=== PATIENT | female | born 1940 | race Caucasian/White ===

== ENCOUNTER → 2019-04-30 21:13 | Outpatient (CLI) | payer MEDICARE, SELFPAY ==
[2019-04-30 18:48] VITALS: BMI 19.5
[2019-04-30 21:50] LABS: AST(SGOT) 18 U/L (15-37); Alanine Aminotransfer ALT/SGPT 23 U/L (13-56); Albumin, Serum 3.5 g/dL (3.2-5.0); Alkaline Phosphatase 93 U/L (45-117); Anion Gap 5 (5-15); BUN 30 mg/dL (7-18); BUN/Creat Ratio 21.7 RATIO (10-20); Calcium,Total 8.9 mg/dL (8.5-10.1); Chloride 104 mmol/L (98-107); Cholesterol 231 mg/dL (200); Creatinine, Serum 1.38 mg/dL (0.55-1.02); EST Glomerular Filtration Rate 39 mL/min (>60); Est Glom Filt Rate - Afr Amer 48 mL/min (>60); Globulin 3.5 g/dL (2.2-4.2); Glucose 105 mg/dL (74-106); High Density Lipoprotein 80 mg/dL; Magnesium 1.9 mg/dL (1.6-2.6); Potassium 3.8 mmol/L (3.5-5.1); Sodium Level 143 mmol/L (136-145); Triglycerides 193 mg/dL; Uric Acid 4.7 mg/dL (2.6-6.0); Very Low Density Lipoprotein 39 mg/dL (5-40)
[2019-04-30 22:25] LABS: Absolute Lymphocyte Count 1.46 X10^3/uL (0.83-4.51); Basophil# 0.07 X10^3/uL; Basophil% 0.9 % (0-1); Eosinophil# 0.14 X10^3/uL; Eosinophils% 1.9 % (0-5); Hematocrit 44.2 % (37-47); Hemoglobin 14.3 g/dL (12.0-15.0); Lymphocyte # 1.46 X10^3/ul (4.0); Lymphocyte % 19.7 % (19-41); Mean Corp Hgb Conc 32.4 g/dL (32-36); Mean Corpuscular Volume 98.9 fL (81-99); Mean Platelet Vol. 9.8 fl (6.2-12.0); Monocyte# 0.66 X10^3/uL; Monocyte% 8.9 % (0-10); NRBC Flagged by Analyzer 0 % (0-5); Neutrophil # 5.01 X10^3/uL (2.7-7.7); Neutrophil % 67.5 % (47-70); Platelet Count 166 K/mm3 (150-450); RBC Distribution Width CV 13.5 % (11.6-14.6); Red Blood Count 4.47 M/mm3 (4.2-5.4); White Blood Count 7.4 K/mm3 (4.4-11.0)
== END ==
PROVIDERS: Referring Provider Nurse Practitioner; Visit Provider Nurse Practitioner
DX: E78.00 Pure hypercholesterolemia, unspecified (principal); G47.62 Sleep related leg cramps
CPT/HCPCS: 80053; 80061; 83735; 84550; 85025

== ENCOUNTER 2020-01-11 23:14 | Inpatient (IN) | payer MEDICARE, SELFPAY ==
[2019-10-01 15:44] VITALS: BMI 24.0
[2020-01-11 23:15] VITALS: BP 168/150; PULSE 77; RESP 34; TEMP 37.1; O2SAT 77; BMI 21.0
[2020-01-11 23:20] VITALS: PULSE 119; RESP 36; O2SAT 99
--- NOTE | 2020-01-11 23:31 | EKG12_ITS ---
Test Reason : SOB Blood Pressure : / mmHG Vent. Rate : 109 BPM Atrial Rate : 109 BPM P-R Int : 136 ms QRS Dur : 090 ms QT Int : 342 ms P-R-T Axes : 066 076 082 degrees QTc Int : 460 ms Sinus tachycardia with Premature atrial complexes Otherwise normal ECG Confirmed by KATELYN GODINEZ, BRENNON ([id number]), editor index SILVIA BELLO ([id number]) on 01/14/2020 9:34:37 AM Referred By: BRIAN Confirmed By:BRENNON ZEPEDA MD
[2020-01-11 23:59] LABS: Absolute Lymphocyte Count 0.56 X10^3/uL (0.83-4.51); Absolute Neutrophil Count 7.7 X10^3/uL (2.0-7.7); Basophil# 0.03 X10^3/uL; Basophil% 0.3 % (0-1); Eosinophil# 0.04 X10^3/uL; Eosinophils% 0.4 % (0-5); Hematocrit 43.6 % (37-47); Hemoglobin 14.2 g/dL (12.0-15.0); Lymphocyte # 0.56 X10^3/ul (4.0); Lymphocyte % 6.1 % (19-41); Mean Corp Hgb Conc 32.6 g/dL (32-36); Mean Corpuscular Hgb 33.3 pg (27.0-32.0); Mean Corpuscular Volume 102.3 fL (81-99); Mean Platelet Vol. 9.6 fl (6.2-12.0); Monocyte# 0.88 X10^3/uL; Monocyte% 9.5 % (0-10); NRBC Flagged by Analyzer 0 % (0-5); Neutrophil # 7.66 X10^3/uL (2.7-7.7); POSITIVE DIFFERENTIAL YES; Platelet Count 187 K/mm3 (150-450); RBC Distribution Width CV 13.2 % (11.6-14.6); Red Blood Count 4.26 M/mm3 (4.2-5.4); White Blood Count 9.2 K/mm3 (4.4-11.0)
[2020-01-12] VITALS (30 sets, daily range): BP systolic 76–187; BP diastolic 58–95; PULSE 98–120; RESP 14–34; TEMP 36.1–37.1; O2SAT 88–100; BMI 21.4; BMI 21.5
[2020-01-12] MEDS: 0.9% Normal Saline 1,000 ML 500 ML IV (00:02)
[2020-01-12 00:03] LABS: Differential Indicated SCAN CRITERIA MET
[2020-01-12] MEDS: Ipratropium/Albuterol Sulfate 3 ML AMPUL.NEB INHALATION ×6 (00:03→22:15)
[2020-01-12] MEDS: Albuterol 2.5 MG/3 ML VIAL.NEB. INHALATION ×4 (00:12→05:09)
[2020-01-12 00:18] LABS: Anion Gap 5 (5-15); BUN 20 mg/dL (7-18); BUN/Creat Ratio 13.7 RATIO (10-20); Calcium,Total 8.3 mg/dL (8.5-10.1); Chloride 106 mmol/L (98-107); Creatinine, Serum 1.46 mg/dL (0.55-1.02); EST Glomerular Filtration Rate 37 mL/min (>60); Est Glom Filt Rate - Afr Amer 45 mL/min (>60); Estimated Creatinine Clearance 25.52 ml/min; Glucose 153 mg/dL (74-106); Potassium 3.4 mmol/L (3.5-5.1); Sodium Level 140 mmol/L (136-145)
[2020-01-12 00:39] LABS: Differential Comment SCANNED
--- NOTE | 2020-01-12 00:44 | CT_ITS ---
STUDY: CTA CHEST REASON FOR EXAM: Female, 79 years old. SOB, ELEVATED D-DIMER RADIATION DOSAGE (If Supplied By Facility): CTDIvol = ( 6.835 ) mGy, DLP = ( 206.50 ) mGycm TECHNIQUE: The examination was performed with the intravenous administration of IV 100 ML ISOVUE 370. Post-processing of the angiographic images was performed, with multiplanar reformation and 3D reconstruction. Individualized dose optimization techniques were used for this CT. COMPARISON: None. FINDINGS: Normal enhancement of the main pulmonary artery and right and left pulmonary arteries. Normal enhancement of the bilateral peripheral pulmonary arteries. There is no demonstrated pulmonary embolism. Normal thoracic aorta and visualized great vessels. There is no demonstrated aortic dissection. Normal heart and pericardium. Normal mediastinum. Normal hilar regions. Normal visualized trachea and bronchi. The lungs are well expanded. Ill-defined subpleural groundglass opacities are seen in the lung apices, may represent atypical pneumonia or viral pneumonia (COVID-19 ?). Normal pleura. Normal chest wall structures. Normal osseous structures. Normal visualized upper abdomen. CT/CTA Chest W/WO Contrast IMPRESSION: No demonstrated pulmonary embolism or arterial dissection. Ill-defined subpleural groundglass opacities are seen in the lung apices, may represent atypical pneumonia or viral pneumonia (COVID-19 ?). Electronically Signed: [place], at 2:01 EDT Tel , Service support ,
[2020-01-12 01:18] LABS: Probe Check PASS; Specimen Processing Control PASS
--- NOTE | 2020-01-12 02:05 | ED.VISSUMM ---
- ER Visit Summary Date of Service: 01/12/20 Chief Complaint: [Shortness of breath] History of Present Illness: The patient is a 79 F [presents to the emergency department complaint of shortness of breath over the last 2 days. Patient's had a bit of a cough and at times sputum production. Shortness of breath is been more severe with activity and exertion. Patient normally wears 3 L of O2 at home. Patient denies any chest pain. She denies any fever. She denies recent travel or surgery. She denies any exposures to anybody with COVID-19. On EMS arrival patient was noted to have a O2 sat of 77%. Patient was given aerosols in route to the hospital and Solu-Medrol 125 mg IV.] Physical Examination: [HEENT-PERRLA, EOMI. Cranial nerves II through XII grossly intact. TMs clear. Mucous membranes moist. No adenopathy. Cardiovascular-regular rate and rhythm without murmur or ectopy Lungs-breath sounds bilaterally with some expiratory wheezes. Patient is tachypneic. Patient has mild conversational dyspnea. Abdomen-normoactive bowel sounds, soft, nontender, no rebound or rigidity, no peritoneal signs. Extremities-intact ?4, normal range of motion, normal pulses, atraumatic] Test Results: [EKG obtained arrival shows sinus tachycardia with a ventricular rate of 109 bpm with no acute segment changes. CBC with differential showed a white count of 9.2, hemoglobin 14, hematocrit 44, plates 181. Chemistries unremarkable. BUN was 20 and creatinine 1.46. Troponin less than 0.015. D-dimer was 1.9. Lactate was 1.0. CTA of the chest was negative for PE or dissection. She had some increased haziness in the upper lobes and could not rule out viral pneumonia versus atypical pneumonia. Blood cultures ordered and pending. COVID-19 test was negative.] Emergency Department Course and Treatment: [Patient had DuoNeb aerosol given. Patient was placed on BiPAP. Patient started on Levaquin 750 mg IV.] Treatment Plan: [Admit] Disposition: [Admit] Impression: [COPD exacerbation Hypoxemia Respiratory failure] This note was generated with [employer] software. It may contain incorrect words, spelling, and punctuation that were not noted in review of the chart prior to signing ED Disposition - Plan for ED Patient: Referrals: Kulkarni,Mariangel, AEROBICS TEACHER-C [Primary Care Provider] -
[2020-01-12] MEDS: levoFLOXacin IV 750 MG/150 ML BAG 100 MG IV (02:49)
[2020-01-12 03:01] LABS: Allen Test Positive; Base Excess 0 mmol/L (-2 to +2); Bicarbonate 26.5 mmol/L (22-26); Blood Gas Specimen Type ART; FI02 30; O2 Delivery Device BiPAP; PO2 66 mmHG (75-100); SITE R Radial; SO2 90 % (95-99); Total Carbon Dioxide 28 mmol/L; pH 7.31 (7.35-7.45)
--- NOTE | 2020-01-12 03:06 | PCM.HP.STD ---
Problem List (1) COPD with acute exacerbation Status: Chronic (2) Sleep apnea in adult Status: Chronic (3) HTN (hypertension) Status: Chronic Qualifiers: (4) COPD (chronic obstructive pulmonary disease) with acute bronchitis Status: Chronic (5) COPD with exacerbation Status: Chronic History of Present Illness Date of Admission: 01/12/20 Chief Complaint: SOB The patient is a 79 year old F with a significant history of bowel malignancy status post bowel resection; cervical cancer status post TABSO; hypertension and COPD who presented emergency department with 2-day history of progressively worsening shortness of breath. Her shortness of breath is at rest and is increased markedly with mild exertion. Associated with his symptoms is productive cough of copious dark sputum. She has a chronic cough of clear sputum. However this time around her sputum is darker and is more copious. She has wheezes. At baseline she uses 2 L of oxygen but she has had to increase her oxygen demand 3 L. Several breathing treatments at home did not help her. When paramedics arrived her oxygen saturation was 77%. Patient was given breathing treatments and 125 mg of Solu-medrol by paramedics. She has wheezes. She denies fever or chills. She is at home by herself all the time. Every time that she goes out she wears a mask. She denies any known contact with anyone with COVID-19 virus infection. Past Medical History Past Medical History (Chronic Problems): Chronic Problems (Last Reviewed 01/12/20 @ 03:[address] Grant Lennon MD) COPD with exacerbation (Chronic) COPD with acute exacerbation (Chronic) Sleep apnea in adult (Chronic) HTN (hypertension) (Chronic) COPD (chronic obstructive pulmonary disease) with acute bronchitis (Chronic) Medical History: Medical History (Last Reviewed 01/12/20 @ 03:[address] 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 Seizure disorder G40.909 COPD exacerbation J44.1 Allergies Penicillins Allergy (Severe, Verified 12/04/19 13:42) hives Home Medications: Ambulatory Orders Medication Instructions Recorded oxygen-air delivery systems See Rx Instructions .ROUTE 03/26/19 .MEDSUPPLY #1 albuterol sulfate 90 mcg/actuation 2 puff INHALATION Q4H PRN 90 Days 06/04/19 aerosol inhaler #25.5 g amlodipine 10 mg tablet 10 mg PO DAILY #90 tab 06/04/19 budesonide-formoterol HFA 160 2 puff INHALATION BID #30.6 g 06/04/19 mcg-4.5 mcg/actuation aerosol inhaler calcium carbonate 600 mg (1,500 1 cap PO BID #180 cap 06/04/19 mg)-vitamin D3 500 unit capsule docusate sodium 100 mg capsule 100 mg PO BID PRN 06/04/19 fluticasone furoate 100 1 inh INHALATION DAILY 90 Days #90 06/04/19 mcg-vilanterol 25 mcg/dose ea inhalation powder ipratropium 0.5 mg-albuterol 3 mg 3 ml INHALATION Q4H PRN #180 ml 06/04/19 (2.5 mg base)/3 mL nebulization soln lisinopril 40 mg tablet 40 mg PO DAILY #90 tab 06/04/19 methimazole 5 mg tablet 2.5 mg PO DAILY #45 tab 06/04/19 metoprolol succinate 100 mg 100 mg PO DAILY #90 tab 06/04/19 tablet,extended release 24 hr phenytoin sodium extended 100 mg 100 mg PO BID #180 cap 06/04/19 capsule rosuvastatin 10 mg tablet 10 mg PO DAILY #90 tab 06/04/19 trazodone 100 mg tablet 100 mg PO QHS #90 tab 06/04/19 clonidine HCl 0.2 mg tablet 0.2 mg PO BID #180 tab 08/20/19 nicotine 14 mg/24 hr daily 1 patch TRANSDERMAL DAILY #28 ea 10/01/19 transdermal patch Surgical History: Surgical History (Last Reviewed 01/12/20 @ 03:[address] Grant Lennon MD) FH: total abdominal hysterectomy and bilateral salpingo-oophorectomy Z84.2 History of bowel resection Z90.49 Smoking Status: Current every day smoker Tobacco Use: Cigarettes Alcohol: None - *Family History Maternal Family History: Family History (Last Reviewed 01/12/20 @ 03:[address] Grant Lennon MD) Aunt Breast cancer Review of Systems Constitutional: Reports: Weakness, Fatigue. Denies: Chills, Fever, Weight Change HEENT: Denies: Head Aches, Sinus Congestion, Sinus Drainage Cardiovascular: Denies: Chest Pain, Palpitations Respiratory: Reports: Cough, Shortness of breath at rest, Sputum production, Wheezing Gastrointestinal: Denies: Abdominal Pain, Nausea, Vomiting Genitourinary: Denies: Dysuria Musculoskeletal: Denies: Joint Pain, Joint Tenderness Skin: Denies: Rash, Wounds Neurological: Denies: Numbness, Tingling, Focal weakness Psychiatric: Denies: Anxiety, Depression, Homicidal Ideations, Suicidal Ideations Hematologic/ Lymphatic: Denies: Easy Bruising, Easy Bleeding VTE Information - Inpt Only VTE Present on Admission: No VTE Mechan Device Prophylaxis: None VTE Pharm Prophylaxis ordered?: Yes - Physical Exam Vitals/I&O's: Vital Signs Temp Pulse Resp BP Pulse Ox 97.0 F L 104 H 26 H 94/83 H 95 01/12/20 02:50 01/12/20 02:50 01/12/20 02:50 01/12/20 02:50 01/12/20 02:50 Oxygen Flow Rate (L/min) 5 Oxygen Delivery Method Bi-pap Weight: 52.2 kg Body Mass Index (BMI) 21.0 Intake and Output for Last 24 Hours 01/10/20 01/11/20 01/12/20 23:59 23:59 23:59 Intake Total 1000 / 1000 Balance 1000 / 1000 General: Alert, Oriented x3, Cooperative HEENT: Atraumatic, PERRLA, EOMI, Normocephalic Neck: Supple, No JVD, Negative Carotid Bruits Lungs: Diminished, Rhonchi, Short of Breath, Tachypneic, Using Accessory Muscles, Wheezes Cardiovascular: Normal S1, Normal S2, No murmurs, Tachycardic Abdomen: Bowel Sounds Present, Soft, Non Tender Extremities: No edema, Capillary Refill Less than 3 Seconds Skin: No rashes, No breakdown Musculoskeletal: No Tenderness to Palpation of Joints or Extremities Neurological: Cranial nerves II-XII grossly intact Psych/Mental Status: Normal Affect, Appropriate Laboratory Results 01/11/20 23:45: WBC 9.2, RBC 4.26, Hgb 14.2, Hct 43.6, MCV 102.3 H, MCH 33.3 H, MCHC 32.6, RDW Std Deviation 50.0 H, RDW Coeff of Avelino 13.2, Plt Count 187, MPV 9.6, Immature Gran % (Auto) 0.700, Neut % (Auto) 83.0 H, Lymph % (Auto) 6.1 L, [place] % (Auto) 9.5, Eos % (Auto) 0.4, Baso % (Auto) 0.3, Absolute Neuts (auto) 7.7, Absolute Lymphs (auto) 0.56 L, Nucleated RBC % 0, Differential Comment SCANNED 01/11/20 23:45: D-Dimer Quant (PE/DVT) 1.90 H* 01/11/20 23:45: Sodium 140, Potassium 3.4 L, Chloride 106, Carbon Dioxide 29.0, Anion Gap 5, BUN 20 H, Creatinine 1.46 H, Estim Creat Clear Calc 25.52, Est GFR (MDRD) Af Amer 45 L, Est GFR (MDRD) Non-Af 37 L, BUN/Creatinine Ratio 13.7, Glucose 153 H, Calcium 8.3 L, Troponin I < 0.015 01/11/20 23:45: Lactic Acid 1.0 01/11/20 23:50: COVID-19 (NINOSKA) Negative 01/12/20 02:52: Specimen Type ART, Sample Site R Radial, pH 7.31 L, Bicarbonate Actual 26.5 H, Total CO2 28, Base Excess 0, O2 Saturation 90 L, O2 % 30, ABG pCO2 53.0 H, ABG pO2 66 L, Vishnu Test Positive, Respiration Rate 14.0000, O2 Delivery Device BiPAP Current Medications Levofloxacin (Levaquin Iv) 750 mg in 150 mls @ 100 mls/hr IV X1 ONE Stop: 01/12/20 03:34 Last Admin: 01/12/20 02:49 Dose: 100 mls/hr Documented by: Assessment/Plan The patient is a 79 year old F with a significant history of bowel malignancy status post bowel resection; cervical cancer status post TABSO; hypertension and COPD who presented emergency department with 2-day history of progressively worsening shortness of breath; increased copious dark sputum; wheezing; and increased hypoxia requiring BiPAP at emergency department. Acute hypoxemic respiratory failure secondary to COPD exacerbation Patient required BiPAP at emergency department due to increased work of breathing and hypoxia with partial oxygen saturation of 66 mmHg on ABG. Independent interpretation of actual CTA chest showed ill-defined opacities in lung apexes. Received Solu-Medrol 125 mg at emergency department. Will be continued on Solu-Medrol 40 mg every 8 hours. Received breathing treatments by paramedics. Also was given DuoNeb at emergency department. DuoNeb every 4 hours while awake ordered. Albuterol as needed Received Levaquin IV at emergency department; continued and adjusted per creatinine clearance Placed on BiPAP at emergency department; continued. We will admit to PCU on stepdown because of marginal blood pressures. Patient does not want CPR ; intubation or pressors and so there is no need for ICU admission at this time. Covid-19 screen was negative. Patient denies any exposure to someone with a covid. Also chest imaging is not classic for a covid although there is some ill-defined opacity at apex. Will get comprehensive respiratory pathogen panel. Monitor BMP and CBC Hypokalemia On presentation her potassium was 3.4. We will replace with 20 mEq of potassium taking note of CKD. History of hypertension On Presentation her blood pressure was marginal Hold all home blood pressure medications. CKD stage III Stable Tobacco abuse Counseled Nicotine patch prescribed. DVT Prophylaxis Subcutaneous Lovenox Inpatient E&M: 77251 Init Hosp L3
[2020-01-12 04:25] LABS: Absolute Lymphocyte Count 0.25 X10^3/uL (0.83-4.51); Absolute Neutrophil Count 8.3 X10^3/uL (2.0-7.7); Basophil# 0.03 X10^3/uL; Basophil% 0.3 % (0-1); Eosinophil# 0.04 X10^3/uL; Eosinophils% 0.4 % (0-5); Hematocrit 40.1 % (37-47); Hemoglobin 12.7 g/dL (12.0-15.0); Lymphocyte # 0.25 X10^3/ul (4.0); Lymphocyte % 2.8 % (19-41); Mean Corp Hgb Conc 31.7 g/dL (32-36); Mean Corpuscular Volume 104.2 fL (81-99); Mean Platelet Vol. 9.4 fl (6.2-12.0); Monocyte% 3.3 % (0-10); NRBC Flagged by Analyzer 0 % (0-5); Neutrophil # 8.32 X10^3/uL (2.7-7.7); Neutrophil % 92.8 % (47-70); POSITIVE DIFFERENTIAL YES; POSITIVE MORPHOLOGY YES; Platelet Count 168 K/mm3 (150-450); RBC Distribution Width CV 13.4 % (11.6-14.6); RBC Distribution Width SD 51.8 fl (35.1-43.9); Red Blood Count 3.85 M/mm3 (4.2-5.4)
[2020-01-12 04:38] LABS: Anion Gap 5 (5-15); BUN 20 mg/dL (7-18); BUN/Creat Ratio 14.6 RATIO (10-20); Calcium,Total 7.8 mg/dL (8.5-10.1); Chloride 106 mmol/L (98-107); Creatinine, Serum 1.37 mg/dL (0.55-1.02); EST Glomerular Filtration Rate 40 mL/min (>60); Est Glom Filt Rate - Afr Amer 48 mL/min (>60); Glucose 216 mg/dL (74-106); Phosphorus 3.5 mg/dL (2.5-4.9); Potassium 3.6 mmol/L (3.5-5.1); Sodium Level 138 mmol/L (136-145)
[2020-01-12 05:03] LABS: Differential Indicated SCAN CRITERIA MET
[2020-01-12 05:05] LABS: Differential Comment SCANNED
[2020-01-12] MEDS: 0.9% Saline Lock 10 ML Syringe IV ×3 (05:39→21:59)
[2020-01-12] MEDS: Enoxaparin 30 MG/0.3 ML Syringe SC (08:26)
[2020-01-12] MEDS: Phenytoin Na 100 MG Capsule PO ×2 (08:26→16:30)
[2020-01-12] MEDS: guaiFENesin 1,200 MG Tablet 1200 MG PO ×2 (08:26→21:58)
[2020-01-12] MEDS: Methimazole 5 MG Tablet 2.5 MG PO (08:26)
--- NOTE | 2020-01-12 10:22 | PN_ITS ---
Subjective: Patient seen and examined. She was admitted with a complaint of shortness of breath, and is being managed for acute COPD exacerbation. COVID 19 test was negative. She complains of still feeling shortness of breath. However, she thinks it is much better than when she came in. She still has a dry couhg. Tachycardia and tachypnea have improved. She is now off BIPAP and is on 2L of oxygen by nasal canula. Vitals/I&O's: Vital Signs Temp Pulse Resp BP Pulse Ox 98.3 F 99 20 H 106/78 100 01/12/20 10:00 01/12/20 10:00 01/12/20 10:00 01/12/20 10:00 01/12/20 10:00 Oxygen Flow Rate (L/min) 2 Oxygen Delivery Method Nasal Cannula Weight: 117 lb 8.102 oz Body Mass Index (BMI) 21.4 Intake and Output for Last 24 Hours 01/10/20 01/11/20 01/12/20 23:59 23:59 23:59 Intake Total 1390 / 1390 Balance 1390 / 1390 General: Alert, Oriented x3, Cooperative, No apparent distress HEENT: Atraumatic, PERRLA, EOMI, Normocephalic Oral: Dry Mucosa Neck: Supple, No JVD, Negative Carotid Bruits Lungs: - - diminished breath sounds bibasally, no wheezes or crackles. on 2L of oxygen. Cardiovascular: Regular rate, Regular Rhythm, Normal S1, Normal S2, No murmurs Abdomen: Bowel Sounds Present, Soft, Non Tender Extremities: No clubbing, No cyanosis, No edema, Capillary Refill Less than 3 Seconds Skin: No rashes, No breakdown Musculoskeletal: No Tenderness to Palpation of Joints or Extremities Lymphatic: No Cervical, Supraclavicular, or Inguinal Adenopathy Neurological: Cranial nerves II-XII grossly intact, Neuro grossly intact, Motor Exam 5/5 strength throughout Psych/Mental Status: Normal Affect, Appropriate, Alert and oriented to time, place, person, mood and affect Laboratory Results 01/11/20 23:45: WBC 9.2, RBC 4.26, Hgb 14.2, Hct 43.6, MCV 102.3 H, MCH 33.3 H, MCHC 32.6, RDW Std Deviation 50.0 H, RDW Coeff of Avelino 13.2, Plt Count 187, MPV 9.6, Immature Gran % (Auto) 0.700, Neut % (Auto) 83.0 H, Lymph % (Auto) 6.1 L, [place] % (Auto) 9.5, Eos % (Auto) 0.4, Baso % (Auto) 0.3, Absolute Neuts (auto) 7.7, Absolute Lymphs (auto) 0.56 L, Nucleated RBC % 0, Differential Comment SCANNED 01/11/20 23:45: D-Dimer Quant (PE/DVT) 1.90 H* 01/11/20 23:45: Sodium 140, Potassium 3.4 L, Chloride 106, Carbon Dioxide 29.0, Anion Gap 5, BUN 20 H, Creatinine 1.46 H, Estim Creat Clear Calc 25.52, Est GFR (MDRD) Af Amer 45 L, Est GFR (MDRD) Non-Af 37 L, BUN/Creatinine Ratio 13.7, Glucose 153 H, Calcium 8.3 L, Troponin I < 0.015 01/11/20 23:45: Lactic Acid 1.0 01/11/20 23:50: COVID-19 ([facility]IN[facility]KA) Negative 01/12/20 02:52: Specimen Type ART, Sample Site R Radial, pH 7.31 L, Bicarbonate Actual 26.5 H, Total CO2 28, Base Excess 0, O2 Saturation 90 L, O2 % 30, ABG pCO2 53.0 H, ABG pO2 66 L, Vishnu Test Positive, Respiration Rate 14.0000, O2 Delivery Device BiPAP 01/12/20 04:20: WBC 9.0, RBC 3.85 L, Hgb 12.7, Hct 40.1, MCV 104.2 H, MCH 33.0 H , MCHC 31.7 L, RDW Std Deviation 51.8 H, RDW Coeff of Avelino 13.4, Plt Count 168, MPV 9.4, Immature Gran % (Auto) 0.400, Neut % (Auto) 92.8 H, Lymph % (Auto) 2.8 L, [place] % (Auto) 3.3, Eos % (Auto) 0.4, Baso % (Auto) 0.3, Absolute Neuts (auto) 8.3 H, Absolute Lymphs (auto) 0.25 L, Nucleated RBC % 0, Differential Comment SCANNED 01/12/20 04:20: Sodium 138, Potassium 3.6, Chloride 106, Carbon Dioxide 27.0, Anion Gap 5, BUN 20 H, Creatinine 1.37 H, Estim Creat Clear Calc 27.20, Est GFR (MDRD) Af Amer 48 L, Est GFR (MDRD) Non-Af 40 L, BUN/Creatinine Ratio 14.6, Glucose 216 H, Calcium 7.8 L, Phosphorus 3.5 Diagnostic Data Chest CTA 01/12/20 00:44 IMPRESSION: No demonstrated pulmonary embolism or arterial dissection. Ill-defined subpleural groundglass opacities are seen in the lung apices, may represent atypical pneumonia or viral pneumonia (COVID-19 ?). Electronically Signed: Antonio Minerva, at 2:01 EDT Tel , Service support , Current Medications Acetaminophen (Tylenol) 650 mg PO Q6H PRN PRN PRN Reason: Pain Score 1-10/Temp > 100.7 F Albuterol Sulfate (Ventolin Aerosols) 2.5 mg INHALATION Q2H PRN PRN PRN Reason: Shortness of Breath/Wheezing Last Admin: 01/12/20 05:09 Dose: 2.5 mg Documented by: Albuterol/Ipratropium (Duoneb) 3 ml INHALATION Q4HWA.RT [facility] Last Admin: 01/12/20 07:24 Dose: 3 ml Documented by: Atorvastatin Calcium (Lipitor) 20 mg PO DAILY@2200 [facility] Docusate Sodium (Colace) 100 mg PO BID PRN PRN PRN Reason: Constipation Enoxaparin Sodium (Lovenox) 30 mg SC DAILY [facility] Last Admin: 01/12/20 08:26 Dose: 30 mg Documented by: Guaifenesin (Mucinex) 1,200 mg PO BID [facility] Last Admin: 01/12/20 08:26 Dose: 1,200 mg Documented by: Levofloxacin (Levaquin Iv) 750 mg in 150 mls @ 100 mls/hr IV Q48@2200 [facility] Sodium Chloride () 250 mls @ 15 mls/hr IV .[id number] PRN PRN Reason: Saline Flush Sodium Chloride () 250 mls @ 15 mls/hr IV .[id number] PRN PRN Reason: Additional IVPB Infusion Melatonin (Melatonin) 3 mg PO QHS PRN PRN PRN Reason: INSOMNIA Methimazole (Tapazole) 2.5 mg PO DAILY [facility] Last Admin: 01/12/20 08:26 Dose: 2.5 mg Documented by: Methylprednisolone (Solu-Medrol) 40 mg IV Q8 [facility] Last Admin: 01/12/20 05:39 Dose: 40 mg Documented by: Nicotine (Nicoderm Cq (Pbkc)) 21 mg TRANSDERM. DAILY [facility] Last Admin: 01/12/20 08:27 Dose: 21 mg Documented by: Ondansetron HCl (Zofran) 4 mg IV Q8H PRN PRN PRN Reason: Nausea Phenytoin Sodium (Dilantin) 100 mg PO BIDCM [facility] Last Admin: 01/12/20 08:26 Dose: 100 mg Documented by: Sodium Chloride () 10 - 40 ml IV UD PRN PRN Reason: SALINE FLUSH Last Admin: 01/12/20 05:39 Dose: 40 ml Documented by: Trazodone HCl (Desyrel) 100 mg PO QHS [facility] STROKE Vital Signs/Narrative: Vital Signs Temp Pulse Resp BP BP Pulse Ox 01/12/20 10:00 98.3 F 99 20 H 106/78 100 01/12/20 08:00 98.8 F 103 H 22 H 104/83 H 94 01/12/20 07:24 98 22 H 98 01/12/20 07:03 100 Medical Necessity - Tobacco Use Smoking Status: Current every day smoker Tobacco Use: Cigarettes Assessment/Plan # Acute hypoxic respiratory failure due to COPD exacerbation * now off BIPAP and on 2L of oxygen by nasal canula * on breathing treatments with bronchodilators * CTA of chest showed no PE, but showed ill defined subpleural groundglass opacities in the lung apices which may represent atypical pneumonia or viral pneumonia * COVID 19 test was negative * on IV levaquin * respiratory panel pending * on IV solumedrol * titrate oxygen to maintain sats>90% * #Hypokalemia: resolved #COPD exacerbation: as under acute hypoxic respiratory failure # Hypertension: BP meds held on admission o/a of low BP. BP this morning is 106.78. Will continue holding BP meds #Seizure disorder: On phenytoin. #Hyperlipidemia: On statin. #CKD stage III: Creatinine is 1.37 which is around his baseline. Stable. #Nicotine dependence: on nicotine patch DVT prophylaxis:on lovenox renal dose Inpatient E&M: [id number] [facility] Hosp L3
[2020-01-12] MEDS: Atorvastatin Calcium 20 MG Tablet PO (21:58)
[2020-01-12] MEDS: traZODone 100 MG Tablet PO (23:25)
[2020-01-13] VITALS (17 sets, daily range): BP systolic 161–188; BP diastolic 80–98; PULSE 90–105; RESP 16–26; TEMP 36.5–36.8; O2SAT 92–98
--- NOTE | 2020-01-13 01:00 | CPS ---
nursing stated that the pt became nauseous after applying the BiPAP and pt was unable to tolerate. pt on O2 at 3 lpm nasal cannula
[2020-01-13] MEDS: Ipratropium/Albuterol Sulfate 3 ML AMPUL.NEB INHALATION ×5 (04:40→20:18)
[2020-01-13] MEDS: 0.9% Saline Lock 10 ML Syringe IV ×3 (05:03→22:06)
[2020-01-13 06:13] LABS: Absolute Lymphocyte Count 0.54 X10^3/uL (0.83-4.51); Basophil# 0.03 X10^3/uL; Basophil% 0.4 % (0-1); Hematocrit 40.8 % (37-47); Lymphocyte # 0.54 X10^3/ul (4.0); Lymphocyte % 6.6 % (19-41); Mean Corp Hgb Conc 31.9 g/dL (32-36); Mean Corpuscular Hgb 33.5 pg (27.0-32.0); Mean Corpuscular Volume 105.2 fL (81-99); Mean Platelet Vol. 9.4 fl (6.2-12.0); Monocyte# 0.48 X10^3/uL; Monocyte% 5.9 % (0-10); NRBC Flagged by Analyzer 0 % (0-5); Neutrophil # 6.96 X10^3/uL (2.7-7.7); Neutrophil % 84.9 % (47-70); POSITIVE DIFFERENTIAL YES; POSITIVE MORPHOLOGY YES; Platelet Count 176 K/mm3 (150-450); RBC Distribution Width CV 13.3 % (11.6-14.6); RBC Distribution Width SD 51.8 fl (35.1-43.9); Red Blood Count 3.88 M/mm3 (4.2-5.4); White Blood Count 8.2 K/mm3 (4.4-11.0)
[2020-01-13 06:17] LABS: Differential Indicated SCAN CRITERIA MET
[2020-01-13 06:43] LABS: Differential Comment SCANNED
[2020-01-13 06:45] LABS: Anion Gap 5 (5-15); BUN 26 mg/dL (7-18); BUN/Creat Ratio 18.7 RATIO (10-20); Calcium,Total 8.4 mg/dL (8.5-10.1); Chloride 108 mmol/L (98-107); Creatinine, Serum 1.39 mg/dL (0.55-1.02); EST Glomerular Filtration Rate 39 mL/min (>60); Est Glom Filt Rate - Afr Amer 47 mL/min (>60); Estimated Creatinine Clearance 26.81 ml/min; Glucose 137 mg/dL (74-106); Potassium 3.9 mmol/L (3.5-5.1); Sodium Level 140 mmol/L (136-145)
[2020-01-13] MEDS: guaiFENesin 1,200 MG Tablet 1200 MG PO ×2 (08:46→22:06)
[2020-01-13] MEDS: Enoxaparin 30 MG/0.3 ML Syringe SC (08:46)
[2020-01-13] MEDS: Methimazole 5 MG Tablet 2.5 MG PO (08:46)
[2020-01-13] MEDS: Phenytoin Na 100 MG Capsule PO ×2 (08:46→16:22)
[2020-01-13] MEDS: Lisinopril 40 MG Tablet PO (10:57)
[2020-01-13] MEDS: amLODIPine 10 MG Tablet PO (10:57)
[2020-01-13] MEDS: Metoprolol(XL)Succ 100 MG Tablet PO (11:23)
--- NOTE | 2020-01-13 11:29 | CASEMGMT ---
IRMA KEN assessment: Face to Face with patient for initial transition planning/care coordination assessment. IRMA KEN introduced self and role at [facility], pt voices understanding and consents to assessment at this time. Pt is sitting up in bed in no distress at this time. Pt is hard of hearing. Pt is A/Ox4 at this time and answers all questions appropriately at this time. Care providers, pharmacy, and demographics verified/updated at this time. Presentation: SOB, EMS gave aerosols/steroids w/ improvement Admitting dx: COPD exac PCP: Shad Specialists: Pt states no current specialists. Preferred Pharmacy: [facility] mail order Insurance: [facility] Prescription Benefit: [employer] Living Will/HPOA: Pt states has LW/HPOA and is aware that they are not on file at [facility] at this time. Pt states her daughter, Jeanine Trejo, is HPOA. LNOK: Jeanine Trejo, daughter/HPOA Living Arrangements: Pt states lives alone on main floor of apartment and states no concerns at home at this time. Pt states her apt is connected to her nephew's home. Pt states is normally independent with ADL's. Transportation: Pt states that she does not drive but her nephew's will take her where she needs to go and states no transportation concerns at this time. DME/HHC: Pt states has the following DME: cane, w/c, walker, grab bars, nebulizer, and 3 liters continuous home oxygen. Pt does not remember who her home oxygen is set up with at this time. Pt states no need for any further DME. Pt states has had HHC in the past but has not been to SNF. Pt states no concerns with going home at time of discharge. Pt states is retired. Pt states smokes at least a 1/2pk of cigarettes daily but does not drink ETOH. Pt states no further concerns/needs at this time. CM to follow for any further discharge planning/needs. Advised pt to ask for CM if any further questions/concerns/needs arise, voices understanding. Pt Goal: Home Plan: [place] IRMA KEN
--- NOTE | 2020-01-13 11:57 | PCM.PN.HOSP ---
Subjective: Patient seen and examined. She thinks her breathing is a bit better, but she is still coughing and wheezing, and is not back at her baseline. BP has been poorly controlled. Labs are otherwise WNL. She is on 4L of oxygen. Vitals/I&O's: Vital Signs Temp Pulse Resp BP Pulse Ox 98.0 F 96 16 188/98 H 98 01/13/20 10:15 01/13/20 11:23 01/13/20 10:20 01/13/20 10:15 01/13/20 10:15 Oxygen Flow Rate (L/min) 4 Oxygen Delivery Method Nasal Cannula Weight: 117 lb 8.102 oz Body Mass Index (BMI) 21.4 Intake and Output for Last 24 Hours 01/11/20 01/12/20 01/13/20 23:59 23:59 23:59 Intake Total 2490 / 2490 40 / 40 Output Total 325 / 325 Balance 2165 / 2165 40 / 40 General: Alert, Oriented x3, Cooperative, No apparent distress HEENT: Atraumatic, PERRLA, EOMI, Normocephalic Oral: Dry Mucosa Neck: Supple, No JVD, Negative Carotid Bruits Lungs: - - diminished breath sounds bibasally, bilateral wheezing. on 4L of oxygen. Cardiovascular: Regular rate, Regular Rhythm, Normal S1, Normal S2, No murmurs Abdomen: Bowel Sounds Present, Soft, Non Tender Extremities: No clubbing, No cyanosis, No edema, Capillary Refill Less than 3 Seconds Skin: No rashes, No breakdown Musculoskeletal: No Tenderness to Palpation of Joints or Extremities Lymphatic: No Cervical, Supraclavicular, or Inguinal Adenopathy Neurological: Cranial nerves II-XII grossly intact, Neuro grossly intact, Motor Exam 5/5 strength throughout Psych/Mental Status: Normal Affect, Appropriate, Alert and oriented to time, place, person, mood and affect Microbiology Past 72 Hours 01/11/20 23:50 Mucosa - Nasopharyngeal Respiratory Panel (PCR) - Final Laboratory Results 01/13/20 05:46: WBC 8.2, RBC 3.88 L, Hgb 13.0, Hct 40.8, MCV 105.2 H, MCH 33.5 H, MCHC 31.9 L, RDW Std Deviation 51.8 H, RDW Coeff of Avelino 13.3, Plt Count 176, MPV 9.4, Immature Gran % (Auto) 2.200 H, Neut % (Auto) 84.9 H, Lymph % (Auto) 6.6 L, [place] % (Auto) 5.9, Eos % (Auto) 0.0, Baso % (Auto) 0.4, Absolute Neuts (auto) 7.0, Absolute Lymphs (auto) 0.54 L, Nucleated RBC % 0, Differential Comment SCANNED 01/13/20 05:46: Sodium 140, Potassium 3.9, Chloride 108 H, Carbon Dioxide 27.0, Anion Gap 5, BUN 26 H, Creatinine 1.39 H, Estim Creat Clear Calc 26.81, Est GFR (MDRD) Af Amer 47 L, Est GFR (MDRD) Non-Af 39 L, BUN/Creatinine Ratio 18.7, Glucose 137 H, Calcium 8.4 L Diagnostic Data Chest CTA 01/12/20 00:44 IMPRESSION: No demonstrated pulmonary embolism or arterial dissection. Ill-defined subpleural groundglass opacities are seen in the lung apices, may represent atypical pneumonia or viral pneumonia (COVID-19 ?). Electronically Signed: [place], at 2:01 EDT Tel , Service support , Current Medications Acetaminophen (Tylenol) 650 mg PO Q6H PRN PRN PRN Reason: Pain Score 1-10/Temp > 100.7 F Albuterol Sulfate (Ventolin Aerosols) 2.5 mg INHALATION Q2H PRN PRN PRN Reason: Shortness of Breath/Wheezing Last Admin: 01/12/20 05:09 Dose: 2.5 mg Documented by: Albuterol/Ipratropium (Duoneb) 3 ml INHALATION Q4HWA.RT [facility] Last Admin: 01/13/20 10:20 Dose: 3 ml Documented by: Amlodipine Besylate (Norvasc) 10 mg PO DAILY [facility] Atorvastatin Calcium (Lipitor) 20 mg PO DAILY@2200 [facility] Last Admin: 01/12/20 21:58 Dose: 20 mg Documented by: Clonidine (Catapres) 0.2 mg PO BID [facility] Docusate Sodium (Colace) 100 mg PO BID PRN PRN PRN Reason: Constipation Enoxaparin Sodium (Lovenox) 30 mg SC DAILY [facility] Last Admin: 01/13/20 08:46 Dose: 30 mg Documented by: Guaifenesin (Mucinex) 1,200 mg PO BID [facility] Last Admin: 01/13/20 08:46 Dose: 1,200 mg Documented by: Levofloxacin (Levaquin Iv) 750 mg in 150 mls @ 100 mls/hr IV Q48@2200 [facility] Sodium Chloride () 250 mls @ 15 mls/hr IV .[id number] PRN PRN Reason: Saline Flush Sodium Chloride () 250 mls @ 15 mls/hr IV .[id number] PRN PRN Reason: Additional IVPB Infusion Lisinopril (Zestril) 40 mg PO DAILY [facility] Melatonin (Melatonin) 3 mg PO QHS PRN PRN PRN Reason: INSOMNIA Methimazole (Tapazole) 2.5 mg PO DAILY [facility] Last Admin: 01/13/20 08:46 Dose: 2.5 mg Documented by: Methylprednisolone (Solu-Medrol) 40 mg IV Q8 [facility] Last Admin: 01/13/20 05:03 Dose: 40 mg Documented by: Metoprolol Succinate (Toprol Xl (Beta Raffy)) 100 mg PO DAILY [facility] Nicotine (Nicoderm Cq (Pbkc)) 21 mg TRANSDERM. DAILY [facility] Last Admin: 01/13/20 08:46 Dose: 21 mg Documented by: Ondansetron HCl (Zofran) 4 mg IV Q8H PRN PRN PRN Reason: Nausea Phenytoin [facility]in) [facility] Last Admin: 01/13/20 08:46 Dose: 100 mg Documented by: Sodium Chloride () 10 - 40 ml IV UD PRN PRN Reason: SALINE FLUSH Last Admin: 01/13/20 05:03 Dose: 20 ml Documented by: Trazodone HCl (Desyrel) 100 mg PO QHS [facility] Last Admin: 01/12/20 23:25 Dose: 100 mg Documented by: STROKE Vital Signs/Narrative: Vital Signs Temp Pulse Resp BP Pulse Ox 01/13/20 11:23 96 01/13/20 10:20 95 16 01/13/20 10:15 98.0 F 101 H 20 H 188/98 H 98 Medical Necessity - Tobacco Use Smoking Status: Current every day smoker Tobacco Use: Cigarettes Assessment/Plan # Acute hypoxic respiratory failure due to COPD exacerbation now off BIPAP and on 4L of oxygen by nasal canula on breathing treatments with bronchodilators CTA of chest showed no PE, but showed ill defined subpleural groundglass opacities in the lung apices COVID 19 test was negative on IV levaquin respiratory panel negative on IV solumedrol titrate oxygen to maintain sats>90%. #Hypokalemia: resolved #COPD exacerbation: as under acute hypoxic respiratory failure # Hypertension: BP up to the 180s systolic. Will resume BP meds- amlodipine, metoprolol and lisinopril #Seizure disorder: On phenytoin. #Hyperlipidemia: On statin. #CKD stage III: Creatinine is 1.39 which is around his baseline. Stable. #Nicotine dependence: on nicotine patch DVT prophylaxis:on lovenox renal dose Inpatient E&M: [id number] [facility] L3
[2020-01-13] MEDS: Atorvastatin Calcium 20 MG Tablet PO (22:06)
[2020-01-13] MEDS: cloNIDine HCl 0.2 MG Tablet PO (22:06)
[2020-01-13] MEDS: traZODone 100 MG Tablet PO (22:07)
[2020-01-14] VITALS (12 sets, daily range): BP systolic 156–170; BP diastolic 75–89; PULSE 69–94; RESP 16–22; TEMP 36.4–36.6; O2SAT 92–96
[2020-01-14] MEDS: Ipratropium/Albuterol Sulfate 3 ML AMPUL.NEB INHALATION ×4 (01:58→15:36)
--- NOTE | 2020-01-14 02:41 | CPS ---
pt refuses bipap
[2020-01-14] MEDS: 0.9% Saline Lock 10 ML Syringe IV (05:55)
[2020-01-14 06:42] LABS: Anion Gap 3 (5-15); BUN 36 mg/dL (7-18); BUN/Creat Ratio 27.9 RATIO (10-20); Chloride 108 mmol/L (98-107); Creatinine, Serum 1.29 mg/dL (0.55-1.02); EST Glomerular Filtration Rate 43 mL/min (>60); Est Glom Filt Rate - Afr Amer 51 mL/min (>60); Estimated Creatinine Clearance 28.89 ml/min; Glucose 168 mg/dL (74-106); Potassium 4.3 mmol/L (3.5-5.1); Sodium Level 140 mmol/L (136-145)
[2020-01-14 08:32] LABS: Absolute Lymphocyte Count 0.61 X10^3/uL (0.83-4.51); Basophil# 0.04 X10^3/uL; Basophil% 0.5 % (0-1); Hematocrit 40.8 % (37-47); Hemoglobin 13.1 g/dL (12.0-15.0); Lymphocyte # 0.61 X10^3/ul (4.0); Lymphocyte % 7.2 % (19-41); Mean Corp Hgb Conc 32.1 g/dL (32-36); Mean Corpuscular Hgb 33.9 pg (27.0-32.0); Mean Corpuscular Volume 105.4 fL (81-99); Mean Platelet Vol. 9.7 fl (6.2-12.0); Monocyte# 0.51 X10^3/uL; NRBC Flagged by Analyzer 0 % (0-5); Neutrophil # 6.96 X10^3/uL (2.7-7.7); Neutrophil % 82.5 % (47-70); Platelet Count 183 K/mm3 (150-450); RBC Distribution Width CV 13.2 % (11.6-14.6); RBC Distribution Width SD 51.3 fl (35.1-43.9); Red Blood Count 3.87 M/mm3 (4.2-5.4); White Blood Count 8.4 K/mm3 (4.4-11.0)
[2020-01-14] MEDS: Phenytoin Na 100 MG Capsule PO (09:20)
[2020-01-14] MEDS: Methimazole 5 MG Tablet 2.5 MG PO (09:21)
[2020-01-14] MEDS: Lisinopril 40 MG Tablet PO (09:21)
[2020-01-14] MEDS: guaiFENesin 1,200 MG Tablet 1200 MG PO (09:21)
[2020-01-14] MEDS: cloNIDine HCl 0.2 MG Tablet PO (09:21)
[2020-01-14] MEDS: Metoprolol(XL)Succ 100 MG Tablet PO (09:22)
[2020-01-14] MEDS: amLODIPine 10 MG Tablet PO (09:22)
--- NOTE | 2020-01-14 14:54 | DCINST_ITS ---
- Discharge Diagnoses Current Active Problems: Current Active and Chronic Problems (Last Reviewed 01/12/20 @ 03:[address] Grant Lennon MD) COPD with exacerbation (Chronic) COPD with acute exacerbation (Chronic) You will use the following diet at home:: Cardiac Your food should be the consistency of: Regular Your liquids should be the consistency of: Regular/Thin Discharge Activity: Return to Normal Activity Weight Bearing Status: Weight bearing as tolerated Call your doctor if you observe: Fever of 101 or Higher, Shortness of breath, Swelling in the ankles Instructions: Care for COPD, COPD: Using Inhalers, Treatments for COPD Additional Instructions: counseled to quit smoking. Allergies/Adverse Reactions: Allergies Penicillins Allergy (Severe, Verified 12/04/19 13:42) hives Medications to take at Discharge oxygen-air delivery systems See Rx Instructions .ROUTE .MEDSUPPLY #1 03/26/19 albuterol sulfate 90 mcg/actuation aerosol inhaler 2 puff INHALATION Q4H PRN 90 Days #25.5 g 06/04/19 amlodipine 10 mg tablet 10 mg PO DAILY #90 tab 06/04/19 budesonide-formoterol HFA 160 mcg-4.5 mcg/actuation aerosol inhaler 2 puff INHALATION BID #30.6 g 06/04/19 calcium carbonate 600 mg (1,500 mg)-vitamin D3 500 unit capsule 1 cap PO BID #180 cap 06/04/19 docusate sodium 100 mg capsule 100 mg PO BID PRN 06/04/19 fluticasone furoate 100 mcg-vilanterol 25 mcg/dose inhalation powder 1 inh INHALATION DAILY 90 Days #90 ea 06/04/19 ipratropium 0.5 mg-albuterol 3 mg (2.5 mg base)/3 mL nebulization soln 3 ml INHALATION Q4H PRN #180 ml 06/04/19 lisinopril 40 mg tablet 40 mg PO DAILY #90 tab 06/04/19 methimazole 5 mg tablet 2.5 mg PO DAILY #45 tab 06/04/19 metoprolol succinate 100 mg tablet,extended release 24 hr 100 mg PO DAILY #90 tab 06/04/19 phenytoin sodium extended 100 mg capsule 100 mg PO BID #180 cap 06/04/19 rosuvastatin 10 mg tablet 10 mg PO DAILY #90 tab 06/04/19 trazodone 100 mg tablet 100 mg PO QHS #90 tab 06/04/19 clonidine HCl 0.2 mg tablet 0.2 mg PO BID #180 tab 08/20/19 nicotine 14 mg/24 hr daily transdermal patch 1 patch TRANSDERMAL DAILY #28 ea 10/01/19 levoFLOXacin tablet [Levaquin tablet] 500 mg PO DAILY #3 tab 01/14/20 The following prescriptions were given: levoFLOXacin tablet [Levaquin tablet] 500 mg PO DAILY #3 tab Transmission Status: Pending to [facility]/pharmacy #[id number] Primary Care Physician: Mariangel Kulkarni NP-C [Primary Care Provider] - Please follow up with your Primary Care Physician in: 1-2 weeks Test Results: Test results from this visit will be discussed in further detail at your follow- up appointment, if applicable. Please Follow Up With: Best Levy MD When: 1-2 weeks Proposed Discharge Date: 01/14/20
--- NOTE | 2020-01-14 14:58 | DS.PCM_ITS ---
Discharge Date and Diagnosis Date of Admission: 01/12/20 Date of Discharge: 01/14/20 - Primary Discharge Diagnosis Acute Problems: acute COPD exacerbation acute on chronic hypoxic respiratory failure - Secondary Discharge Diagnosis Chronic Problems: Chronic Problems (Last Reviewed 01/12/20 @ 03:[address] Grant Lennon MD) COPD with exacerbation (Chronic) COPD with acute exacerbation (Chronic) Sleep apnea in adult (Chronic) HTN (hypertension) (Chronic) COPD (chronic obstructive pulmonary disease) with acute bronchitis (Chronic) Hospital Course and Treatment Imaging Results: Diagnostic Data Chest CTA 01/12/20 00:44 IMPRESSION: No demonstrated pulmonary embolism or arterial dissection. Ill-defined subpleural groundglass opacities are seen in the lung apices, may represent atypical pneumonia or viral pneumonia (COVID-19 ?). Electronically Signed: Antonio Minerva, at 2:01 EDT Tel , Service support , Operations: None Procedures: None Summary of Care Provided: The patient is a 79 year old F with an extensive past medical history as outlined which include COPD and sleep apnea as well as hypertension. She was admitted through the ED on 01/12/2020 with a complaint of progressively worsening shortness of breath for 2 days prior to admission. Shortness of breath was worsened by exertion and she had production of dark copious sputum. She also had wheezes. Her baseline oxygen of 2 to 3 L at home at increased about 4 L. Her breathing treatments also did not help. She was saturating at 77% when the paramedics arrived at her home. She was put on breathing treatments and IV Solu-Medrol and admitted and managed for acute on chronic hypoxic respiratory failure due to COPD exacerbation. COVID-19 test done was negative. She was put on BiPAP initially and transitioned to oxygen later. She was also started on IV levofloxacin and also put on IV Solu-Medrol. Shortness of breath gradually improved. Respiratory panel was also negative. CTA of the chest done showed no PE or arterial dissection but showed an ill-defined subpleural groundglass opacity seen in the lung apices. Shortness of breath gradually improved and she was weaned down to her baseline 3 L of oxygen. Patient also was reviewed by physical therapy and did well. She was skilled as not needing any home physical therapy needs. She was discharged home on 01/14/2020 on her baseline 3 L of oxygen and was discharged with a Medrol Dosepak. She was also discharged on p.o. levofloxacin 500 mg daily x3 days. She was counseled to quit smoking and to be compliant with her breathing treatments and inhalers. She is to follow-up with her primary care doctor and grape pruner in 1 to 2 weeks. Patient seen and examined prior to discharge. He was at her baseline and had no complaints. Wheezing had improved and shortness of breath was at baseline. She was on 3 L of oxygen. Review of systems otherwise negative. Labs and vitals reviewed. Home medication reviewed and reconciled. O/E: Vital Signs Temp Pulse Resp BP Pulse Ox 97.8 F 83 22 H 156/87 H 96 01/14/20 14:55 01/14/20 14:55 01/14/20 14:55 01/14/20 14:55 01/14/20 14:55 [] General: Alert, Oriented x3, Cooperative, No apparent distress HEENT: Atraumatic, PERRLA, EOMI, Normocephalic Oral: Dry Mucosa Neck: Supple, No JVD, Negative Carotid Bruits Lungs: - - diminished breath sounds bibasally, no wheezing. on 2L of oxygen. Cardiovascular: Regular rate, Regular Rhythm, Normal S1, Normal S2, No murmurs Abdomen: Bowel Sounds Present, Soft, Non Tender Extremities: No clubbing, No cyanosis, No edema, Capillary Refill Less than 3 Seconds Skin: No rashes, No breakdown Musculoskeletal: No Tenderness to Palpation of Joints or Extremities Lymphatic: No Cervical, Supraclavicular, or Inguinal Adenopathy Neurological: Cranial nerves II-XII grossly intact, Neuro grossly intact, Motor Exam 5/5 strength throughout Psych/Mental Status: Normal Affect, Appropriate, Alert and oriented to time, place, person, mood and affect Plan is for discharge home today. - Physical Exam Vitals/I&O's: Vital Signs Temp Pulse Resp BP Pulse Ox 97.6 F L 69 16 170/88 H 96 01/14/20 09:12 01/14/20 11:31 01/14/20 11:31 01/14/20 09:12 01/14/20 11:31 Oxygen Flow Rate (L/min) 3 Oxygen Delivery Method Nasal Cannula Weight: 117 lb 8.102 oz Body Mass Index (BMI) 21.4 Intake and Output for Last 24 Hours 01/12/20 01/13/20 01/14/20 23:59 23:59 23:59 Intake Total 2490 / 2490 1260 / 1260 640 / 640 Output Total 325 / 325 Balance 2165 / 2165 1260 / 1260 640 / 640 Microbiology Past 72 Hours 01/12/20 02:45 Blood Culture (Wb) #2 - Left Forearm Blood Culture - Preliminary No growth in 48 hours. 01/11/20 23:45 Blood Culture (Wb) - Anticubital Left Blood Culture - Preliminary No growth in 48 hours. 01/11/20 23:50 Mucosa - Nasopharyngeal Respiratory Panel (PCR) - Final Laboratory Results 01/14/20 05:46: WBC 8.4, RBC 3.87 L, Hgb 13.1, Hct 40.8, MCV 105.4 H, MCH 33.9 H , MCHC 32.1, RDW Std Deviation 51.3 H, RDW Coeff of Avelino 13.2, Plt Count 183, MPV 9.7, Immature Gran % (Auto) 3.800 H, Neut % (Auto) 82.5 H, Lymph % (Auto) 7.2 L , [place] % (Auto) 6.0, Eos % (Auto) 0.0, Baso % (Auto) 0.5, Absolute Neuts (auto) 7.0, Absolute Lymphs (auto) 0.61 L, Nucleated RBC % 0 01/14/20 05:46: Sodium 140, Potassium 4.3, Chloride 108 H, Carbon Dioxide 29.0, Anion Gap 3 L, BUN 36 H, Creatinine 1.29 H, Estim Creat Clear Calc 28.89, Est GFR (MDRD) Af Amer 51 L, Est GFR (MDRD) Non-Af 43 L, BUN/Creatinine Ratio 27.9 H , Glucose 168 H, Calcium 8.0 L Current Medications Acetaminophen (Tylenol) 650 mg PO Q6H PRN PRN PRN Reason: Pain Score 1-10/Temp > 100.7 F Albuterol Sulfate (Ventolin Aerosols) 2.5 mg INHALATION Q2H PRN PRN PRN Reason: Shortness of Breath/Wheezing Last Admin: 01/12/20 05:09 Dose: 2.5 mg Documented by: Albuterol/Ipratropium (Duoneb) 3 ml INHALATION Q4HWA.RT [facility] Last Admin: 01/14/20 11:31 Dose: 3 ml Documented by: Amlodipine Besylate (Norvasc) 10 mg PO DAILY [facility] Last Admin: 01/14/20 09:22 Dose: 10 mg Documented by: Atorvastatin Calcium (Lipitor) 20 mg PO DAILY@2200 [facility] Last Admin: 01/13/20 22:06 Dose: 20 mg Documented by: Clonidine (Catapres) 0.2 mg PO BID [facility] Last Admin: 01/14/20 09:21 Dose: 0.2 mg Documented by: Docusate Sodium (Colace) 100 mg PO BID PRN PRN PRN Reason: Constipation Enoxaparin Sodium (Lovenox) 30 mg SC DAILY [facility] Last Admin: 01/14/20 09:23 Dose: Not Given Documented by: Guaifenesin (Mucinex) 1,200 mg PO BID [facility] Last Admin: 01/14/20 09:21 Dose: 1,200 mg Documented by: Levofloxacin (Levaquin Iv) 750 mg in 150 mls @ 100 mls/hr IV Q48@2200 [facility] Sodium Chloride () 250 mls @ 15 mls/hr IV .[id number] PRN PRN Reason: Saline Flush Sodium Chloride () 250 mls @ 15 mls/hr IV .[id number] PRN PRN Reason: Additional IVPB Infusion Lisinopril (Zestril) 40 mg PO DAILY [facility] Last Admin: 01/14/20 09:21 Dose: 40 mg Documented by: Melatonin (Melatonin) 3 mg PO QHS PRN PRN PRN Reason: INSOMNIA Methimazole (Tapazole) 2.5 mg PO DAILY [facility] Last Admin: 01/14/20 09:21 Dose: 2.5 mg Documented by: Methylprednisolone (Solu-Medrol) 40 mg IV Q8 [facility] Last Admin: 01/14/20 05:55 Dose: 40 mg Documented by: Metoprolol Succinate (Toprol Xl (Beta Raffy)) 100 mg PO DAILY [facility] Last Admin: 01/14/20 09:22 Dose: 100 mg Documented by: Nicotine (Nicoderm Cq (Pbkc)) 21 mg TRANSDERM. DAILY [facility] Last Admin: 01/14/20 09:21 Dose: 21 mg Documented by: Ondansetron HCl (Zofran) 4 mg IV Q8H PRN PRN PRN Reason: Nausea [facility]) [facility] Last Admin: 01/14/20 09:20 Dose: 100 mg Documented by: Sodium Chloride () 10 - 40 ml IV UD PRN PRN Reason: SALINE FLUSH Last Admin: 01/14/20 05:55 Dose: 10 ml Documented by: Trazodone HCl (Desyrel) 100 mg PO QHS [facility] Last Admin: 01/13/20 22:07 Dose: 100 mg Documented by: Discharge Diet: Low fat/ Low Cholesterol Discharge Activity: Return to Normal Activity Weight Bearing Status: Weight bearing as tolerated Call your doctor if you observe: Fever of 101 or Higher, Shortness of breath, Swelling in the ankles Home Medications: Medications to take at Discharge oxygen-air delivery systems See Rx Instructions .ROUTE .MEDSUPPLY #1 03/26/19 albuterol sulfate 90 mcg/actuation aerosol inhaler 2 puff INHALATION Q4H PRN 90 Days #25.5 g 06/04/19 amlodipine 10 mg tablet 10 mg PO DAILY #90 tab 06/04/19 budesonide-formoterol HFA 160 mcg-4.5 mcg/actuation aerosol inhaler 2 puff INHALATION BID #30.6 g 06/04/19 calcium carbonate 600 mg (1,500 mg)-vitamin D3 500 unit capsule 1 cap PO BID #180 cap 06/04/19 docusate sodium 100 mg capsule 100 mg PO BID PRN 06/04/19 fluticasone furoate 100 mcg-vilanterol 25 mcg/dose inhalation powder 1 inh INHALATION DAILY 90 Days #90 ea 06/04/19 ipratropium 0.5 mg-albuterol 3 mg (2.5 mg base)/3 mL nebulization soln 3 ml INHALATION Q4H PRN #180 ml 06/04/19 lisinopril 40 mg tablet 40 mg PO DAILY #90 tab 06/04/19 methimazole 5 mg tablet 2.5 mg PO DAILY #45 tab 06/04/19 metoprolol succinate 100 mg tablet,extended release 24 hr 100 mg PO DAILY #90 tab 06/04/19 phenytoin sodium extended 100 mg capsule 100 mg PO BID #180 cap 06/04/19 rosuvastatin 10 mg tablet 10 mg PO DAILY #90 tab 06/04/19 trazodone 100 mg tablet 100 mg PO QHS #90 tab 06/04/19 clonidine HCl 0.2 mg tablet 0.2 mg PO BID #180 tab 08/20/19 nicotine 14 mg/24 hr daily transdermal patch 1 patch TRANSDERMAL DAILY #28 ea 10/01/19 levoFLOXacin tablet [Levaquin tablet] 500 mg PO DAILY #3 tab 01/14/20 Following Prescriptions Were Given to Patient: levoFLOXacin tablet [Levaquin tablet] 500 mg PO DAILY #3 tab Transmission Status: Received by [facility]/pharmacy #[id number] Primary Care Physician: Mariangel Kulkarni NP-C [Primary Care Provider] - Please follow up with your Primary Care Physician in: 1-2 weeks Please Follow Up With: Best Levy MD When: 1-2 weeks Patient Instructions: Care for COPD, COPD: Using Inhalers, Treatments for COPD Disposition: Home Minutes spent on discharge:: 40 Patient Condition:: Stable Medical Necessity - Tobacco Use Smoking Status: Current every day smoker Tobacco Use: Cigarettes Meaningful Use Info Meaningful Use Diagnoses (Choose all that apply): None applicable Inpatient E&M: 86235 Disch Hosp
--- NOTE | 2020-01-14 15:21 | CASEMGMT ---
Pt has been on her 3liters nc which is her home oxygen order. Pt has been up independent in room and states no concerns with going home at this time. SStted SOLIS CM
--- NOTE | 2020-01-14 16:03 | CASEMGMT ---
Pt needs an oxygen tank to go home, but does not have any. She cannot remember the name of the company that provides the O2. SW called [employer], they are not pt's O2 provider. SW spoke w/pt in room. She states her brother has tanks and her daughter can get a tank from her brother's home and bring it here for her. She will ask her daughter and states her daughter will do this. No further needs anticipated at this time. ROMEL Reid
== END 2020-01-14 19:06 | disposition home or self-care (01) | DRG 190 ==
LOC: ED 01-12 02:55 → ICU 01-12 04:29 → PCU 01-12 19:29 → ICU 01-13 11:24 → PCU 01-13 11:24
PROVIDERS: Admitting Provider Hospitalist; Emergency Provider Emergency Medicine; PCP Nurse Practitioner; Visit Provider Student in an Organized Health Care Education/Training Program
DX: J44.1 Chronic obstructive pulmonary disease with (acute) exacerbation (principal); J96.21 Acute and chronic respiratory failure with hypoxia; J44.0 Chronic obstructive pulmonary disease with (acute) lower respiratory infection; G47.30 Sleep apnea, unspecified; I12.9 Hypertensive chronic kidney disease with stage 1 through stage 4 chronic kidney disease, or unspecified chronic kidney disease; N18.3 Chronic kidney disease, stage 3 (moderate); E78.5 Hyperlipidemia, unspecified; F17.210 Nicotine dependence, cigarettes, uncomplicated; Z85.41 Personal history of malignant neoplasm of cervix uteri; E87.6 Hypokalemia; G40.909 Epilepsy, unspecified, not intractable, without status epilepticus; Z90.710 Acquired absence of both cervix and uterus; Z80.3 Family history of malignant neoplasm of breast; Z85.038 Personal history of other malignant neoplasm of large intestine; Z85.068 Personal history of other malignant neoplasm of small intestine; Z90.49 Acquired absence of other specified parts of digestive tract
CPT/HCPCS: 36415; 36600; 71275; 80048; 82803; 83605; 84100; 84484; 85025; 85379; 87040; 87633; 87635; 93005; 94002; 94640; 94799; 97161; 99251; 99285; 99406; J7030; Q9967; A4216; G0463; U0003

== ENCOUNTER → 2020-06-05 22:10 | Outpatient (CLI) | payer MEDICARE, SELFPAY ==
[2020-06-05 19:15] VITALS: BMI 22.1
[2020-06-05 22:20] LABS: Absolute Lymphocyte Count 0.97 X10^3/uL (0.83-4.51); Absolute Neutrophil Count 3.9 X10^3/uL (2.0-7.7); Basophil# 0.07 X10^3/uL; Basophil% 1.2 % (0-1); Eosinophil# 0.17 X10^3/uL; Hematocrit 40.5 % (37-47); Hemoglobin 12.8 g/dL (12.0-15.0); Lymphocyte # 0.97 X10^3/ul (4.0); Lymphocyte % 17.1 % (19-41); Mean Corp Hgb Conc 31.6 g/dL (32-36); Mean Corpuscular Hgb 33.2 pg (27.0-32.0); Mean Corpuscular Volume 104.9 fL (81-99); Mean Platelet Vol. 9.9 fl (6.2-12.0); Monocyte# 0.52 X10^3/uL; Monocyte% 9.2 % (0-10); NRBC Flagged by Analyzer 0 % (0-5); Neutrophil # 3.91 X10^3/uL (2.7-7.7); Platelet Count 174 K/mm3 (150-450); RBC Distribution Width CV 13.5 % (11.6-14.6); RBC Distribution Width SD 53.1 fl (35.1-43.9); Red Blood Count 3.86 M/mm3 (4.2-5.4); White Blood Count 5.7 K/mm3 (4.4-11.0)
[2020-06-05 22:40] LABS: AST(SGOT) 14 U/L (15-37); Alanine Aminotransfer ALT/SGPT 23 U/L (13-56); Albumin, Serum 3.7 g/dL (3.2-5.0); Alkaline Phosphatase 132 U/L (45-117); Amylase 111 U/L (25-115); Anion Gap 3 (5-15); BUN 32 mg/dL (7-18); BUN/Creat Ratio 15.4 RATIO (10-20); CRP 6.57 mg/L (0.0-3.0); Calcium,Total 8.5 mg/dL (8.5-10.1); Chloride 108 mmol/L (98-107); Creatinine, Serum 2.08 mg/dL (0.55-1.02); EST Glomerular Filtration Rate 25 mL/min (>60); Est Glom Filt Rate - Afr Amer 30 mL/min (>60); Globulin 3.8 g/dL (2.2-4.2); Glucose 106 mg/dL (74-106); Potassium 4.6 mmol/L (3.5-5.1); Protein, Total 7.5 g/dL (6.4-8.2); Sodium Level 140 mmol/L (136-145)
[2020-06-09 16:09] LABS: Endomysial Antibody IgA Negative (Negative)
[2020-06-09 17:55] LABS: Deamidated Gliadin IgA 1 units (0-19); Deamidated Gliadin IgG 3 units (0-19); Immunoglobulin A 52 mg/dL (64-422); t-Transglutaminase IgA <2 U/mL (0-3)
== END ==
PROVIDERS: PCP Nurse Practitioner; Referring Provider Nurse Practitioner; Visit Provider Nurse Practitioner
DX: R19.7 Diarrhea, unspecified (principal); R10.9 Unspecified abdominal pain; K21.9 Gastro-esophageal reflux disease without esophagitis; G47.62 Sleep related leg cramps
CPT/HCPCS: 80053; 82150; 82784; 83516; 85025; 86140; 86255

== ENCOUNTER → 2020-08-14 22:13 | Outpatient (CLI) | payer MEDICARE, SELFPAY ==
[2020-08-14 18:08] VITALS: BMI 21.9
[2020-08-14 22:37] LABS: Absolute Lymphocyte Count 0.63 X10^3/uL (0.83-4.51); Basophil# 0.05 X10^3/uL; Basophil% 1.1 % (0-1); Eosinophil# 0.36 X10^3/uL; Eosinophils% 7.9 % (0-5); Hematocrit 38.6 % (37-47); Hemoglobin 12.5 g/dL (12.0-15.0); Lymphocyte # 0.63 X10^3/ul (4.0); Lymphocyte % 13.9 % (19-41); Mean Corp Hgb Conc 32.4 g/dL (32-36); Mean Corpuscular Hgb 33.2 pg (27.0-32.0); Mean Corpuscular Volume 102.4 fL (81-99); Mean Platelet Vol. 9.8 fl (6.2-12.0); Monocyte# 0.43 X10^3/uL; Monocyte% 9.5 % (0-10); NRBC Flagged by Analyzer 0 % (0-5); Neutrophil # 3.03 X10^3/uL (2.7-7.7); Neutrophil % 66.9 % (47-70); Platelet Count 198 K/mm3 (150-450); RBC Distribution Width CV 13.2 % (11.6-14.6); RBC Distribution Width SD 49.2 fl (35.1-43.9); Red Blood Count 3.77 M/mm3 (4.2-5.4); White Blood Count 4.5 K/mm3 (4.4-11.0)
[2020-08-14 22:55] LABS: D-Dimer Quantitative (DVT/PE) 1.32 FEU/ug/m (0.27-0.49)
[2020-08-14 23:00] LABS: ALB/GLOB Ratio 0.8 RATIO (0.9-2.4); AST(SGOT) 14 U/L (15-37); Alanine Aminotransfer ALT/SGPT 19 U/L (13-56); Albumin, Serum 3.3 g/dL (3.2-5.0); Alkaline Phosphatase 141 U/L (45-117); Amylase 71 U/L (25-115); Anion Gap 6 (5-15); BUN 20 mg/dL (7-18); BUN/Creat Ratio 9.5 RATIO (10-20); Calcium,Total 8.3 mg/dL (8.5-10.1); Chloride 104 mmol/L (98-107); Cholesterol 171 mg/dL (200); Creatinine, Serum 2.11 mg/dL (0.55-1.02); EST Glomerular Filtration Rate 24 mL/min (>60); Est Glom Filt Rate - Afr Amer 29 mL/min (>60); Glucose 119 mg/dL (74-106); High Density Lipoprotein 71 mg/dL; Lipase 87 U/L (73-393); Potassium 3.6 mmol/L (3.5-5.1); Protein, Total 7.3 g/dL (6.4-8.2); Sodium Level 140 mmol/L (136-145); Triglycerides 134 mg/dL; Very Low Density Lipoprotein 27 mg/dL (5-40)
== END ==
PROVIDERS: PCP Nurse Practitioner; Visit Provider Nurse Practitioner
DX: I10 Essential (primary) hypertension (principal); M54.9 Dorsalgia, unspecified; R10.9 Unspecified abdominal pain
CPT/HCPCS: 80053; 80061; 82150; 83690; 85025; 85379; 86141

== ENCOUNTER → 2020-08-26 12:36 | Outpatient (CLI) | payer MEDICARE, SELFPAY ==
[2020-08-14 18:08] VITALS: BMI 21.9
[2020-08-26 13:08] VITALS: PULSE 75; PULSE 76; PULSE 78; O2SAT 87; O2SAT 88; O2SAT 94
--- NOTE | 2020-08-26 13:16 | CPS ---
Addendum entered and electronically signed by Annia Fernández RRT 08/26/20 13:32: I CALLED AND SPOKE WITH KEVIN. SHE IS AWARE OF PT'S RESPIRATORY STATUS WELL RESULTS OF 6MIN WALK. PT AWAITING APPT WITH DR. SANTOS, Original Note: PATIENT ARRIVED ON OWN HOME OXYGEN AT 4LPM DEMAND FLOW. PLACED ON RA PRIOR TO TEST, SPO2 87%. O2 PLACED AT 2LPM TO START WALK TEST. PT PUSHED W/C FOR STABILITY, PT VERY UNSTEADY, AMBULATED WITH SHORT PAUSES 25 FT, SPO2 AT 88%. PT EXTREMELY DYSPNEIC, REQUESTING TO REST. SHE DECLINED TO WALK ANY FURTHER, O2 PLACED AT 4LPM PER HOME, PT DC'D AT END OF 6 MIN, RESPIRATORY STATUS RETURNED TO PT BASELINE.
--- NOTE | 2020-08-27 10:45 | WT_ITS ---
PSN 6 Minute Walk Test - 6 Minute Walk Test 6 Minute Walk Test: 6 Minute Walk Test PSN:6-Minute Walk Test Start: 08/26/20 13:08 Freq: Status: Active Protocol: [id number] Document 08/26/20 13:08 [facility] (Rec: 08/26/20 13:20 [facility] [id number]) 6 Minute Walk Test Date Performed 08/26/20 Time Performed 12:30 Height 5 ft 2 in Weight: 120 lb Weight in Pounds 120.[address]: Mariangel Kulkarni ENVIRONMENTAL CONTROL ADMINISTRATOR Assistive device used: Walker Pre-test Oxygen Delivery Method Room Air Pulse Ox (%) 87 Pulse Rate (60-100 beats/min) 75 Dyspnea Hawk Scale (0-10) 3 Reported Symptoms Increased Work of Breathing 1st minute Oxygen Flow Rate (L/min) (L/min) 2 Oxygen Delivery Method Nasal Cannula Pulse Ox (%) 88 Pulse Rate (60-100 beats/min) 78 Dyspnea Hawk Scale (0-10) 8 Number of Rests Taken 1 Reported Symptoms Increased Work of Breathing 2nd minute Oxygen Flow Rate (L/min) (L/min) 4 Oxygen Delivery Method Nasal Cannula Number of Rests Taken 1 Reported Symptoms Increased Work of Breathing 3rd minute Oxygen Flow Rate (L/min) (L/min) 4 Oxygen Delivery Method Nasal Cannula Number of Rests Taken 1 Reported Symptoms Increased Work of Breathing 4th minute Oxygen Flow Rate (L/min) (L/min) 4 Oxygen Delivery Method Nasal Cannula Number of Rests Taken 1 Reported Symptoms Increased Work of Breathing 5th minute Oxygen Flow Rate (L/min) (L/min) 4 Oxygen Delivery Method Nasal Cannula Number of Rests Taken 1 Reported Symptoms Increased Work of Breathing 6th minute Oxygen Flow Rate (L/min) (L/min) 4 Oxygen Delivery Method Nasal Cannula Number of Rests Taken 1 Reported Symptoms Increased Work of Breathing Post-test Oxygen Flow Rate (L/min) (L/min) 4 Oxygen Delivery Method Nasal Cannula Pulse Ox (%) 94 Pulse Rate (60-100 beats/min) 76 Dyspnea Hawk Scale (0-10) 4 Reported Symptoms Increased Work of Breathing Full Laps Walked 0 Partial Lap, Number of Tiles Walked 25 Total Distance Walked (ft) 25 08/26/20 13:16 Cardiopulmonary Services by Annia Fernández Addendum entered and electronically signed by Annia Fernández RRT 08/26/20 13:32: I CALLED AND SPOKE WITH ENVIRONMENTAL CONTROL ADMINISTRATOR.ZONIA. SHE IS AWARE OF PT'S RESPIRATORY STATUS WELL RESULTS OF 6MIN WALK. PT AWAITING APPT WITH DR. SANTOS, Original Note: PATIENT ARRIVED ON OWN HOME OXYGEN AT 4LPM DEMAND FLOW. PLACED ON RA PRIOR TO TEST, SPO2 87%. O2 PLACED AT 2LPM TO START WALK TEST. PT PUSHED W/C FOR STABILITY, PT VERY UNSTEADY, AMBULATED WITH SHORT PAUSES 25 FT, SPO2 AT 88%. PT EXTREMELY DYSPNEIC, REQUESTING TO REST. SHE DECLINED TO WALK ANY FURTHER, O2 PLACED AT 4LPM PER HOME, PT DC'D AT END OF 6 MIN, RESPIRATORY STATUS RETURNED TO PT BASELINE. Initialized on 08/26/20 13:16 - END OF NOTE - Interpretation Interpretation: The patient ambulated 25 feet over the course of 6 minutes beginning on room air with the use of a wheelchair. Pretesting oxygen saturation was noted to be 87% on room air. The patient was subsequently placed on 2 L/min to begin testing. The patient was very unsteady with ambulation. The patient was only able to ambulate for approximately 1 minute prior to becoming so dyspneic that she needed to rest the remainder of the test. The patient did desaturate to 88% and was subsequently placed back on her demand flow 4 L/min of oxygen. - Recommendations Recommendations: Suboptimal test. The patient was unable to ambulate greater than 1 minute. I would recommend for now that the patient be continued on 4 L/min demand flow oxygen at all times.
== END ==
LOC: PSN 12:39
PROVIDERS: PCP Nurse Practitioner; Referring Provider Nurse Practitioner; Visit Provider Nurse Practitioner
DX: R06.2 Wheezing (principal); J44.1 Chronic obstructive pulmonary disease with (acute) exacerbation
CPT/HCPCS: 94618

== ENCOUNTER 2020-09-13 21:01 | Inpatient (IN) | payer MEDICARE, SELFPAY ==
[2020-09-10 17:26] VITALS: BMI 21.5
[2020-09-13] VITALS (7 sets, daily range): BP systolic 79–105; BP diastolic 56–82; PULSE 84–87; RESP 19–24; TEMP 36.2; O2SAT 88–100; BMI 22.1; BMI 22.2
--- NOTE | 2020-09-13 20:57 | ECHOCS_ITS ---
Reason For Study: NSTEMI Procedure This was a 2D Doppler, Color Flow transthoracic echocardiogram. The study was technically difficult. Contrast injection was performed. Exam performed portable in ICU/CCU. Left Ventricle Normal left ventricle. The 3D full volume ejection fraction is EF 50-55% %. Right Ventricle Mildly dilated right ventricle. Mild to moderate global right ventricular systolic dysfunction. Atria Normal left atrium. Normal right atrium. Intact atrial septum. Mitral Valve The mitral valve is structurally normal. No prolapse or stenosis seen. No mitral valve insufficiency. Tricuspid Valve Normal tricuspid valve. Unable to estimate RV systolic pressure due to insufficient tricuspid regurgitant envelope. Aortic Valve Normal aortic valve. Pulmonic Valve The pulmonic valve is not well visualized. Great Vessels Normal aortic root. Pericardium/Pleural No pericardial effusion. Medication Diluted definity 3ml given slow IV push to enhance endocardial definition. MMode/2D Measurements & Calculations LVIDd: 4.6 cm IVSd: 0.89 cm LA dimension: 2.8 cm LVPWd: 0.92 cm LAV(MOD-bp): 29.3 ml LA A4 area: 11.9 cm2 RA A4 area: 12.1 cm2 LAV(MOD-bp) Indexed: 19.4 ml/m2 LAV(MOD-sp2): 30.2 ml LAV(MOD-sp4): 26.6 ml Time Measurements MV dec time: 0.19 sec Doppler Measurements & Calculations MV E max darion: 85.1 cm/sec Lat Peak E' Darion: 8.0 cm/sec Med Peak E' Darion: 6.5 cm/sec MV A max darion: 97.9 cm/sec E/E' lat: 10.6 E/E' med: 13.1 MV E/A: 0.87 MV V2 max: 124.2 cm/sec MV P1/2t max darion: 105.9 cm/sec Ao V2 max: 93.2 cm/sec MV max P.2 mmHg MV P1/2t: 80.8 msec Ao max P.5 mmHg MV V2 mean: 72.9 cm/sec MV dec slope: 384.0 cm/sec2 MV mean P.5 mmHg MV V2 VTI: 24.3 cm MVA(P1/2t): 2.7 cm2 LV V1 max: 77.8 cm/sec PA V2 max: 91.2 cm/sec LV V1 max P.4 mmHg ECHO/Echo Complete W/ Contrast Interpretation Summary Preserved LV systolic function EF 50-55% Ordering Physician: Precious Osorio Referring Physician: Mariangel Kulkarni Performed By: Nicolás Pickens RCS
[2020-09-13] MEDS: 0.9% Normal Saline 1,000 ML 100 ML IV (22:17)
[2020-09-13] MEDS: Phenytoin Na 100 MG Capsule PO (23:03)
[2020-09-13] MEDS: Atorvastatin Calcium 20 MG Tablet PO (23:04)
--- NOTE | 2020-09-13 23:17 | HP.PCM_ITS ---
Problem List (1) Acute respiratory failure Status: Acute Qualifiers: Respiratory failure complication: hypoxia and hypercapnia Qualified Code(s): J96.01 - Acute respiratory failure with hypoxia; J96.02 - Acute respiratory failure with hypercapnia (2) COPD exacerbation Status: Acute (3) Hypotensive episode Status: Acute (4) NSTEMI (non-ST elevated myocardial infarction) Status: Acute (5) Colon cancer Status: Chronic Qualifiers: Colon location: unspecified part of colon Qualified Code(s): C18.9 - Malignant neoplasm of colon, unspecified (6) GERD (gastroesophageal reflux disease) Status: Chronic Qualifiers: Esophagitis presence: esophagitis presence not specified Qualified Code(s): K21.9 - Gastro-esophageal reflux disease without esophagitis (7) Sleep apnea in adult Status: Chronic (8) HTN (hypertension) Status: Chronic Qualifiers: Hypertension type: essential hypertension Qualified Code(s): I10 - Essential (primary) hypertension History of Present Illness Date of Admission: 09/13/20 Chief Complaint: Dyspnea The patient is a 80 y/o F w/ PMHx: Chronic COPD w/ Chronic Hypoxic Respiratory Failure (2L NC), Seizure disorder, HTN, HLD, GERD, Hx cervical s/p RADHA and colon CA s/p bowel resection, Tobacco use, Graves disease who presents to the [facility] ED as direct admission on 09/13/20 with history of worsening dyspnea over the last 1 to 2 days with significantly initial altered mental status with worsened wheezing, found by family with initially difficulty arousing and concern for pinpoint pupils noted to be on clonidine with potential double dose with EMS administration of Narcan prompting transition to the ED for evaluation. Patient per EMS was noted to initially be 54% oxygenation in the field placed on a CPAP and eventually in the ED at outside facility transition to 40% Ventimask once clinically improved and was refusing further CPAP usage. Patient administered aerosols as well as Solu-Medrol per EMS and improved upon ED evaluation and following treatment. ED physician outside facility noted mental status significantly improved and patient was completely oriented and able to make medical decisions. Patient declined any BiPAP consideration or any aggressive interventions including pressor therapy. Outside physician ED discussed with this patient the risks of using peripheral IVs with pressor therapy while completely oriented per his report and patient still declined placement of a central line. Work-up in the [facility] ED [place] included: VS: Initially T 36.8, BP 105/21, HR 102, RR 24, 100% on CPAP-->current 89/77 BP, HR 82, RR 17, 40% VM 93%. CBC: WBC 6, Hgb 12.2, Plts 192 without marked shift. LA: 1.8. CMP: Na 144, K 4.4, BUN/Cr 24/2.12 (baseline 2-2.1), glucose 164, hepatic profile unremarkable Trop: 126 (high sensitivity > 12)-->145 EKG: SR without acute evidence of ischemia. CXR: No acute cardiopulmonary findings. AB:06 pH 7.25, pCO2 63, pO2 68. COVID: Negative (PCR). D-dimer: requested prior to transfer (last 1.08/14/20 with renal function 11/07.) BNP: 462 Bld Cx x 2 pending per ED. Pending álvarez placement with UA. Medications given: Levophed recently bumped up, 30 cc/kg bolus NS, Levaquin 500 mg, Solumedrol 125 mg per EMS, duoneb x 1 per EMS, albuterol x 2 per [place] ED. Discussed w/ ED physician and requested patient be administered ASA 324 mg po x 1 in addition to therapeutic lovenox and that a d-dimer be obtained. Past Medical History Past Medical History (Chronic Problems): Chronic Problems (Last Reviewed 08/14/20 @ 21:02 by Mariangel Kulkarni NP, MATERIAL HANDLING WAREHOUSE SUPERVISOR-C) Colon cancer (Chronic) GERD (gastroesophageal reflux disease) (Chronic) COPD with exacerbation (Chronic) COPD with acute exacerbation (Chronic) Sleep apnea in adult (Chronic) HTN (hypertension) (Chronic) COPD (chronic obstructive pulmonary disease) with acute bronchitis (Chronic) Medical History: Medical History (Last Reviewed 08/14/20 @ 21:02 by Mariangel Kulkarni NP, MATERIAL HANDLING WAREHOUSE SUPERVISOR-C) Cervical cancer C53.9 Colon cancer C18.9 Malignant hypertension I10 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 Seizure disorder G40.909 COPD exacerbation J44.1 COPD with hypoxia J44.9, R09.02 Allergies Penicillins Allergy (Severe, Verified 12/04/19 13:42) hives Home Medications: Ambulatory Orders Medication Instructions Recorded oxygen-air delivery systems See Rx Instructions .ROUTE 03/26/19 .MEDSUPPLY #1 calcium carbonate 600 mg (1,500 1 cap PO BID #180 cap 06/04/19 mg)-vitamin D3 500 unit capsule docusate sodium 100 mg capsule 100 mg PO BID PRN 06/04/19 nebulizer #1 ea 02/11/20 albuterol sulfate 90 mcg/actuation 2 puff INHALATION Q4H PRN 90 Days 03/09/20 aerosol inhaler #25.5 g amlodipine 10 mg tablet 10 mg PO DAILY #90 tab 03/09/20 clonidine HCl 0.2 mg tablet 0.2 mg PO BID #180 tab 03/09/20 methimazole 5 mg tablet 2.5 mg PO DAILY #45 tab 03/09/20 metoprolol succinate 100 mg 100 mg PO DAILY #90 tab 03/09/20 tablet,extended release 24 hr phenytoin sodium extended 100 mg 100 mg PO BID #180 cap 03/09/20 capsule rosuvastatin 10 mg tablet 10 mg PO DAILY #90 tab 03/09/20 trazodone 100 mg tablet 100 mg PO QHS #90 tab 03/09/20 budesonide-formoterol HFA 160 2 puff INHALATION BID #30.6 g 04/30/20 mcg-4.5 mcg/actuation aerosol inhaler lansoprazole 30 mg capsule,delayed 30 mg PO DAILY #90 cap 04/30/20 release tramadol 50 mg tablet 50 mg PO TID PRN #60 tablet 08/14/20 alprazolam 0.5 mg tablet 0.5 mg PO BID PRN #60 tablet 08/24/20 hydrocodone 10 mg-acetaminophen 1 tablet PO BID PRN #60 tablet 09/10/20 325 mg tablet ipratropium 0.5 mg-albuterol 3 mg 3 ml INHALATION Q4H PRN #180 ml 09/10/20 (2.5 mg base)/3 mL nebulization soln Surgical History: Surgical History (Last Reviewed 08/14/20 @ 21:02 by Mariangel Kulkarni NP, MATERIAL HANDLING WAREHOUSE SUPERVISOR-C) FH: total abdominal hysterectomy and bilateral salpingo-oophorectomy Z84.2 History of bowel resection Z90.49 Surgical History: - - History of bowel resection, total abdominal hysterectomy with bilateral salpingo-oophorectomy. 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 Tobacco Use: Cigarettes Alcohol: None Drugs: None - *Family History Maternal Family History: Family History (Last Reviewed 08/14/20 @ 21:02 by Mariangel Kulkarni NP, MATERIAL HANDLING WAREHOUSE SUPERVISOR-C) Aunt Breast cancer History Items: Heart Disease Paternal Family History: Family History (Last Reviewed 08/14/20 @ 21:02 by Mariangel Kulkarni NP, MATERIAL HANDLING WAREHOUSE SUPERVISOR-C) Aunt Breast cancer History Items: Heart Disease Review of Systems Constitutional: Reports: Malaise, Weakness, Fatigue. Denies: Anorexia, Chills, Fever, Weight Change HEENT: Denies: Head Aches, Sinus Congestion, Sinus Drainage Cardiovascular: Reports: Chest Tightness. Denies: Chest Pain, Chest Pressure, Light Headedness, Orthopnea, Palpitations, Syncope Respiratory: Reports: Cough, Shortness of Breath, Shortness of breath at rest, Shortness of breath upon exertion, Wheezing. Denies: Sputum production Gastrointestinal: Denies: Abdominal Pain, Nausea, Vomiting Genitourinary: Denies: Dysuria Musculoskeletal: Reports: Joint Pain, Neck Pain. Denies: Joint Tenderness Skin: Denies: Rash, Wounds Neurological: Denies: Numbness, Tingling, Focal weakness Psychiatric: Reports: Anxiety, Depression. Denies: Homicidal Ideations, Suicidal Ideations Hematologic/ Lymphatic: Reports: Easy Bruising, Easy Bleeding VTE Information - Inpt Only VTE Present on Admission: No VTE Mechan Device Prophylaxis: SCD's VTE Pharm Prophylaxis ordered?: Yes Patient Problems: Active and Suspected Problems (Last Reviewed 08/14/20 @ 21:02 by Mariangel Kulkarni NP, MATERIAL HANDLING WAREHOUSE SUPERVISOR-C) Acute respiratory failure (Acute) COPD exacerbation (Acute) Hypotensive episode (Acute) NSTEMI (non-ST elevated myocardial infarction) (Acute) Subjective: Patient seated upright in the ICU bed, irritable, intermittently refusing certain interventions, completely oriented x3. Objective: Physical Examination: General: awake, alert, oriented x 3 and cooperative, seated upright in the ED bed, irritable, still some increased work of breathing and accessory muscle usage but improved she notes since initial outside ED presentation, irritable. Skin: normal color, turgor, no icterus, cyanosis. HEENT: AT/NC, EOMI, PERRLA, mildly dry MM, no carotid bruits or JVD noted. Lungs: Diffusely diminished breath sounds, greater bases, increased work of breathing and some accessory muscle usage, occasional end expiratory wheeze, upper airway sounds evident. Heart: Regular rate and rhythm; no gallop, rub audible. Abdomen: soft, thin habitus, NTTP, ND, normal BS, no HSM. Extremities: no cyanosis, clubbing, or edema. Neurological: patient awake, alert, oriented as noted; cognitive function intact; pupils equally reactive to light and accomodation; cranial nerves II-XII grossly normal, moving all 4 extremities, no focal deficits, strength moderately to severely global decrease secondary to acute presentation. Psychiatric: affect appears irritable, no acute evidence of depressive or anxiet y feelings. - Physical Exam Vitals/I&O's: Weight: 121 lb 4.068 oz Body Mass Index (BMI) 22.1 Current Medications Acetaminophen (Acetaminophen 325 Mg Tablet) 650 mg PO Q6H PRN PRN PRN Reason: Pain Score 1-10/Temp > 100.7 F Acetaminophen (Acetaminophen 650 Mg Suppository) 650 mg RC Q4H PRN PRN PRN Reason: Pain Score 1-10/Temp > 100.7 F Al Hydroxide/Mg Hydroxide (Mag Hydrox/Al Hydrox/Simeth 30 Ml Udc) 30 ml PO Q6H PRN PRN PRN Reason: Gastric Burning Albuterol Sulfate (Albuterol 2.5 Mg/3 Ml Vial.Neb.) 2.5 mg INHALATION Q2H PRN PRN PRN Reason: Dyspnea, wheezing Albuterol/Ipratropium (Ipratropium/Albuterol Sulfate 3 Ml Ampul.Neb) 3 ml INHALATION Q4HWA.RT KETTY Alprazolam (Alprazolam 0.5 Mg Tablet) 0.5 mg PO BID PRN PRN Reason: anxiety Aspirin (Aspirin 81 Mg Tab.Chew) 81 mg PO DAILY@0800 KETTY Atorvastatin Calcium (Atorvastatin Calcium 20 Mg Tablet) 20 mg PO QHS KETTY Last Admin: 09/13/20 23:04 Dose: 20 mg Documented by: Guaifenesin (Guaifenesin 10 Ml Udc (200mg/10ml)) 10 ml PO Q4H PRN PRN PRN Reason: COUGH Heparin Sodium (Porcine) (Heparin Injection (Vial) 5,000 Unit/Ml Vial) 0 unit IV UD PRN; Protocol PRN Reason: dose adjustment Hydralazine HCl (Hydralazine 20 Mg/Ml Vial) 10 mg IV Q4H PRN PRN PRN Reason: SBP > 160 Sodium Chloride () 1,000 mls @ 100 mls/hr IV .Q10H [facility] Last Admin: 09/13/20 22:17 Dose: 100 mls/hr Documented by: Vancomycin IV Pharmacy to Dose (1 each/ Sodium Chloride) 500 mls @ 250 mls/hr IV X1 PRN; Protocol PRN Reason: Rx to Dose Levofloxacin (Levaquin Iv) 750 mg in 150 mls @ 100 mls/hr IV Q24 [facility] Norepinephrine Bitartrate 8 mg (/ Sodium Chloride) 250 mls @ 9.375 mls/hr CONT INF .[id number] [facility]; Protocol Last Admin: 09/13/20 22:18 Dose: 5 mcg/min, 9.4 mls/hr Documented by: Heparin Sodium/Dextrose () 25,000 units in 250 mls @ 8 mls/hr IV .[id number] [facility]; Protocol Vancomycin HCl 1,500 mg/ (Sodium Chloride) 530 mls @ 250 mls/hr IV X1 ONE Stop: 09/14/20 01:07 Sodium Chloride () 250 mls @ 15 mls/hr IV .[id number] PRN PRN Reason: Saline Flush Sodium Chloride () 250 mls @ 15 mls/hr IV .[id number] PRN PRN Reason: Additional IVPB Infusion Magnesium Hydroxide (Magnesium Hydroxide 30 Ml Udc) 30 ml PO DAILY PRN PRN PRN Reason: Constipation Melatonin (Melatonin 3 Mg Tablet) 3 mg PO QHS PRN PRN PRN Reason: INSOMNIA Methimazole (Methimazole 5 Mg Tablet) 2.5 mg PO DAILY [facility] Methylprednisolone (Methylprednisolone 40 Mg/Ml Vial) 40 mg IV Q8 [facility] Last Admin: 09/13/20 23:03 Dose: 40 mg Documented by: Morphine Sulfate (Morphine 2 Mg/Ml Syringe) 2 mg IV Q3H PRN PRN PRN Reason: Pain Score 6-10 Nitroglycerin (Nitroglycerin (Inpatient Use) 0.4 Mg Tab.Subl) 0.4 mg SL Q5M PRN PRN Reason: CARDIAC/CHEST PAIN Ondansetron HCl (Ondansetron 4 Mg/2 Ml Vial) 4 mg IV Q8H PRN PRN PRN Reason: NAUSEA/VOMITING Oxycodone HCl (Oxycodone 5 Mg Tablet) 5 mg PO Q4H PRN PRN PRN Reason: Pain Score 4-5 Pantoprazole Sodium (Pantoprazole Sodium 40 Mg Tablet) 40 mg PO DAILY [facility] Phenytoin Sodium (Phenytoin Na 100 Mg Capsule) 100 mg PO BID [facility] Last Admin: 09/13/20 23:03 Dose: 100 mg Documented by: Prochlorperazine Edisylate (Prochlorperazine 10 Mg/2 Ml Vial) 5 mg IV Q4H PRN PRN PRN Reason: Breakthrough Nausea/Vomiting Psyllium Hydrophilic Mucilloid (Psyllium 1 Packet) 1 packet PO DAILY PRN PRN PRN Reason: Constipation Senna/Docusate Sodium (Senna/Docusate Sodium 1 Tablet) 2 tablet PO BID PRN PRN PRN Reason: Constipation Sodium Chloride (0.9% Saline Lock 10 Ml Syringe) 10 - 40 ml IV UD PRN PRN Reason: SALINE FLUSH Throat Lozenges (Benzocaine/Menthol 1 Lozenge) 1 lozenge MUCOUS MEM Q2H PRN PRN PRN Reason: SORE THROAT Assessment/Plan All Active Problems (Last Reviewed 08/14/20 @ 21:02 by Mariangel Kulkarni MATERIAL HANDLING WAREHOUSE SUPERVISOR, MATERIAL HANDLING WAREHOUSE SUPERVISOR-C) Acute respiratory failure (Acute) COPD exacerbation (Acute) Hypotensive episode (Acute) NSTEMI (non-ST elevated myocardial infarction) (Acute) Wheezing (Acute) Constipation (Acute) Abdominal pain (Acute) Insomnia disorder (Acute) Subscapular bursitis (Acute) The patient is a 80 y/o F w/ PMHx: Chronic COPD w/ Chronic Hypoxic Respiratory Failure (2L NC), Seizure disorder, HTN, HLD, GERD, Hx cervical s/p RADHA and colon CA s/p bowel resection, Tobacco use, Graves disease who presents to the [facility] ED as direct admission on 09/13/20 with history of worsening dyspnea over the last 1 to 2 days with significantly initial altered mental status with worsened wheezing, found by family with initially difficulty arousing and concern for pinpoint pupils noted to be on clonidine with potential double dose with EMS administration of Narcan prompting transition to the ED for evaluation. 1. Severe Hypotension secondary to Acute on Chronic Hypoxic and Hypercarbic Respiratory Failure secondary to Acute on chronic COPD exacerbation and concern for potenial underlying PE given NSTEMI, self-administration excessive Clonidine regimen (not purposeful OD): Outside hospital with vital signs heart rate 102, eventually hypotensive requiring pressor therapy, BUN/creatinine 24/2.12, NSTEMI with troponin initially 126 and second 145 which is high-sensitivity and ABG with notable respiratory failure with some component of hypercarbic failure. Will admit to the ICU, continue intensivitis consultation, continue pressor therapy with no central line placement as patient was completely alert and oriented eventually at outside facility and declined any aggressive measures including central line and intubation understanding risks. We will continue high flow oxygen versus Ventimask as patient declined BiPAP, will encourage BiPAP usage. Given patient current status and DNR CCA no intubation may need to consider transitioning to comfort measures/hospice if clinically deteriorates. Will maintain on ATC duonebs, PRN albuterol, IV methylprednisolone, HOB, IS parameters. Will obtain sputum cultures, antigens. Will maintain on broad- spectrum antibiotic therapy with levaquin and vancomycin with MRSA screen given unclear exact etiology and presentation not just consistent with COPD. Do suspect possibility of underlying pulmonary embolism as possible etiology given severity of hypertension, hypoxic respiratory failure, elevated troponin and BNP also elevated 462. Will obtain urine drug screen. 2. Acute NSTEMI: EKG in ED w/ sinus rhythm with no acute evidence of ischemia per outside ED, CXR w/ no acute cardiopulmonary findings per outside ED. Trop elevated, initial 126 with repeat 145 noted to be high-sensitivity consistent with NSTEMI. Will maintain on a monitored bed, continue serial cardiac enzymes and EKGs. Obtain magnesium level upon admission. Patient with therapeutic lovenox requested dose x1 administered at outside facility. Will transition to heparin drip given underlying renal function versus renally dosed Lovenox. Will continue medical management w/ asa, statin, not on BB w/ COPD history and currently hypotensive, obtain ECHO, AM FLP. Cardiology consulted. NPO given #1 and will need to clinically improve prior to any intervention considerations. ASA, NG, morphine. 3. Chronic Kidney Disease Stage III: Admission BUN/Cr 24/2.12, baseline renal function 2.0-2.1 over the last year, repeat BMP in AM. 4. Seizure disorder: We will continue patient home phenytoin regimen, level also requested given severity of presentation. 5. Hypertension: Given presentation with hypotension, maintain on pressor therapy will hold all regimen. Add back once appropriate. 6. Hyperlipidemia: We will continue patient home statin therapy, FLP in AM. 7. History of cervical cancer: Patient status post aggressive RADHA w/ BLSOO, remission status. 8. History of colon cancer: Status post bowel resection, remission status. 9. Graves disease: Will continue home methimazole regimen. 10. Tobacco Abuse: Encouraged cessation, inpatient consultation per RT, NR if desired. 11. GERD: Will maintain on PPI. 12. BARBIE: Encourage BIPAP consideration. 13. DVT prophylaxis: SCDs, lovenox. 14. CODE status: Patient ROBBIN is her daughter Jeanine Trejo and living will is currently in place. Discussed CODE status at length including difference between FULL code, DNR-CCA and DNR-CC status. Following discussions about the differences in these status, requested DNR-CCA, no intubation status in addition to no aggressive interventions including refusal of central line placement. Form is on her chart and signed, started at [facility] ED but not signed until discussions here at [facility]. Advanced Care Planning Face to Face Time: 16 minutes. Inpatient E&M: 44164 Init Hosp L3 Procedures: 66298 Advncd Care Plan 30 Min
[2020-09-13 23:50] LABS: Magnesium 1.7 mg/dL (1.6-2.6); Thyroid Stim Hormone (TSH) 1.02 uIU/mL (0.358-3.74)
[2020-09-13 23:57] LABS: Phenytoin (Dilantin) Level 2.5 mL (10.0-20.0)
[2020-09-14] VITALS (35 sets, daily range): BP systolic 73–114; BP diastolic 60–95; PULSE 72–106; RESP 12–29; TEMP 36.2–37; O2SAT 93–100
[2020-09-14] MEDS: Aspirin 325 MG Tablet PO (00:05)
[2020-09-14 00:09] LABS: Procalcitonin 0.16 ng/mL (0.00-0.09)
[2020-09-14 00:19] LABS: Prothrombin Time (Protime)PT. 12.7 SECONDS (11.7-14.9)
[2020-09-14 00:20] LABS: Partial Thromboplast Time 27.2 Seconds (24.1-36.2)
--- NOTE | 2020-09-14 00:26 | CPS ---
Pt refusing bipap at this time. RT and physician explained cautions and dangers of refusal to wear, pt states to understand
[2020-09-14] MEDS: HEPARIN/D5w 25,000 UNITS 25,000 UNITS/250 ML IV.SOLN. 8 UNITS IV (00:55)
[2020-09-14] MEDS: Heparin Injection (Vial) 5,000 UNIT/ML VIAL 4000 UNIT IV (00:56)
[2020-09-14] MEDS: 0.9% Saline Lock 10 ML Syringe IV ×3 (01:00→21:50)
--- NOTE | 2020-09-14 01:54 | VDLE_ITS ---
Reason For Study: Elevated D Dimer RIGHT LEFT GSV is normal. GSV is normal. CFV is compressible, spontaneous, competent CFV is compressible, spontaneous, competent, and demonstrates pulsatile venous flow. and demonstrates pulsatile venous flow. FV is compressible, spontaneous, competent FV is compressible, spontaneous, phasic, and demonstrates pulsatile venous flow. competent and demonstrates normal POP V is compressible, spontaneous, phasic, augmentation. competent and demonstrates normal POP V is compressible, spontaneous, phasic, augmentation. competent and demonstrates normal T/P Trunk is compressible. augmentation. PTV is compressible. T/P Trunk is compressible. RT PerV is compressible. PTV is compressible. Procedure LT PerV is compressible. This is a venous duplex using B-mode, color flow and spectral Doppler. The study was technically difficult. A preliminary report was called and/or faxed to [facility] @ 2:40 pm. VL/Venous Duplex US - Karthikeyan Extrem Interpretation Summary No evidence for acute deep venous thrombosis bilateral lower extremities with p atent and compressible bilateral great saphenous veins. Pulsatile venous flow noted bilat erally consistent with proximal venous hypertension or obstruction. Clinical correlation would be indicated. It is noted that the exam was felt to be technically difficult Ordering Physician: Precious Osorio Referring Physician: Mariangel Kulkarni Performed By: Eileen Brown, DANYCS, RVT
[2020-09-14 02:20] LABS: M R Staph aureus DNA By PCR Negative (Negative); Probe Check PASS; Specimen Processing Control PASS
[2020-09-14] MEDS: Albuterol 2.5 MG/3 ML VIAL.NEB. INHALATION (03:11)
[2020-09-14 03:45] LABS: Absolute Lymphocyte Count 0.42 X10^3/uL (0.83-4.51); Absolute Neutrophil Count 5.3 X10^3/uL (2.0-7.7); Basophil# 0.03 X10^3/uL; Basophil% 0.5 % (0-1); Differential Indicated SCAN CRITERIA MET; Hematocrit 38.5 % (37-47); Hemoglobin 11.6 g/dL (12.0-15.0); Lymphocyte # 0.42 X10^3/ul (0.83-4.51); Lymphocyte % 7.1 % (19-41); Mean Corp Hgb Conc 30.1 g/dL (32-36); Mean Corpuscular Hgb 32.3 pg (27.0-32.0); Mean Corpuscular Volume 107.2 fL (81-99); Mean Platelet Vol. 9.5 fl (6.2-12.0); Monocyte# 0.16 X10^3/uL; Monocyte% 2.7 % (0-10); NRBC Flagged by Analyzer 0 % (0-5); Neutrophil # 5.27 X10^3/uL (2.7-7.7); Neutrophil % 88.7 % (47-70); POSITIVE DIFFERENTIAL YES; Platelet Count 184 K/mm3 (150-450); RBC Distribution Width CV 13.5 % (11.6-14.6); RBC Distribution Width SD 54.1 fl (35.1-43.9); Red Blood Count 3.59 M/mm3 (4.2-5.4); White Blood Count 5.9 K/mm3 (4.4-11.0)
[2020-09-14 04:07] LABS: ALB/GLOB Ratio 0.7 RATIO (0.9-2.4); AST(SGOT) 108 U/L (15-37); Alanine Aminotransfer ALT/SGPT 106 U/L (13-56); Albumin, Serum 2.9 g/dL (3.2-5.0); Alkaline Phosphatase 209 U/L (45-117); Anion Gap 5 (5-15); BUN 23 mg/dL (7-18); BUN/Creat Ratio 12.1 RATIO (10-20); Calcium,Total 7.3 mg/dL (8.5-10.1); Chloride 110 mmol/L (98-107); EST Glomerular Filtration Rate 27 mL/min (>60); Est Glom Filt Rate - Afr Amer 33 mL/min (>60); Globulin 3.9 g/dL (2.2-4.2); Glucose 166 mg/dL (74-106); Protein, Total 6.8 g/dL (6.4-8.2); Sodium Level 140 mmol/L (136-145)
--- NOTE | 2020-09-14 05:10 | RAD_ITS ---
STUDY: X-RAY CHEST REASON FOR EXAM: Female, 80 years old. Dyspnea, cough TECHNIQUE: Single AP portable view of the chest. COMPARISON: None. FINDINGS: EKG electrodes are seen. Hyperinflation. The lungs are clear. There is blunting of the costophrenic angles bilaterally. Normal size heart. Normal mediastinum and alexandra. Normal visualized pulmonary arteries. There is atherosclerotic calcification of the aortic arch with tortuosity. There is demineralization of the osseous structures. Normal visualized ribs, clavicles, and shoulders. There is no demonstrated abnormality of the visualized soft tissue structures of the upper abdomen. RAD/Chest 1 View (Portable) IMPRESSION: Hyperinflation. Blunting of the costophrenic angles bilaterally. Electronically Signed: Nico Austin MD at 8:13 EDT , Service support ,
--- NOTE | 2020-09-14 05:42 | PCM.RX.CS ---
Consult Pharmacy has been consulted to manage selected antiobiotic: Vancomycin Type of Consult: New start Labs: Sodium 140 mmol/L (136-145) 09/14/20 03:40 Potassium 5.0 mmol/L (3.5-5.1) 09/14/20 03:40 Chloride 110 mmol/L (98-107) H 09/14/20 03:40 Carbon Dioxide 25.0 mmol/L (21.0-32.0) 09/14/20 03:40 Anion Gap 5 (5-15) 09/14/20 03:40 BUN 23 mg/dL (7-18) H 09/14/20 03:40 Creatinine 1.90 mg/dL (0.55-1.02) H 09/14/20 03:40 Est GFR (MDRD) Af Amer 33 mL/min (>60) L 09/14/20 03:40 Est GFR (MDRD) Non-Af 27 mL/min (>60) L 09/14/20 03:40 BUN/Creatinine Ratio 12.1 RATIO (10-20) 09/14/20 03:40 Glucose 166 mg/dL (74-106) H 09/14/20 03:40 Microbiology: Microbiology 09/13/20 23:25 Mucosa - Nasopharyngeal Respiratory Panel (PCR) - Final 09/14/20 00:20 Urine Catheter - Leavitt Legionella Antigen - Final 09/14/20 00:20 Urine Catheter - Leavitt Streptococcus pneumoniae Antigen (M - Final Weight used for dosin.3 kg Estimated Creatinine Clearance: 19.3 Goal Trough: 15-20 mcg/mL Pharmacy Plan for Drug Dosing: Pharmacy Service will continue to monitor and adjust dosing as required. BASED ON CRCl 19.3 GIVE 1ST DOSE AND DRAW TROUGH 09/15 IN AM PER VANCO PROTOCOL Follow-Up Labs: Trough Vancomycin Labs to be done on [date and time ordered]: 09/15 @ 0600
[2020-09-14] MEDS: Ipratropium/Albuterol Sulfate 3 ML AMPUL.NEB INHALATION ×4 (07:00→19:48)
[2020-09-14 07:04] LABS: Partial Thromboplast Time 136.2 Seconds (24.1-36.2)
[2020-09-14] MEDS: Aspirin 81 MG TAB.CHEW PO (08:06)
[2020-09-14] MEDS: Pantoprazole Sodium 40 MG Tablet PO (08:06)
[2020-09-14] MEDS: Phenytoin Na 100 MG Capsule PO ×2 (08:06→21:50)
[2020-09-14] MEDS: Methimazole 5 MG Tablet 2.5 MG PO (09:46)
[2020-09-14] MEDS: levoFLOXacin IV 750 MG/150 ML BAG 100 MG IV (09:47)
--- NOTE | 2020-09-14 10:05 | CON.PCM_ITS ---
Reason for Consult Date of Consultation: 09/14/20 History of Present Illness: The patient is a 80 year old F, Patient has chronic hypoxic respiratory failure with longstanding history of COPD.Patient continues to smoke daily. Cardiac consultation requested because of mild elevation of high sensitive troponin I. Patient denied any prior cardiac history in particular no history of bypass surgery, no history of coronary artery stenting or prior [place].Patient status is DNR Referred over here to [facility] as a direct admission Progressive worsening of her symptoms with hypotension, Seen today at bedside along with the nursing staff.No symptoms of chest pain reported she is on low- dose Levophed maintaining a systolic blood pressure of around 95 mmHg. The electronic device monitor showed underlying normal sinus rhythm.Patient has history of colon cancer with History of colon resection, Other medical problem include history of sleep apnea, GERD Recommendations; 1. I reviewed all the current medication will hold the lisinopril beta-alena and amlodipine due to the hypotension 2. We will continue on low-dose Levophed. 3. Patient clinical presentation is COPD with acute exacerbation and acute on chronic hypoxic respiratory failure. Patient has no active chest pain the mild elevation of cardiac biomarkers is secondary to renal insufficiency as well as Chronic hypoxic respiratory failure. 4. Patient is not a candidate for cardiac catheterization status of the patient is DNR. 5. The electrocardiogram revealed underlying normal sinus rhythm We will continue medical treatment.Echocardiogram to evaluate LV systolic functionI will follow-up clinically. Past Medical History Allergies/Adverse Reactions: Allergies Penicillins Allergy (Severe, Verified 12/04/19 13:42) hives Home Medications: Ambulatory Orders Medication Instructions Recorded oxygen-air delivery systems See Rx Instructions .ROUTE 03/26/19 .MEDSUPPLY #1 calcium carbonate 600 mg (1,500 1 cap PO BID #180 cap 06/04/19 mg)-vitamin D3 500 unit capsule docusate sodium 100 mg capsule 100 mg PO BID PRN 06/04/19 nebulizer #1 ea 02/11/20 albuterol sulfate 90 mcg/actuation 2 puff INHALATION Q4H PRN 90 Days 03/09/20 aerosol inhaler #25.5 g amlodipine 10 mg tablet 10 mg PO DAILY #90 tab 03/09/20 clonidine HCl 0.2 mg tablet 0.2 mg PO BID #180 tab 03/09/20 methimazole 5 mg tablet 2.5 mg PO DAILY #45 tab 03/09/20 metoprolol succinate 100 mg 100 mg PO DAILY #90 tab 03/09/20 tablet,extended release 24 hr phenytoin sodium extended 100 mg 100 mg PO BID #180 cap 03/09/20 capsule rosuvastatin 10 mg tablet 10 mg PO DAILY #90 tab 03/09/20 trazodone 100 mg tablet 100 mg PO QHS #90 tab 03/09/20 budesonide-formoterol HFA 160 2 puff INHALATION BID #30.6 g 04/30/20 mcg-4.5 mcg/actuation aerosol inhaler lansoprazole 30 mg capsule,delayed 30 mg PO DAILY #90 cap 04/30/20 release tramadol 50 mg tablet 50 mg PO TID PRN #60 tablet 08/14/20 alprazolam 0.5 mg tablet 0.5 mg PO BID PRN #60 tablet 08/24/20 hydrocodone 10 mg-acetaminophen 1 tablet PO BID PRN #60 tablet 09/10/20 325 mg tablet ipratropium 0.5 mg-albuterol 3 mg 3 ml INHALATION Q4H PRN #180 ml 09/10/20 (2.5 mg base)/3 mL nebulization soln Past Medical History (Chronic Problems): Chronic Problems (Last Reviewed 08/14/20 @ 21:02 by Mariangel Kulkarni NP, ELECTRONIC BENCH TECHNICIAN-C) Colon cancer (Chronic) GERD (gastroesophageal reflux disease) (Chronic) COPD with exacerbation (Chronic) COPD with acute exacerbation (Chronic) Sleep apnea in adult (Chronic) HTN (hypertension) (Chronic) COPD (chronic obstructive pulmonary disease) with acute bronchitis (Chronic) Surgical History: - - History of bowel resection, total abdominal hysterectomy with bilateral salpingo-oophorectomy. Psychiatric History: Anxiety, Depression DISTRIBUTION OPERATIONS MANAGER History: No pertinent DISTRIBUTION OPERATIONS MANAGER history - *Family History Maternal Family History: Family History (Last Reviewed 08/14/20 @ 21:02 by Mariangel Kulkarni NP, ELECTRONIC BENCH TECHNICIAN-C) Aunt Breast cancer History Items: Heart Disease Paternal Family History: Family History (Last Reviewed 08/14/20 @ 21:02 by Mariangel Kulkarni NP, ELECTRONIC BENCH TECHNICIAN-C) Aunt Breast cancer History Items: Heart Disease Lives: Alone Smoking Status: Current every day smoker - Patient note that her daily tobacco cigarette usage varies depending on her anxiety level, 1/2 to 1 pack/day at least smoking since youth. Tobacco Use: Cigarettes Alcohol: None Drugs: None Objective: Vital Signs Temp Pulse Resp BP Pulse Ox 98.2 F 77 20 H 73/60 L 100 09/14/20 04:00 09/14/20 07:35 09/14/20 07:01 09/14/20 06:00 09/14/20 06:00 Oxygen Flow Rate (L/min) 10 Oxygen Delivery Method Nasal Cannula Weight: 124 lb 1.924 oz Body Mass Index (BMI) 22.1 Intake and Output for Last 24 Hours 09/12/20 09/13/20 09/14/20 23:59 23:59 23:59 Intake Total 8.93 / 15.98 642.78 / 642.78 Output Total 300 / 300 Balance 8.93 / 15.98 342.78 / 342.78 General: Awake, Alert, Oriented x 3 Cardiovascular: Regular Rhythm, Normal S1, Normal S2, No Murmurs, No Rubs, No Gallops 09/13/20 23:15: Magnesium 1.7 09/13/20 23:15: Troponin I 0.374 H 09/13/20 23:55: PT 12.7, INR 1.0, APTT 27.2 09/14/20 03:30: WBC 5.9, RBC 3.59 L, Hgb 11.6 L, Hct 38.5, MCV 107.2 H, MCH 32.3 H, MCHC 30.1 L, Plt Count 184, MPV 9.5, Immature Gran % (Auto) 1.000 H, Neut % (Auto) 88.7 H, Lymph % (Auto) 7.1 L, [place] % (Auto) 2.7, Eos % (Auto) 0.0, Baso % (Auto) 0.5, Absolute Neuts (auto) 5.3, Nucleated RBC % 0 09/14/20 03:30: Troponin I 0.269 H 09/14/20 03:40: Sodium 140, Potassium 5.0, Chloride 110 H, Carbon Dioxide 25.0, Anion Gap 5, BUN 23 H, Creatinine 1.90 H, Est GFR (MDRD) Af Amer 33 L, Est GFR (MDRD) Non-Af 27 L, BUN/Creatinine Ratio 12.1, Glucose 166 H, Calcium 7.3 L, Total Bilirubin 0.20 09/14/20 06:27: Troponin I 0.204 H 09/14/20 06:27: APTT 136.2 H* Rhythm: Normal sinus rhythm EKG: Normal sinus rhythm
--- NOTE | 2020-09-14 10:52 | PN_ITS ---
Patient Problems: Active and Suspected Problems (Last Reviewed 08/14/20 @ 21:02 by Mariangel Kulkarni LUMBER GRADER, LUMBER GRADER-C) Acute respiratory failure (Acute) COPD exacerbation (Acute) Hypotensive episode (Acute) NSTEMI (non-ST elevated myocardial infarction) (Acute) Subjective: Feels better than when she came in but still feels terrible. She is down to 6 L nasal cannula and maintaining her oxygen sats so she is still on Levophed Vitals/I&O's: Vital Signs Temp Pulse Resp BP Pulse Ox 98.2 F 83 26 H 73/60 L 95 09/14/20 04:00 09/14/20 08:00 09/14/20 08:00 09/14/20 06:00 09/14/20 08:00 Oxygen Flow Rate (L/min) 6 Oxygen Delivery Method Nasal Cannula Weight: 124 lb 1.924 oz Body Mass Index (BMI) 22.1 Intake and Output for Last 24 Hours 09/12/20 09/13/20 09/14/20 23:59 23:59 23:59 Intake Total 8.93 / 15.98 642.78 / 642.78 Output Total 300 / 300 Balance 8.93 / 15.98 342.78 / 342.78 General: Alert, Oriented x3, Cooperative, No apparent distress HEENT: Atraumatic, PERRLA, EOMI, Normocephalic Oral: Moist Mucosa Neck: Supple, No JVD Lungs: No rhonchi, No rales, Diminished, Wheezes Cardiovascular: Regular rate, Regular Rhythm, Normal S1, Normal S2, No murmurs Abdomen: Soft, Non Tender, Non-Distended, No Hepato-splenomegaly Extremities: No edema, Capillary Refill Less than 3 Seconds Skin: No rashes, No breakdown Neurological: Neuro grossly intact, Sensory exam intact to light touch and pain Psych/Mental Status: Normal Affect, Appropriate Microbiology Past 72 Hours 09/13/20 23:25 Mucosa - Nasopharyngeal Respiratory Panel (PCR) - Final 09/14/20 00:20 Urine Catheter - Leavitt Legionella Antigen - Final 09/14/20 00:20 Urine Catheter - Leavitt Streptococcus pneumoniae Antigen (M - Final Laboratory Results 09/13/20 23:15: Magnesium 1.7, TSH 1.02, Free T4 0.70 L 09/13/20 23:15: Procalcitonin 0.16 H 09/13/20 23:15: Phenytoin 2.5 L 09/13/20 23:15: Troponin I 0.374 H 09/13/20 23:55: PT 12.7, INR 1.0, APTT 27.2 09/13/20 23:55: MRSA (PCR) Negative 09/14/20 03:30: WBC 5.9, RBC 3.59 L, Hgb 11.6 L, Hct 38.5, MCV 107.2 H, MCH 32.3 H, MCHC 30.1 L, RDW Std Deviation 54.1 H, RDW Coeff of Avelino 13.5, Plt Count 184, MPV 9.5, Immature Gran % (Auto) 1.000 H, Neut % (Auto) 88.7 H, Lymph % (Auto) 7.1 L, Coleman % (Auto) 2.7, Eos % (Auto) 0.0, Baso % (Auto) 0.5, Absolute Neuts (auto) 5.3, Absolute Lymphs (auto) 0.42 L, Nucleated RBC % 0 09/14/20 03:30: Troponin I 0.269 H 09/14/20 03:40: Sodium 140, Potassium 5.0, Chloride 110 H, Carbon Dioxide 25.0, Anion Gap 5, BUN 23 H, Creatinine 1.90 H, Estim Creat Clear Calc 19.30, Est GFR (MDRD) Af Amer 33 L, Est GFR (MDRD) Non-Af 27 L, BUN/Creatinine Ratio 12.1, Glucose 166 H, Calcium 7.3 L, Total Bilirubin 0.20, AST 108 H, ALT 106 H, Alkaline Phosphatase 209 H, Total Protein 6.8, Albumin 2.9 L, Globulin 3.9, Albumin/Globulin Ratio 0.7 L 09/14/20 06:27: Troponin I 0.204 H 09/14/20 06:27: APTT 136.2 H* Current Medications Acetaminophen (Acetaminophen 325 Mg Tablet) 650 mg PO Q6H PRN PRN PRN Reason: Pain Score 1-10/Temp > 100.7 F Acetaminophen (Acetaminophen 650 Mg Suppository) 650 mg RC Q4H PRN PRN PRN Reason: Pain Score 1-10/Temp > 100.7 F Al Hydroxide/Mg Hydroxide (Mag Hydrox/Al Hydrox/Simeth 30 Ml Udc) 30 ml PO Q6H PRN PRN PRN Reason: Gastric Burning Albuterol Sulfate (Albuterol 2.5 Mg/3 Ml Vial.Neb.) 2.5 mg INHALATION Q2H PRN PRN PRN Reason: Dyspnea, wheezing Last Admin: 09/14/20 03:11 Dose: 2.5 mg Documented by: Albuterol/Ipratropium (Ipratropium/Albuterol Sulfate 3 Ml Ampul.Neb) 3 ml INHALATION Q4HWA.RT [facility] Last Admin: 09/14/20 07:00 Dose: 3 ml Documented by: Alprazolam (Alprazolam 0.5 Mg Tablet) 0.5 mg PO BID PRN PRN Reason: anxiety Aspirin (Aspirin 81 Mg Tab.Chew) 81 mg PO DAILY@0800 [facility] Last Admin: 09/14/20 08:06 Dose: 81 mg Documented by: Atorvastatin Calcium (Atorvastatin Calcium 20 Mg Tablet) 20 mg PO QHS [facility] Last Admin: 09/13/20 23:04 Dose: 20 mg Documented by: Guaifenesin (Guaifenesin 10 Ml Udc (200mg/10ml)) 10 ml PO Q4H PRN PRN PRN Reason: COUGH Heparin Sodium (Porcine) (Heparin Injection (Vial) 5,000 Unit/Ml Vial) 0 unit IV UD PRN; Protocol PRN Reason: dose adjustment Hydralazine HCl (Hydralazine 20 Mg/Ml Vial) 10 mg IV Q4H PRN PRN PRN Reason: SBP > 160 Sodium Chloride () 1,000 mls @ 100 mls/hr IV .Q10H [facility] Last Admin: 09/13/20 22:17 Dose: 100 mls/hr Documented by: Levofloxacin (Levaquin Iv) 750 mg in 150 mls @ 100 mls/hr IV Q48 [facility] Last Admin: 09/14/20 09:47 Dose: 100 mls/hr Documented by: Norepinephrine Bitartrate 8 mg (/ Sodium Chloride) 250 mls @ 9.375 mls/hr CONT INF .[id number] [facility]; Protocol Last Titration: 09/14/20 06:00 Dose: 5 mcg/min, 9.4 mls/hr Documented by: Heparin Sodium/Dextrose () 25,000 units in 250 mls @ 8 mls/hr IV .[id number] [facility]; Protocol Last Titration: 09/14/20 10:00 Dose: 500 units/hr, 5 mls/hr Documented by: Sodium Chloride () 250 mls @ 15 mls/hr IV .[id number] PRN PRN Reason: Saline Flush Sodium Chloride () 250 mls @ 15 mls/hr IV .[id number] PRN PRN Reason: Additional IVPB Infusion Magnesium Hydroxide (Magnesium Hydroxide 30 Ml Udc) 30 ml PO DAILY PRN PRN PRN Reason: Constipation Melatonin (Melatonin 3 Mg Tablet) 3 mg PO QHS PRN PRN PRN Reason: INSOMNIA Methimazole (Methimazole 5 Mg Tablet) 2.5 mg PO DAILY [facility] Last Admin: 09/14/20 09:46 Dose: 2.5 mg Documented by: Methylprednisolone (Methylprednisolone 40 Mg/Ml Vial) 40 mg IV Q8 [facility] Last Admin: 09/14/20 06:29 Dose: 40 mg Documented by: Morphine Sulfate (Morphine 2 Mg/Ml Syringe) 2 mg IV Q3H PRN PRN PRN Reason: Pain Score 6-10 Nicotine (Nicotine 21 Mg Patch) 21 mg TD DAILY PRN PRN PRN Reason: Nicotine Craving Nitroglycerin (Nitroglycerin (Inpatient Use) 0.4 Mg Tab.Subl) 0.4 mg SL Q5M PRN PRN Reason: CARDIAC/CHEST PAIN Ondansetron HCl (Ondansetron 4 Mg/2 Ml Vial) 4 mg IV Q8H PRN PRN PRN Reason: NAUSEA/VOMITING Oxycodone HCl (Oxycodone 5 Mg Tablet) 5 mg PO Q4H PRN PRN PRN Reason: Pain Score 4-5 Pantoprazole Sodium (Pantoprazole Sodium 40 Mg Tablet) 40 mg PO DAILY [facility] Last Admin: 09/14/20 08:06 Dose: 40 mg Documented by: Phenytoin Sodium (Phenytoin Na 100 Mg Capsule) 100 mg PO BID [facility] Last Admin: 09/14/20 08:06 Dose: 100 mg Documented by: Prochlorperazine Edisylate (Prochlorperazine 10 Mg/2 Ml Vial) 5 mg IV Q4H PRN PRN PRN Reason: Breakthrough Nausea/Vomiting Psyllium Hydrophilic Mucilloid (Psyllium 1 Packet) 1 packet PO DAILY PRN PRN PRN Reason: Constipation Senna/Docusate Sodium (Senna/Docusate Sodium 1 Tablet) 2 tablet PO BID PRN PRN PRN Reason: Constipation Sodium Chloride (0.9% Saline Lock 10 Ml Syringe) 10 - 40 ml IV UD PRN PRN Reason: SALINE FLUSH Last Admin: 09/14/20 06:29 Dose: 30 ml Documented by: Throat Lozenges (Benzocaine/Menthol 1 Lozenge) 1 lozenge MUCOUS MEM Q2H PRN PRN PRN Reason: SORE THROAT STROKE Vital Signs/Narrative: Vital Signs Pulse Resp Pulse Ox 09/14/20 08:00 83 26 H 95 09/14/20 07:35 77 09/14/20 07:01 76 20 H Medical Necessity - Tobacco Use Smoking Status: Current every day smoker - Patient note that her daily tobacco cigarette usage varies depending on her anxiety level, 1/2 to 1 pack/day at least smoking since youth. Tobacco Use: Cigarettes Assessment/Plan All Active Problems (Last Reviewed 08/14/20 @ 21:02 by Mariangel Kulkarni LUMBER GRADER, LUMBER GRADER-C) Acute respiratory failure (Acute) COPD exacerbation (Acute) Hypotensive episode (Acute) NSTEMI (non-ST elevated myocardial infarction) (Acute) Wheezing (Acute) Constipation (Acute) Abdominal pain (Acute) Insomnia disorder (Acute) Subscapular bursitis (Acute) 1. Shock of unknown etiology/acute hypoxic and hypercapnic respiratory failure secondary to acute COPD exacerbation/BARBIE/continued tobacco abuse -Continue with oxygen via nasal cannula, she is currently down to 6 L -Wean pressors as able -Appreciate pile header assistance -We will plan to discontinue Levaquin in another 24 to 48 hours -Continue with steroids and inhalers -Encourage cessation of tobacco products 2. Non-STEMI/HTN/HLD -Consult to cardiology, based on her renal insufficiency as well as her hypoxia, this was felt to be the cause of her elevated troponin -No aggressive cardiac intervention, will discuss with cardiology about discontinuation of her heparin drip -We will hold her home blood pressure medication secondary to her hypotension continue with pressors -Continue with statin 3. CKD 3 -Creatinine is at baseline -Continue to monitor 4. Seizure disorder -Stable -Continue with her home phenytoin, will follow up level 5. History of cervical cancer and colon cancer -She is status post a RADHA with BSO as well as a partial colectomy -Both are in remission 6. Graves' disease -Stable -Continue with methimazole 7. GERD -Stable -Continue with PPI DVT: Heparin Inpatient E&M: [id number] Subs Hosp L2
--- NOTE | 2020-09-14 11:44 | CASEMGMT ---
This RN CM to room to see pt and therapy is at bedside at this time. CM to attempt again later. SStted RN CM
[2020-09-14] MEDS: 0.9% Normal Saline 1,000 ML 100 ML IV ×2 (11:55→21:50)
--- NOTE | 2020-09-14 12:05 | CASEMGMT ---
IRMA KEN assessment: Face to Face with patient for initial transition planning/care coordination assessment. RN SUELLEN introduced self and role at [facility], pt voices understanding and consents to assessment. Pt is sitting up in chair on 6L nc with some tachypnea. Pt is A/Ox4 and answers all questions appropriately but pt is KALTAG. Care providers, pharmacy, and demographics verified/updated. Presentation: Pt was a direct admit from [facility] [place] for worsening dyspnea, AMS Admitting dx: Acute resp failure, COPD exac PCP: [facility] Specialists: Pt states no current specialists. [facility]erred [facility]acy[facility] Insurance: [facility] Prescription Benefit: Anth[employer] Living Will/HPOA: Pt states has LW/HPOA and is aware that they are not on file at [facility]. Pt states her daughter, Jeanine Trejo, is HPOA. LNOK: Jeanine Trejo, daughter/HPOA; Deena Sandra, niece Living Arrangements: Pt states was living alone but is planning to go stay with daughter indefinitely and daughter lives in 2nd floor duplex so pt will have to go up a flight of stairs to get into home. Pt states is normally independent with ADL's but has been struggling d/t SOB/weakness. Transportation: Pt states niece drives and states no transportation concerns. DME/HHC: Pt states has the following DME: walker, w/c(at daughter's), shower chair, and 4L continuous home oxygen thru [facility]. Pt states no need for any further DME. Pt states has had HHC in the past but has not been to SNF. Pt states no concerns with going home at time of discharge. Pt is retired. Pt states still smokes about 1/2-1 pack cigarettes daily and states does not drink ETOH. Pt states no further concerns/needs. CM to follow for PT/OT evals, increased home oxygen need, and any further discharge planning/needs. Advised pt to ask for CM if any further questions/concerns/needs arise, voices understanding. Pt Goal: Home Plan: Home w/ daughter, pending PT/OT evals, increased home oxygen need. [place] IRMA KEN
--- NOTE | 2020-09-14 12:12 | PCM.CON.CC ---
Problem List (1) COPD exacerbation Status: Acute (2) Hypotensive episode Status: Acute (3) Constipation Status: Acute Qualifiers: Constipation type: slow transit constipation Qualified Code(s): K59.01 - Slow transit constipation (4) GERD (gastroesophageal reflux disease) Status: Chronic Qualifiers: Esophagitis presence: esophagitis presence not specified Qualified Code(s): K21.9 - Gastro-esophageal reflux disease without esophagitis (5) COPD with acute exacerbation Status: Chronic (6) Sleep apnea in adult Status: Chronic Reason for Consult Date of Consultation: 09/14/20 Reason for Consultation: Acute respiratory failure History of Present Illness: The patient is a 80 year old F, with past medical history listed below, who presented [facility] as a transfer secondary to worsening shortness of breath and decreased mental status. Patient reportedly was noted by EMS to be 54% in the field and was placed on CPAP before presenting to an outside facility. Patient reportedly refused continued CPAP, so Ventimask was placed on 40% FiO2, aerosols and Solu-Medrol with significant improvement in overall mental status. In [place], patient was reportedly hypotensive with marginal saturations. However, patient refused any noninvasive respiratory support, central line or pressor therapy. At the outside facility, patient was noted to be at her baseline creatinine of 2.1, but slightly elevated troponin. EKG was unremarkable, but ABG showed a pH of 7.2, PCO2 of 63 and a PO2 of 68. Covid testing was negative. BNP was slightly elevated at 462. Patient was placed on Levophed following a 30 cc/kg normal saline bolus. Patient was also given Levaquin, Solu-Medrol and albuterol. On arrival to [facility], patient was irritable and refusing most interventions. Patient was noted to be alert and oriented at that time. Hospitalist reported significant diminished breath sounds with bilateral wheezing. Patient was admitted to the intensive care unit on pressor therapy to be monitored overnight. Patient refused Ventimask, so subsequently placed on 10 L nasal cannula to maintain appropriate saturations. CODE STATUS was changed to DNR Comfort Care arrest without intubation per patient request. There was some concern for pulmonary emboli, but given renal function, CTA was not obtained. Patient was placed on heparin drip empirically pending venous studies ordered for today. This morning, patient reported subjective improvement in overall condition. Patient is a very poor historian and unable to provide much additional history. Patient does state that she is on oxygen at 2 L nasal cannula at baseline, but is unable to tell me who her primary housekeeper supervisor is. Patient is very hard of hearing. Patient is able to report that she feels better following breathing treatments, but patient is not clear on when symptoms started. Patient is unable to tell me her baseline medications. Patient reports that she does not use hearing aids at baseline secondary to poor battery life. Unable to obtain a reliable review of systems Past Medical History Past Medical History (Chronic Problems): Chronic Problems (Last Reviewed 08/14/20 @ 21:02 by Mariangel Kulkarni NP, [employer]) Colon cancer (Chronic) GERD (gastroesophageal reflux disease) (Chronic) COPD with exacerbation (Chronic) COPD with acute exacerbation (Chronic) Sleep apnea in adult (Chronic) HTN (hypertension) (Chronic) COPD (chronic obstructive pulmonary disease) with acute bronchitis (Chronic) Medical History: Medical History (Last Reviewed 08/14/20 @ 21:02 by Mariangel Kulkarni NP, [employer]-C) Cervical cancer C53.9 Colon cancer C18.9 Malignant hypertension I10 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 Seizure disorder G40.909 COPD exacerbation J44.1 COPD with hypoxia J44.9, R09.02 Allergies Penicillins Allergy (Severe, Verified 12/04/19 13:42) hives Home Medications: Ambulatory Orders Medication Instructions Recorded oxygen-air delivery systems See Rx Instructions .ROUTE 03/26/19 .MEDSUPPLY #1 calcium carbonate 600 mg (1,500 1 cap PO BID #180 cap 06/04/19 mg)-vitamin D3 500 unit capsule docusate sodium 100 mg capsule 100 mg PO BID PRN 06/04/19 nebulizer #1 ea 02/11/20 albuterol sulfate 90 mcg/actuation 2 puff INHALATION Q4H PRN 90 Days 03/09/20 aerosol inhaler #25.5 g amlodipine 10 mg tablet 10 mg PO DAILY #90 tab 03/09/20 clonidine HCl 0.2 mg tablet 0.2 mg PO BID #180 tab 03/09/20 methimazole 5 mg tablet 2.5 mg PO DAILY #45 tab 03/09/20 metoprolol succinate 100 mg 100 mg PO DAILY #90 tab 03/09/20 tablet,extended release 24 hr phenytoin sodium extended 100 mg 100 mg PO BID #180 cap 03/09/20 capsule rosuvastatin 10 mg tablet 10 mg PO DAILY #90 tab 03/09/20 trazodone 100 mg tablet 100 mg PO QHS #90 tab 03/09/20 budesonide-formoterol HFA 160 2 puff INHALATION BID #30.6 g 04/30/20 mcg-4.5 mcg/actuation aerosol inhaler lansoprazole 30 mg capsule,delayed 30 mg PO DAILY #90 cap 04/30/20 release tramadol 50 mg tablet 50 mg PO TID PRN #60 tablet 08/14/20 alprazolam 0.5 mg tablet 0.5 mg PO BID PRN #60 tablet 08/24/20 hydrocodone 10 mg-acetaminophen 1 tablet PO BID PRN #60 tablet 09/10/20 325 mg tablet ipratropium 0.5 mg-albuterol 3 mg 3 ml INHALATION Q4H PRN #180 ml 09/10/20 (2.5 mg base)/3 mL nebulization soln Surgical History: Surgical History (Last Reviewed 08/14/20 @ 21:02 by Mariangel Kulkarni NP, [employer]) FH: total abdominal hysterectomy and bilateral salpingo-oophorectomy Z84.2 History of bowel resection Z90.49 Surgical History: - - History of bowel resection, total abdominal hysterectomy with bilateral salpingo-oophorectomy. Psychiatric History: Anxiety, Depression HAUL DRIVER History: No pertinent HAUL DRIVER history Lives: Alone Smoking Status: Current every day smoker - Patient note that her daily tobacco cigarette usage varies depending on her anxiety level, 1/2 to 1 pack/day at least smoking since youth. Tobacco Use: Cigarettes Alcohol: None Drugs: None - *Family History Maternal Family History: Family History (Last Reviewed 08/14/20 @ 21:02 by Mariangel Kulkarni NP, [employer]) Aunt Breast cancer History Items: Heart Disease Paternal Family History: Family History (Last Reviewed 08/14/20 @ 21:02 by Mariangel Kulkarni NP, [employer]) Aunt Breast cancer History Items: Heart Disease Review of Systems Unable to obtain accurate/complete ROS d/t: Patient cooperation Patient Problems: Active and Suspected Problems (Last Reviewed 08/14/20 @ 21:02 by Mariangel Kulkarni NP, [employer]) Acute respiratory failure (Acute) COPD exacerbation (Acute) Hypotensive episode (Acute) NSTEMI (non-ST elevated myocardial infarction) (Acute) Objective: Chest x-ray was personally reviewed. This shows no acute infiltrate. There is some cephalization and blunting of the right costophrenic angle noted. No pulmonary function tests are available for review. Patient has never had a echocardiogram at this institution. There was a walking oximetry recently completed showing patient required 4 L nasal cannula with exertion. Patient was scheduled to see me in the office, but canceled the appointment. - Physical Exam Vitals/I&O's: Vital Signs Temp Pulse Resp BP Pulse Ox 36.8 C 90 24 H 86/66 L 95 09/14/20 04:00 09/14/20 11:01 09/14/20 11:01 09/14/20 10:00 09/14/20 10:00 Oxygen Flow Rate (L/min) 6 Oxygen Delivery Method Nasal Cannula Weight: 56.3 kg Body Mass Index (BMI) 22.1 Intake and Output for Last 24 Hours 09/12/20 09/13/20 09/14/20 23:59 23:59 23:59 Intake Total 8.93 / 15.98 1830.38 / 1830.38 Output Total 300 / 300 Balance 8.93 / 15.98 1530.38 / 1530.38 General: Alert, Oriented x3, Non-Cooperative, - - Hard of hearing. Mild conversational dyspnea. HEENT: Atraumatic, PERRLA, EOMI, Normocephalic, - - Claritin injection without icterus. Oral: Moist Mucosa, No Gingival or Mucosal Lesions/ Ulcerations Neck: Supple, No Nodes, Trachea Midline, JVD, Right Lungs: No rhonchi, No rales, Diminished, Wheezes - Bilateral Cardiovascular: Regular rate, Regular Rhythm, Normal S1, Normal S2, No murmurs, No rub noted, No Gallop Abdomen: Bowel Sounds Present, Soft, Non Tender, Non-Distended Extremities: No cyanosis, No edema, Clubbing Skin: No rashes, No breakdown Musculoskeletal: No Tenderness to Palpation of Joints or Extremities Lymphatic: No Cervical, Supraclavicular, or Inguinal Adenopathy Neurological: Cranial nerves II-XII grossly intact, Neuro grossly intact, Motor Exam 5/5 strength throughout Psych/Mental Status: Anxious, Impulsive, Restless Microbiology Past 72 Hours 04/25/21 23:25 Mucosa - Nasopharyngeal Respiratory Panel (PCR) - Final 09/14/20 00:20 Urine Catheter - [place] Legionella Antigen - Final 09/14/20 00:20 Urine Catheter - [place] Streptococcus pneumoniae Antigen (M - Final Laboratory Results 09/13/20 23:15: Magnesium 1.7, TSH 1.02, Free T4 0.70 L 09/13/20 23:15: Procalcitonin 0.16 H 09/13/20 23:15: Phenytoin 2.5 L 09/13/20 23:15: Troponin I 0.374 H 09/13/20 23:55: PT 12.7, INR 1.0, APTT 27.2 09/13/20 23:55: MRSA (PCR) Negative 09/14/20 03:30: WBC 5.9, RBC 3.59 L, Hgb 11.6 L, Hct 38.5, MCV 107.2 H, MCH 32.3 H, MCHC 30.1 L, RDW Std Deviation 54.1 H, RDW Coeff of Avelino 13.5, Plt Count 184, MPV 9.5, Immature Gran % (Auto) 1.000 H, Neut % (Auto) 88.7 H, Lymph % (Auto) 7.1 L, [place] % (Auto) 2.7, Eos % (Auto) 0.0, Baso % (Auto) 0.5, Absolute Neuts (auto) 5.3, Absolute Lymphs (auto) 0.42 L, Nucleated RBC % 0 09/14/20 03:30: Troponin I 0.269 H 09/14/20 03:40: Sodium 140, Potassium 5.0, Chloride 110 H, Carbon Dioxide 25.0, Anion Gap 5, BUN 23 H, Creatinine 1.90 H, Estim Creat Clear Calc 19.30, Est GFR (MDRD) Af Amer 33 L, Est GFR (MDRD) Non-Af 27 L, BUN/Creatinine Ratio 12.1, Glucose 166 H, Calcium 7.3 L, Total Bilirubin 0.20, AST 108 H, ALT 106 H, Alkaline Phosphatase 209 H, Total Protein 6.8, Albumin 2.9 L, Globulin 3.9, Albumin/Globulin Ratio 0.7 L 09/14/20 06:27: Troponin I 0.204 H 09/14/20 06:27: APTT 136.2 H* Current Medications Acetaminophen (Acetaminophen 325 Mg Tablet) 650 mg PO Q6H PRN PRN PRN Reason: Pain Score 1-10/Temp > 100.7 F Acetaminophen (Acetaminophen 650 Mg Suppository) 650 mg RC Q4H PRN PRN PRN Reason: Pain Score 1-10/Temp > 100.7 F Al Hydroxide/Mg Hydroxide (Mag Hydrox/Al Hydrox/Simeth 30 Ml Udc) 30 ml PO Q6H PRN PRN PRN Reason: Gastric Burning Albuterol Sulfate (Albuterol 2.5 Mg/3 Ml Vial.Neb.) 2.5 mg INHALATION Q2H PRN PRN PRN Reason: Dyspnea, wheezing Last Admin: 09/14/20 03:11 Dose: 2.5 mg Documented by: Albuterol/Ipratropium (Ipratropium/Albuterol Sulfate 3 Ml Ampul.Neb) 3 ml INHALATION Q4HWA.RT [facility] Last Admin: 09/14/20 11:00 Dose: 3 ml Documented by: Alprazolam (Alprazolam 0.5 Mg Tablet) 0.5 mg PO BID PRN PRN Reason: anxiety Aspirin (Aspirin 81 Mg Tab.Chew) 81 mg PO DAILY@0800 [facility] Last Admin: 09/14/20 08:06 Dose: 81 mg Documented by: Atorvastatin Calcium (Atorvastatin Calcium 20 Mg Tablet) 20 mg PO QHS [facility] Last Admin: 09/13/20 23:04 Dose: 20 mg Documented by: Guaifenesin (Guaifenesin 10 Ml Udc (200mg/10ml)) 10 ml PO Q4H PRN PRN PRN Reason: COUGH Heparin Sodium (Porcine) (Heparin Injection (Vial) 5,000 Unit/Ml Vial) 0 unit IV UD PRN; Protocol PRN Reason: dose adjustment Hydralazine HCl (Hydralazine 20 Mg/Ml Vial) 10 mg IV Q4H PRN PRN PRN Reason: SBP > 160 Sodium Chloride () 1,000 mls @ 100 mls/hr IV .Q10H [facility] Last Admin: 09/14/20 11:55 Dose: 100 mls/hr Documented by: Levofloxacin (Levaquin Iv) 750 mg in 150 mls @ 100 mls/hr IV Q48 [facility] Last Infusion: 09/14/20 11:17 Dose: Infused Documented by: Norepinephrine Bitartrate 8 mg (/ Sodium Chloride) 250 mls @ 9.375 mls/hr CONT INF .[id number] [facility]; Protocol Last Titration: 09/14/20 10:00 Dose: 5 mcg/min, 9.4 mls/hr Documented by: Heparin Sodium/Dextrose () 25,000 units in 250 mls @ 8 mls/hr IV .[id number] [facility]; Protocol Last Titration: 09/14/20 10:00 Dose: 500 units/hr, 5 mls/hr Documented by: Sodium Chloride () 250 mls @ 15 mls/hr IV .[id number] PRN PRN Reason: Saline Flush Sodium Chloride () 250 mls @ 15 mls/hr IV .[id number] PRN PRN Reason: Additional IVPB Infusion Magnesium Hydroxide (Magnesium Hydroxide 30 Ml Udc) 30 ml PO DAILY PRN PRN PRN Reason: Constipation Melatonin (Melatonin 3 Mg Tablet) 3 mg PO QHS PRN PRN PRN Reason: INSOMNIA Methimazole (Methimazole 5 Mg Tablet) 2.5 mg PO DAILY [facility] Last Admin: 09/14/20 09:46 Dose: 2.5 mg Documented by: Methylprednisolone (Methylprednisolone 40 Mg/Ml Vial) 40 mg IV Q8 [facility] Last Admin: 09/14/20 06:29 Dose: 40 mg Documented by: Morphine Sulfate (Morphine 2 Mg/Ml Syringe) 2 mg IV Q3H PRN PRN PRN Reason: Pain Score 6-10 Nicotine (Nicotine 21 Mg Patch) 21 mg TD DAILY PRN PRN PRN Reason: Nicotine Craving Nitroglycerin (Nitroglycerin (Inpatient Use) 0.4 Mg Tab.Subl) 0.4 mg SL Q5M PRN PRN Reason: CARDIAC/CHEST PAIN Ondansetron HCl (Ondansetron 4 Mg/2 Ml Vial) 4 mg IV Q8H PRN PRN PRN Reason: NAUSEA/VOMITING Oxycodone HCl (Oxycodone 5 Mg Tablet) 5 mg PO Q4H PRN PRN PRN Reason: Pain Score 4-5 Pantoprazole Sodium (Pantoprazole Sodium 40 Mg Tablet) 40 mg PO DAILY [facility] Last Admin: 09/14/20 08:06 Dose: 40 mg Documented by: Phenytoin Sodium (Phenytoin Na 100 Mg Capsule) 100 mg PO BID [facility] Last Admin: 09/14/20 08:06 Dose: 100 mg Documented by: Prochlorperazine Edisylate (Prochlorperazine 10 Mg/2 Ml Vial) 5 mg IV Q4H PRN PRN PRN Reason: Breakthrough Nausea/Vomiting Psyllium Hydrophilic Mucilloid (Psyllium 1 Packet) 1 packet PO DAILY PRN PRN PRN Reason: Constipation Senna/Docusate Sodium (Senna/Docusate Sodium 1 Tablet) 2 tablet PO BID PRN PRN PRN Reason: Constipation Sodium Chloride (0.9% Saline Lock 10 Ml Syringe) 10 - 40 ml IV UD PRN PRN Reason: SALINE FLUSH Last Admin: 09/14/20 06:29 Dose: 30 ml Documented by: Throat Lozenges (Benzocaine/Menthol 1 Lozenge) 1 lozenge MUCOUS MEM Q2H PRN PRN PRN Reason: SORE THROAT Clinical Impression(s) from Imaging Studies Chest X-Ray 09/14/20 05:10 IMPRESSION: Hyperinflation. Blunting of the costophrenic angles bilaterally. Electronically Signed: Nico Austin MD at 8:13 EDT , Service support , Assessment/Plan Active and Suspected Problems (Last Reviewed 08/14/20 @ 21:02 by Mariangel Kulkarni [employer], [employer]) Acute respiratory failure (Acute) COPD exacerbation (Acute) Hypotensive episode (Acute) NSTEMI (non-ST elevated myocardial infarction) (Acute) RECOMMENDATIONS: 1. Continue empiric antibiotics pending culture data 2. Wean pressors as tolerated 3. Hold antihypertensives 4. Await echocardiogram 5. Await cardiology consult 6. Await Doppler studies. Possible VQ scan 7. Continue baseline antiepileptic medications IMPRESSIONS: 1. Severe hypotension requiring pressor therapy Unclear etiology at this time. Patient may have taken extra antihypertensive medications. Patient does not have an acute infiltrate on chest x-ray. Reasonable to continue with empiric antibiotics for now. Patient is on Solu-Medrol, so adrenal insufficiency is unlikely. We will continue to support blood pressure with pressors. Patient refusing central line for optimal delivery. Patient understands the risk with extravasation. 2. Acute on chronic combined respiratory failure secondary to COPD exacerbation Patient appears to have significant COPD. Unclear who primary housekeeper supervisor is at this time. We will continue with Solu-Medrol, duo nebs and antibiotics. Cultures have been obtained. Patient may also have an element of CHF. Cardiology has been consulted. Wean oxygen as tolerated. There is also a concern for possible pulmonary emboli. Lower extremity Dopplers are currently pending. Given renal function, VQ scan may be necessary to evaluate if pretest probability remains high. Patient does have a history of multiple cancers in the past currently in remission. 3. Elevated troponin Unclear if elevated troponin is secondary to a primary cardiac event versus global hypoxia. Continue to support oxygenation. Cardiology has been consulted. 4. Chronic kidney disease stage III/seizure disorder/hypertension/hyperlipidemia/history of multiple cancers/BARBIE/tobacco abuse/Graves' disease Complicates care, management, recovery and prognosis. Noncompliant with BARBIE therapy at this time. Stressed the importance of smoking cessation. Some concern for patient's ability to comply with home medications. May benefit from dosing service. Case management/social work to follow TIME: 40 minutes critical care time spent addressing patient's hypotension, respiratory failure, elevated troponin, review of all data and collaboration with care team (7 AM to 10 AM) 9xxxx: [id number] Critical care first hour
[2020-09-14] MEDS: ALPRAZolam 0.5 MG Tablet PO ×2 (13:12→21:49)
[2020-09-14 16:49] LABS: Partial Thromboplast Time 22.1 Seconds (24.1-36.2)
[2020-09-14] MEDS: Heparin Injection (Vial) 5,000 UNIT/ML VIAL IV (17:13)
--- NOTE | 2020-09-14 20:08 | NURSING ---
1929- Came onto shift and after getting report from heather RN I walked into room to introduce myself and check drips. I saw that the Levo @5mcg/min, NS @100ml/hr, and Heparin @7ml/hr. This is what I was also told the drips were at in report. According to MAR the heparin was still at 5ml/hr and was never titrated to 7ml/hr on the JUL so I had put a titration in for 1929 that Heparin is at 7ml/hr.
[2020-09-14] MEDS: MELATONIN 3 MG TABLET PO (21:49)
[2020-09-14] MEDS: Atorvastatin Calcium 20 MG Tablet PO (21:49)
--- NOTE | 2020-09-14 22:40 | CPS ---
decreased O2 to 4 lpm nasal cannula
[2020-09-14 23:35] LABS: Partial Thromboplast Time 113.3 Seconds (24.1-36.2)
[2020-09-15] VITALS (19 sets, daily range): BP systolic 97–197; BP diastolic 72–118; PULSE 89–122; RESP 15–28; TEMP 36.6–37; O2SAT 94–100
[2020-09-15] MEDS: Ipratropium/Albuterol Sulfate 3 ML AMPUL.NEB INHALATION ×4 (06:21→23:56)
[2020-09-15 07:48] LABS: Anion Gap 4 (5-15); BUN 24 mg/dL (7-18); BUN/Creat Ratio 12.2 RATIO (10-20); Chloride 107 mmol/L (98-107); Creatinine, Serum 1.97 mg/dL (0.55-1.02); Estimated Creatinine Clearance 18.61 ml/min; Glucose 161 mg/dL (74-106); Magnesium 1.4 mg/dL (1.6-2.6); Phosphorus 3.6 mg/dL (2.5-4.9); Potassium 4.4 mmol/L (3.5-5.1); Sodium Level 140 mmol/L (136-145)
[2020-09-15 08:16] LABS: Partial Thromboplast Time 27.5 Seconds (24.1-36.2)
--- NOTE | 2020-09-15 09:24 | PCM.PN.HOSP ---
Subjective Subjective: Feels chilled this morning. Breathing a little better and is down to 4L NC Objective Data Objective Data Vital Signs: Vital Signs Temp Pulse Resp BP Pulse Ox 98.6 F 98 15 110/87 H 98 09/15/20 00:00 09/15/20 08:00 09/15/20 00:58 09/15/20 00:58 09/15/20 08:00 Oxygen Flow Rate (L/min) 6 Oxygen Delivery Method Nasal Cannula Weight: 124 lb 1.924 oz Body Mass Index (BMI) 22.1 Intake & Output: Intake and Output for Last 24 Hours 09/14/20 09/15/20 09/16/20 03:59 03:59 03:59 Intake Total 574.18 / 583.58 2888.58 / 2888.58 Output Total 150 / 150 1225 / 1225 Balance 424.18 / 433.58 1663.58 / 1663.58 Lab / Micro Data Result Diagrams: 09/14/20 03:30 09/15/20 04:25 Labs: Laboratory Results - last 24 hr 09/14/20 09/14/20 09/15/20 15:50 23:10 04:25 APTT 22.1 L 113.3 H* Sodium 140 Potassium 4.4 Chloride 107 Carbon Dioxide 29.0 Anion Gap 4 L BUN 24 H Creatinine 1.97 H Estim Creat Clear Calc 18.61 Est GFR (MDRD) Af Amer TNP Est GFR (MDRD) Non-Af TNP BUN/Creatinine Ratio 12.2 Glucose 161 H Calcium 7.0 L Phosphorus 3.6 Magnesium 1.4 L 09/15/20 07:40 APTT 27.5 Sodium Potassium Chloride Carbon Dioxide Anion Gap BUN Creatinine Estim Creat Clear Calc Est GFR (MDRD) Af Amer Est GFR (MDRD) Non-Af BUN/Creatinine Ratio Glucose Calcium Phosphorus Magnesium Micro: Microbiology 09/13/20 15:00 Sputum, Expectorated/Coughed Gram Stain - Preliminary 09/13/20 23:25 Mucosa - Nasopharyngeal Respiratory Panel (PCR) - Final 09/14/20 00:20 Urine Catheter - Leavitt Legionella Antigen - Final 09/14/20 00:20 Urine Catheter - [place] Streptococcus pneumoniae Antigen (M - Final Radiography Diagnostic Testing: Radiology Impression Echocardiogram 09/13/20 20:57 Interpretation Summary Preserved LV systolic function EF 50-55% Ordering Physician: Precious Osorio Referring Physician: Mariangel Kulkarni Performed By: Nicolás Pickens RCS Venous Doppler Study 09/14/20 01:54 Interpretation Summary No evidence for acute deep venous thrombosis bilateral lower extremities with patent and compressible bilateral great saphenous veins. Pulsatile venous flow noted bilaterally consistent with proximal venous hypertension or obstruction. Clinical correlation would be indicated. It is noted that the exam was felt to be technically difficult Ordering Physician: Precious Osorio Referring Physician: Mariangel Kulkarni Performed By: Eileen Brown, CHUCKIE, RVT Physical Exam Narrative General: Alert, Oriented x3, Cooperative, No apparent distress HEENT: Atraumatic, PERRLA, EOMI, Normocephalic Oral: Moist Mucosa Neck: Supple, No JVD Lungs: No rhonchi, No rales, Diminished, Wheezes Cardiovascular: Regular rate, Regular Rhythm, Normal S1, Normal S2, No murmurs Abdomen: Soft, Non Tender, Non-Distended, No Hepato-splenomegaly Extremities: No edema, Capillary Refill Less than 3 Seconds Skin: No rashes, No breakdown Neurological: Neuro grossly intact, Sensory exam intact to light touch and pain Psych/Mental Status: Normal Affect, Appropriate Assessment & Plan Assessment/Plan (1) Acute respiratory failure: Status: Acute Code(s): J96.00 - Acute respiratory failure, unspecified whether with hypoxia or hypercapnia Qualifiers: Respiratory failure complication: hypoxia and hypercapnia Qualified Code(s): J96.01 - Acute respiratory failure with hypoxia; J96.02 - Acute respiratory failure with hypercapnia (2) COPD exacerbation: Status: Acute Code(s): J44.1 - Chronic obstructive pulmonary disease with (acute) exacerbation (3) Hypotensive episode: Status: Acute Code(s): I95.9 - Hypotension, unspecified (4) NSTEMI (non-ST elevated myocardial infarction): Status: Acute Code(s): I21.4 - Non-ST elevation (NSTEMI) myocardial infarction (5) COPD with acute exacerbation: Status: Chronic Code(s): J44.1 - Chronic obstructive pulmonary disease with (acute) exacerbation (6) Sleep apnea in adult: Status: Chronic Code(s): G47.30 - Sleep apnea, unspecified (7) HTN (hypertension): Status: Chronic Code(s): I10 - Essential (primary) hypertension Qualifiers: Hypertension type: essential hypertension Qualified Code(s): I10 - Essential (primary) hypertension Plan: 1. Shock of unknown etiology/acute hypoxic and hypercapnic respiratory failure secondary to acute COPD exacerbation/BARBIE/continued tobacco abuse -Continue with oxygen via nasal cannula, she is currently down to 6 L -Wean pressors as able -Appreciate criminal justice social worker assistance -We will plan to discontinue Levaquin in another 24 to 48 hours -Continue with steroids and inhalers -Encourage cessation of tobacco products 2. Non-STEMI/HTN/HLD -Consult to cardiology, based on her renal insufficiency as well as her hypoxia, this was felt to be the cause of her elevated troponin -No aggressive cardiac intervention, will discuss with cardiology about discontinuation of her heparin drip -We will hold her home blood pressure medication secondary to her hypotension continue with pressors -Continue with statin 3. CKD 3b -Creatinine is at baseline -Continue to monitor 4. Seizure disorder -Stable -Continue with her home phenytoin, will follow up level 5. History of cervical cancer and colon cancer -She is status post a RADHA with BSO as well as a partial colectomy -Both are in remission 6. Graves' disease -Stable -Continue with methimazole 7. GERD -Stable -Continue with PPI DVT: Heparin Inpatient E&M: [id number] Subs Hosp L2
[2020-09-15] MEDS: Heparin Injection (Vial) 5,000 UNIT/ML VIAL IV (09:50)
[2020-09-15] MEDS: Phenytoin Na 100 MG Capsule PO ×2 (09:53→21:23)
[2020-09-15] MEDS: ALPRAZolam 0.5 MG Tablet PO ×2 (09:53→17:35)
[2020-09-15] MEDS: Aspirin 81 MG TAB.CHEW PO (09:53)
[2020-09-15] MEDS: Pantoprazole Sodium 40 MG Tablet PO (09:54)
[2020-09-15] MEDS: Methimazole 5 MG Tablet 2.5 MG PO (09:54)
--- NOTE | 2020-09-15 10:06 | PCM.PN.INT ---
Subjective Subjective: Patient did well overnight. Patient was able to be taken off of Levophed overnight and blood pressures have tolerated well. Patient has had highly sporadic oxygen requirements, but was able to make it to baseline FiO2. Patient has responded to aerosol therapy. No bleeding complications have been reported by the patient or nursing. Patient with chronic pain only. Objective Data Objective Data Vital Signs: Vital Signs Temp Pulse Resp BP Pulse Ox 37.0 C 98 24 H 110/87 H 98 09/15/20 00:00 09/15/20 08:00 09/15/20 06:21 09/15/20 00:58 09/15/20 08:00 Oxygen Flow Rate (L/min) 6 Oxygen Delivery Method Nasal Cannula Weight: 56.3 kg Body Mass Index (BMI) 22.1 Intake & Output: Intake and Output for Last 24 Hours 09/13/20 09/14/20 09/15/20 23:59 23:59 23:59 Intake Total 8.93 / 15.98 3440.92 / 3448.42 1012.91 / 1012.91 Output Total 1125 / 1375 250 / 250 Balance 8.93 / 15.98 2315.92 / 2073.42 762.91 / 762.91 Lab / Micro Data Result Diagrams: 09/15/20 04:25 09/15/20 04:25 Labs: Laboratory Results - last 24 hr 09/14/20 09/14/20 09/15/20 15:50 23:10 04:25 APTT 22.1 L 113.3 H* Sodium 140 Potassium 4.4 Chloride 107 Carbon Dioxide 29.0 Anion Gap 4 L BUN 24 H Creatinine 1.97 H Estim Creat Clear Calc 18.61 Est GFR (MDRD) Af Amer TNP Est GFR (MDRD) Non-Af TNP BUN/Creatinine Ratio 12.2 Glucose 161 H Calcium 7.0 L Phosphorus 3.6 Magnesium 1.4 L 09/15/20 07:40 APTT 27.5 Sodium Potassium Chloride Carbon Dioxide Anion Gap BUN Creatinine Estim Creat Clear Calc Est GFR (MDRD) Af Amer Est GFR (MDRD) Non-Af BUN/Creatinine Ratio Glucose Calcium Phosphorus Magnesium Micro: Microbiology 09/13/20 15:00 Sputum, Expectorated/Coughed Gram Stain - Preliminary 09/13/20 23:25 Mucosa - Nasopharyngeal Respiratory Panel (PCR) - Final 09/14/20 00:20 Urine Catheter - Leavitt Legionella Antigen - Final 09/14/20 00:20 Urine Catheter - Leavitt Streptococcus pneumoniae Antigen (M - Final Radiography Diagnostic Testing: Radiology Impression Echocardiogram 09/13/20 20:57 Interpretation Summary Preserved LV systolic function EF 50-55% Ordering Physician: Precious Osorio Referring Physician: Mariangel Kulkarni Performed By: Nicolás Pickens RCS Venous Doppler Study 09/14/20 01:54 Interpretation Summary No evidence for acute deep venous thrombosis bilateral lower extremities with patent and compressible bilateral great saphenous veins. Pulsatile venous flow noted bilaterally consistent with proximal venous hypertension or obstruction. Clinical correlation would be indicated. It is noted that the exam was felt to be technically difficult Ordering Physician: Precious Osorio Referring Physician: Mariangel Kulkarni Performed By: Eileen Brown RDCS, RVT Physical Exam Const alert, oriented x3 and no apparent distress Constitutional Narrative: Intermittently cooperative. Hard of hearing. General Appearance: well developed and frail HEENT normocephalic and head/scalp atraumatic General Ear: hearing grossly impaired Mouth: oral and palatal mucosa normal Eyes PERRL, EOMs intact bilaterally, conjunctivae normal and no scleral icterus Neck full ROM Lymph Lymphatic: no lymphadenopathy noted Chest Chest Narrative: Increased AP diameter Resp Effort and Inspection: prolonged expiratory phase; Negative for actively coughing or uses accessory muscles Auscultation: diminished lung sounds; Negative for rales, rhonchi or wheezes Cardio regular rate, regular rhythm, S1 normal heart sound, no murmurs, no rub, no gallops and no JVD; Negative for S2 normal heart sound GI normal to inspection, nondistended, normoactive bowel sounds Extremity General Extremity: clubbing; Negative for edema Skin no rashes or lesions noted Skin Narrative: Dermal atrophy noted. Neuro oriented x3 and CN's II-XII intact bilaterally Psych Activity / Motor Behavior: restless Mood & Affect: anxious and flat affect Assessment & Plan Assessment/Plan (1) Hypotensive episode: Status: Acute Code(s): I95.9 - Hypotension, unspecified (2) Acute and chronic respiratory failure with hypoxia: Status: Chronic Code(s): J96.21 - Acute and chronic respiratory failure with hypoxia (3) Sleep apnea in adult: Status: Chronic Code(s): G47.30 - Sleep apnea, unspecified (4) HTN (hypertension): Status: Chronic Code(s): I10 - Essential (primary) hypertension Qualifiers: Hypertension type: essential hypertension Qualified Code(s): I10 - Essential (primary) hypertension (5) CKD (chronic kidney disease) stage 3, GFR 30-59 ml/min: Status: Chronic Code(s): N18.30 - Chronic kidney disease, stage 3 unspecified Qualifiers: Chronic kidney disease stage 3 subtype: stage 3b (GFR 30-44) Qualified Code(s): N18.32 - Chronic kidney disease, stage 3b (6) Elevated troponin level: Status: Acute Code(s): R77.8 - Other specified abnormalities of plasma proteins (7) Pulmonary embolism: Status: Suspected Code(s): I26.99 - Other pulmonary embolism without acute cor pulmonale Qualifiers: Pulmonary embolism type: single subsegmental (without acute cor pulmonale) Qualified Code(s): I26.93 - Single subsegmental pulmonary embolism without acute cor pulmonale Plan: RECOMMENDATIONS: 1. Continue empiric antibiotics pending culture data 2. Consider hematology consult for anticoagulation 3. Possibly reinitiate antihypertensives in a stepwise fashion per cardiology 4. Continue baseline antiepileptic therapy 5. Okay to leave the intensive care unit from my perspective IMPRESSIONS: 1. Severe hypotension requiring pressor therapy Unclear etiology at this time. Patient may have taken extra antihypertensive medications. Patient does not have an acute infiltrate on chest x-ray. Reasonable to continue with empiric antibiotics for now, but these can likely be discontinued at 48 hours of culture negative. Patient is on Solu-Medrol, so adrenal insufficiency is unlikely. Resolution over 24 hours is suggestive of possible unintentional overdose of antihypertensive medications. Defer to cardiology on reinitiation 2. Acute on chronic combined respiratory failure secondary to COPD exacerbation Patient appears to have significant COPD. Unclear who primary detector car operator is at this time. We will continue with Solu-Medrol, duo nebs and antibiotics. Cultures have been obtained. Patient may also have an element of CHF. Cardiology has been consulted. Wean oxygen as tolerated. There is also a concern for possible pulmonary emboli. Lower extremity Dopplers are negative, but pulmonary artery pressure is elevated on echocardiogram with mild to moderate global right ventricular dysfunction. Unclear if this is secondary to underlying pulmonary pathology with chronic respiratory failure versus possible PE. Could obtain a VQ scan. Patient will not qualify for a 10 a inhibitor secondary to need for Dilantin. Could consider a hematology consult for recommendations. 3. Elevated troponin Unclear if elevated troponin is secondary to a primary cardiac event versus global hypoxia. Continue to support oxygenation. Cardiology has been consulted. 4. Chronic kidney disease stage III/seizure disorder/hypertension/hyperlipidemia/history of multiple cancers/BARBIE/tobacco abuse/Graves' disease Complicates care, management, recovery and prognosis. Noncompliant with BARBIE therapy at this time. Stressed the importance of smoking cessation. Some concern for patient's ability to comply with home medications. May benefit from dosing service. Case management/social work to follow Inpatient E&M: [id number] [facility] L[facility]
[2020-09-15] MEDS: Magnesium Sulfate 4gm/100mL 4 GM/100 ML IV.SOLN. IV (10:13)
[2020-09-15 10:40] LABS: Hematocrit 33.6 % (37-47); Hemoglobin 10.4 g/dL (12.0-15.0); Mean Corpuscular Hgb 32.7 pg (27.0-32.0); Mean Corpuscular Volume 105.7 fL (81-99); Red Blood Count 3.18 M/mm3 (4.2-5.4)
[2020-09-15 10:41] LABS: Differential Indicated SCAN CRITERIA MET; Lymphocyte % 6.6 % (19-41); Mean Platelet Vol. 9.6 fl (6.2-12.0); Neutrophil % 85.2 % (47-70); POSITIVE DIFFERENTIAL YES; Platelet Count 150 K/mm3 (150-450); RBC Distribution Width CV 13.3 % (11.6-14.6); RBC Distribution Width SD 52.3 fl (35.1-43.9)
[2020-09-15 10:42] LABS: Absolute Lymphocyte Count 0.33 X10^3/uL (0.83-4.51); Absolute Neutrophil Count 4.3 X10^3/uL (2.0-7.7); Eosinophils% 0.2 % (0-5); Lymphocyte # 0.33 X10^3/ul (0.83-4.51); Neutrophil # 4.29 X10^3/uL (2.7-7.7)
[2020-09-15 10:43] LABS: Differential Comment SCANNED; NRBC Flagged by Analyzer 0 % (0-5)
--- NOTE | 2020-09-15 11:10 | CASEMGMT ---
SW spoke w/pt in room in regard to discharge plan. Pt adamant will go to her daughter's home from here. SW inquired how she will manage the stairs, as her home is a flight up. Pt states she will manage, she has done it before. She states in the past would take a break and sit down half-way through. Pt states her daughter also will help her, and that she is small but mighty. SW inquired if pt would want to consider rehab in a jail facility for a short time prior to going to her daughter's, considering how short of breath she has been. SW explained that her daughter will help her, she is not agreeable to SNF placement at this time. SW will remain available should pt at some point be in agreement with fdc placement. ROMEL Reid
--- NOTE | 2020-09-15 13:05 | PCM.PN.CARD ---
Subjective Subjective: Patient still having symptoms of shortness of breath she does not have any symptoms of active chest pain. Very hard of hearing. Objective Data Objective Data Vital Signs: Vital Signs Temp Pulse Resp BP Pulse Ox 98.6 F 110 H 27 H 97/72 97 09/15/20 00:00 09/15/20 11:02 09/15/20 10:00 09/15/20 11:02 09/15/20 11:02 Oxygen Flow Rate (L/min) 4 Oxygen Delivery Method Nasal Cannula Weight: 124 lb 1.924 oz Body Mass Index (BMI) 22.1 Intake & Output: Intake and Output for Last 24 Hours 09/13/20 09/14/20 09/15/20 23:59 23:59 23:59 Intake Total 8.93 / 15.98 3440.92 / 3448.42 1012.91 / 1012.91 Output Total 1125 / 1375 1350 / 1350 Balance 8.93 / 15.98 2315.92 / 2073.42 -337.09 / -337.09 Lab / Micro Data Result Diagrams: 09/15/20 04:25 09/15/20 04:25 Labs: Laboratory Results - last 24 hr 09/14/20 09/14/20 09/15/20 15:50 23:10 04:25 WBC 5.0 RBC 3.18 L Hgb 10.4 L Hct 33.6 L MCV 105.7 H MCH 32.7 H MCHC 31.0 L RDW Std Deviation 52.3 H RDW Coeff of Avelino 13.3 Plt Count 150 MPV 9.6 Immature Gran % (Auto) 2.000 H Neut % (Auto) 85.2 H Lymph % (Auto) 6.6 L [place] % (Auto) 6.0 Eos % (Auto) 0.2 Baso % (Auto) 0.0 Absolute Neuts (auto) 4.3 Absolute Lymphs (auto) 0.33 L Nucleated RBC % 0 Differential Comment SCANNED APTT 22.1 L 113.3 H* Sodium Potassium Chloride Carbon Dioxide Anion Gap BUN Creatinine Estim Creat Clear Calc Est GFR (MDRD) Af Amer Est GFR (MDRD) Non-Af BUN/Creatinine Ratio Glucose Calcium Phosphorus Magnesium 09/15/20 09/15/20 04:25 07:40 WBC RBC Hgb Hct MCV MCH MCHC RDW Std Deviation RDW Coeff of Avelino Plt Count MPV Immature Gran % (Auto) Neut % (Auto) Lymph % (Auto) [place] % (Auto) Eos % (Auto) Baso % (Auto) Absolute Neuts (auto) Absolute Lymphs (auto) Nucleated RBC % Differential Comment APTT 27.5 Sodium 140 Potassium 4.4 Chloride 107 Carbon Dioxide 29.0 Anion Gap 4 L BUN 24 H Creatinine 1.97 H Estim Creat Clear Calc 18.61 Est GFR (MDRD) Af Amer TNP Est GFR (MDRD) Non-Af TNP BUN/Creatinine Ratio 12.2 Glucose 161 H Calcium 7.0 L Phosphorus 3.6 Magnesium 1.4 L Micro: Microbiology 09/13/20 15:00 Sputum, Expectorated/Coughed Gram Stain - Final 09/13/20 15:00 Sputum, Expectorated/Coughed Respiratory Culture - Preliminary Appears to be normal respiratory pam. Further studies to follow. 09/13/20 23:25 Mucosa - Nasopharyngeal Respiratory Panel (PCR) - Final 09/14/20 00:20 Urine Catheter - Leavitt Legionella Antigen - Final 09/14/20 00:20 Urine Catheter - Leavitt Streptococcus pneumoniae Antigen (M - Final Radiography Diagnostic Testing: Radiology Impression Echocardiogram 09/13/20 20:57 Interpretation Summary Preserved LV systolic function EF 50-55% Ordering Physician: Precious Osorio Referring Physician: Mariangel Kulkarni Performed By: Nicolás Pickens RCS Venous Doppler Study 09/14/20 01:54 Interpretation Summary No evidence for acute deep venous thrombosis bilateral lower extremities with patent and compressible bilateral great saphenous veins. Pulsatile venous flow noted bilaterally consistent with proximal venous hypertension or obstruction. Clinical correlation would be indicated. It is noted that the exam was felt to be technically difficult Ordering Physician: Precious Osorio Referring Physician: Mariangel Kulkarni Performed By: Eileen Brown, RDCS, RVT Physical Exam Const alert and oriented x3 Eyes PERRL Neck supple and no JVD Resp Auscultation: wheezes lower bilaterally Cardio regular rhythm, S1 normal heart sound, S2 normal heart sound, no murmurs and no rub Rhythm: regular rhythm 09/14/20 15:50: APTT 22.1 L 09/14/20 23:10: APTT 113.3 H* 09/15/20 04:25: WBC 5.0, RBC 3.18 L, Hgb 10.4 L, Hct 33.6 L, MCV 105.7 H, MCH 32.7 H, MCHC 31.0 L, Plt Count 150, MPV 9.6, Immature Gran % (Auto) 2.000 H, Neut % (Auto) 85.2 H, Lymph % (Auto) 6.6 L, [place] % (Auto) 6.0, Eos % (Auto) 0.2, Baso % (Auto) 0.0, Absolute Neuts (auto) 4.3, Nucleated RBC % 0 09/15/20 04:25: Sodium 140, Potassium 4.4, Chloride 107, Carbon Dioxide 29.0, Anion Gap 4 L, BUN 24 H, Creatinine 1.97 H, Est GFR (MDRD) Af Amer TNP, Est GFR (MDRD) Non-Af TNP, BUN/Creatinine Ratio 12.2, Glucose 161 H, Calcium 7.0 L, Phosphorus 3.6, Magnesium 1.4 L 09/15/20 07:40: APTT 27.5 Rhythm: Normal sinus EKG: Normal sinus rhythm with no significant ST?T abnormality noted. ECHO: EF 50-55% mild to moderately enlarged RV Assessment & Plan Assessment/Plan (1) NSTEMI (non-ST elevated myocardial infarction): Status: Acute Code(s): I21.4 - Non-ST elevation (NSTEMI) myocardial infarction (2) COPD exacerbation: Status: Acute Code(s): J44.1 - Chronic obstructive pulmonary disease with (acute) exacerbation (3) Acute respiratory failure: Status: Acute Code(s): J96.00 - Acute respiratory failure, unspecified whether with hypoxia or hypercapnia Qualifiers: Respiratory failure complication: hypoxia and hypercapnia Qualified Code(s): J96.01 - Acute respiratory failure with hypoxia; J96.02 - Acute respiratory failure with hypercapnia Plan: The patient is a 80 year old F, Patient has chronic hypoxic respiratory failure with longstanding history of COPD.Patient continues to smoke daily. ? Cardiac consultation requested because of mild elevation of high sensitive troponin I. Patient denied any prior cardiac history in particular no history of bypass surgery, no history of coronary artery stenting or prior KS.Patient status is DNR Referred over here to [facility] as a direct admission Progressive worsening of her symptoms with hypotension, Seen today at bedside along with the nursing staff.No symptoms of chest pain reported she is on low-dose Levophed maintaining a systolic blood pressure of around 95 mmHg. The monitoring and evaluation advisor showed underlying normal sinus rhythm.Patient has history of colon cancer with History of colon? resection, Other medical problem include history of sleep apnea, GERD Recommendations; 1.? I reviewed all the current medication will hold the lisinopril beta-alena and amlodipine due to the hypotension 2.? We will continue on low-dose Levophed. 3.? Patient clinical presentation is COPD with acute exacerbation and acute on chronic hypoxic respiratory failure. Patient has no active chest pain the mild elevation of cardiac biomarkers is secondary to renal insufficiency as well as Chronic hypoxic respiratory failure. 4.? Patient is not a candidate for cardiac catheterization status of the patient is DNR. 5.? The electrocardiogram revealed underlying normal sinus rhythm Echocardiographic evaluation noted with the LV function ejection fraction in the range of 50-55%, mild to moderately enlarged RV secondary to longstanding chronic obstructive pulmonary disease./COPD. From cardiac standpoint recommendation is medical therapy, not a candidate for invasive cardiac evaluation, patient is status is DNR.
--- NOTE | 2020-09-15 13:52 | NURSING ---
pt transferred per bed & o2 with belongings to room 117, message left for family to call so they could be informed of room number
--- NOTE | 2020-09-15 13:58 | NURSING ---
family aware of pt transferring to room 117
[2020-09-15 16:12] LABS: Partial Thromboplast Time 42.1 Seconds (24.1-36.2)
[2020-09-15] MEDS: Albuterol 2.5 MG/3 ML VIAL.NEB. INHALATION (17:39)
[2020-09-15] MEDS: hydrALAZINE 20 MG/ML Vial 10 MG IV (21:01)
[2020-09-15] MEDS: MELATONIN 3 MG TABLET PO (21:02)
[2020-09-15] MEDS: Atorvastatin Calcium 20 MG Tablet PO (21:02)
[2020-09-15] MEDS: 0.9% Saline Lock 10 ML Syringe IV (21:02)
[2020-09-16] VITALS (22 sets, daily range): BP systolic 108–198; BP diastolic 68–108; PULSE 56–146; RESP 16–40; TEMP 36.2–36.9; O2SAT 5–100
[2020-09-16 00:02] LABS: Partial Thromboplast Time 35.5 Seconds (24.1-36.2)
[2020-09-16] MEDS: HEPARIN/D5w 25,000 UNITS 25,000 UNITS/250 ML IV.SOLN. 9 UNITS IV (00:48)
[2020-09-16] MEDS: Heparin Injection (Vial) 5,000 UNIT/ML VIAL IV (00:50)
[2020-09-16] MEDS: 0.9% Saline Lock 10 ML Syringe IV (03:19)
[2020-09-16] MEDS: hydrALAZINE 20 MG/ML Vial 10 MG IV ×2 (03:19→08:10)
[2020-09-16] MEDS: ALPRAZolam 0.5 MG Tablet PO ×2 (04:17→20:32)
[2020-09-16] MEDS: Albuterol 2.5 MG/3 ML VIAL.NEB. INHALATION (04:20)
[2020-09-16 07:01] LABS: Partial Thromboplast Time 102.9 Seconds (24.1-36.2)
--- NOTE | 2020-09-16 07:06 | NURSING ---
ptt 102.9- stopped heparin drip (will restart at 0800), decrease from 9 ml/hr to 7 ml/hr
--- NOTE | 2020-09-16 10:00 | PCM.PN.INT ---
Subjective Subjective: Patient did well overnight. Patient is not reporting any shortness of breath at rest. Patient on baseline nasal cannula oxygen. No bleeding has been reported. Patient has had some tachycardia and hypertension. Objective Data Objective Data Vital Signs: Vital Signs Temp Pulse Resp BP Pulse Ox 36.3 C L 110 H 20 H 198/108 H 98 09/16/20 09:17 09/16/20 09:17 09/16/20 09:17 09/16/20 09:17 09/16/20 09:17 Oxygen Flow Rate (L/min) 6 Oxygen Delivery Method Nasal Cannula Weight: 57.9 kg Body Mass Index (BMI) 22.1 Intake & Output: Intake and Output for Last 24 Hours 09/14/20 09/15/20 09/16/20 23:59 23:59 23:59 Intake Total 3440.92 / 3448.42 1790.41 / 1790.41 162.9 / 162.9 Output Total 1125 / 1375 4900 / 4900 600 / 600 Balance 2315.92 / 2073.42 -3109.59 / -3109.59 -437.1 / -437.1 Lab / Micro Data Result Diagrams: 09/15/20 04:25 09/15/20 04:25 Labs: Laboratory Results - last 24 hr 09/15/20 09/15/20 09/15/20 04:25 15:33 23:15 WBC 5.0 RBC 3.18 L Hgb 10.4 L Hct 33.6 L MCV 105.7 H MCH 32.7 H MCHC 31.0 L RDW Std Deviation 52.3 H RDW Coeff of Avelino 13.3 Plt Count 150 MPV 9.6 Immature Gran % (Auto) 2.000 H Neut % (Auto) 85.2 H Lymph % (Auto) 6.6 L [place] % (Auto) 6.0 Eos % (Auto) 0.2 Baso % (Auto) 0.0 Absolute Neuts (auto) 4.3 Absolute Lymphs (auto) 0.33 L Nucleated RBC % 0 Differential Comment SCANNED APTT 42.1 H 35.5 09/16/20 06:38 WBC RBC Hgb Hct MCV MCH MCHC RDW Std Deviation RDW Coeff of Avelino Plt Count MPV Immature Gran % (Auto) Neut % (Auto) Lymph % (Auto) [place] % (Auto) Eos % (Auto) Baso % (Auto) Absolute Neuts (auto) Absolute Lymphs (auto) Nucleated RBC % Differential Comment APTT 102.9 H* Micro: Microbiology 09/13/20 15:00 Sputum, Expectorated/Coughed Gram Stain - Final 09/13/20 15:00 Sputum, Expectorated/Coughed Respiratory Culture - Preliminary Appears to be normal respiratory pam. Further studies to follow. 09/13/20 23:25 Mucosa - Nasopharyngeal Respiratory Panel (PCR) - Final 09/14/20 00:20 Urine Catheter - Leavitt Legionella Antigen - Final 09/14/20 00:20 Urine Catheter - Leavitt Streptococcus pneumoniae Antigen (M - Final Physical Exam Const alert, oriented x3 and no apparent distress Constitutional Narrative: Intermittently cooperative. Hard of hearing. General Appearance: well developed and frail HEENT normocephalic and head/scalp atraumatic Eyes PERRL, EOMs intact bilaterally, conjunctivae normal and no scleral icterus Neck full ROM Lymph Lymphatic: no lymphadenopathy noted Chest Chest Narrative: Increased AP diameter Resp Effort and Inspection: prolonged expiratory phase; Negative for actively coughing or uses accessory muscles Auscultation: diminished lung sounds; Negative for rales, rhonchi or wheezes Cardio regular rate, regular rhythm, S1 normal heart sound, no murmurs, no rub, no gallops and no JVD; Negative for S2 normal heart sound GI normal to inspection, nondistended, normoactive bowel sounds Extremity General Extremity: clubbing; Negative for edema Skin no rashes or lesions noted Skin Narrative: Dermal atrophy noted. Neuro oriented x3 and CN's II-XII intact bilaterally Psych Activity / Motor Behavior: restless Mood & Affect: anxious and flat affect Assessment & Plan Assessment/Plan (1) Hypotensive episode: Status: Acute Code(s): I95.9 - Hypotension, unspecified (2) Acute and chronic respiratory failure with hypoxia: Status: Chronic Code(s): J96.21 - Acute and chronic respiratory failure with hypoxia (3) Sleep apnea in adult: Status: Chronic Code(s): G47.30 - Sleep apnea, unspecified (4) HTN (hypertension): Status: Chronic Code(s): I10 - Essential (primary) hypertension Qualifiers: Hypertension type: essential hypertension Qualified Code(s): I10 - Essential (primary) hypertension (5) CKD (chronic kidney disease) stage 3, GFR 30-59 ml/min: Status: Chronic Code(s): N18.30 - Chronic kidney disease, stage 3 unspecified Qualifiers: Chronic kidney disease stage 3 subtype: stage 3b (GFR 30-44) Qualified Code(s): N18.32 - Chronic kidney disease, stage 3b (6) Elevated troponin level: Status: Resolved Code(s): R77.8 - Other specified abnormalities of plasma proteins (7) Pulmonary embolism: Status: Ruled-out Code(s): I26.99 - Other pulmonary embolism without acute cor pulmonale Qualifiers: Pulmonary embolism type: single subsegmental (without acute cor pulmonale) Qualified Code(s): I26.93 - Single subsegmental pulmonary embolism without acute cor pulmonale Plan: RECOMMENDATIONS: 1. Okay to transition to prednisone therapy and complete a 12 to 14-day taper 2. Okay to discontinue anticoagulation from my perspective 3. Reinitiate antihypertensives in a stepwise fashion per cardiology 4. Continue baseline antiepileptic therapy 5. Walking oximetry prior to discharge IMPRESSIONS: 1. Severe hypotension requiring pressor therapy Unclear etiology at this time. Patient may have taken extra antihypertensive medications. Patient does not have an acute infiltrate on chest x-ray. Reasonable to continue with empiric antibiotics for now, but these can likely be discontinued at 48 hours of culture negative. Patient is on Solu-Medrol, so adrenal insufficiency is unlikely. Resolution over 24 hours is suggestive of possible unintentional overdose of antihypertensive medications. Defer to cardiology on reinitiation of antihypertensives. Patient severely hypertensive overnight 2. Acute on chronic combined respiratory failure secondary to COPD exacerbation Patient appears to have significant COPD. Unclear who primary workforce advisor is at this time. We will continue with Solu-Medrol, duo nebs and antibiotics. Cultures have been obtained. Patient may also have an element of CHF. Cardiology has been consulted. Wean oxygen as tolerated. It does not appear the patient has a pulmonary emboli. Lower extremity Dopplers are negative, but pulmonary artery pressure is elevated on echocardiogram with mild to moderate global right ventricular dysfunction. Unclear if this is secondary to underlying pulmonary pathology with chronic respiratory failure versus possible PE. Reasonable to discontinue anticoagulation from my perspective 3. Elevated troponin Unclear if elevated troponin is secondary to a primary cardiac event versus global hypoxia. Continue to support oxygenation. Cardiology has been consulted. 4. Chronic kidney disease stage III/seizure disorder/hypertension/hyperlipidemia/history of multiple cancers/BARBIE/tobacco abuse/Graves' disease Complicates care, management, recovery and prognosis. Noncompliant with BARBIE therapy at this time. Stressed the importance of smoking cessation. Some concern for patient's ability to comply with home medications. May benefit from dosing service to avoid unintentional overdose. Case management/social work to follow Inpatient E&M: [id number] [facility] L3
[2020-09-16] MEDS: Phenytoin Na 100 MG Capsule PO ×2 (10:20→21:36)
[2020-09-16] MEDS: Aspirin 81 MG TAB.CHEW PO (10:20)
[2020-09-16] MEDS: Pantoprazole Sodium 40 MG Tablet PO (10:25)
[2020-09-16] MEDS: Methimazole 5 MG Tablet 2.5 MG PO (10:25)
--- NOTE | 2020-09-16 12:01 | PN.CARD_ITS ---
Subjective Subjective: Symptoms of shortness of breath is improving. No active symptoms of chest pain reported Objective Data Objective Data Vital Signs: Vital Signs Temp Pulse Resp BP Pulse Ox 97.3 F L 110 H 20 H 198/108 H 98 09/16/20 09:17 09/16/20 09:17 09/16/20 09:17 09/16/20 09:17 09/16/20 09:17 Oxygen Flow Rate (L/min) 6 Oxygen Delivery Method Nasal Cannula Weight: 127 lb 10.362 oz Body Mass Index (BMI) 22.1 Intake & Output: Intake and Output for Last 24 Hours 09/14/20 09/15/20 09/16/20 23:59 23:59 23:59 Intake Total 3440.92 / 3448.42 1790.41 / 1790.41 162.9 / 162.9 Output Total 1125 / 1375 4900 / 4900 600 / 600 Balance 2315.92 / 2073.42 -3109.59 / -3109.59 -437.1 / -437.1 Lab / Micro Data Result Diagrams: 09/15/20 04:25 09/15/20 04:25 Labs: Laboratory Results - last 24 hr 09/15/20 09/15/20 09/16/20 15:33 23:15 06:38 APTT 42.1 H 35.5 102.9 H* Micro: Microbiology 09/13/20 15:00 Sputum, Expectorated/Coughed Gram Stain - Final 09/13/20 15:00 Sputum, Expectorated/Coughed Respiratory Culture - Preliminary Appears to be normal respiratory pam. Further studies to follow. 09/13/20 23:25 Mucosa - Nasopharyngeal Respiratory Panel (PCR) - Final 09/14/20 00:20 Urine Catheter - Leavitt Legionella Antigen - Final 09/14/20 00:20 Urine Catheter - Leavitt Streptococcus pneumoniae Antigen (M - Final Physical Exam Const alert and oriented x3 Eyes PERRL Neck supple and no JVD Resp Auscultation: wheezes lower bilaterally Cardio regular rhythm, S1 normal heart sound, S2 normal heart sound, no murmurs and no rub Rhythm: regular rhythm Assessment & Plan Assessment/Plan (1) NSTEMI (non-ST elevated myocardial infarction): Status: Acute Code(s): I21.4 - Non-ST elevation (NSTEMI) myocardial infarction (2) COPD exacerbation: Status: Acute Code(s): J44.1 - Chronic obstructive pulmonary disease with (acute) exacerbation (3) Acute respiratory failure: Status: Acute Code(s): J96.00 - Acute respiratory failure, unspecified whether with hypoxia or hypercapnia Qualifiers: Respiratory failure complication: hypoxia and hypercapnia Qualified Code(s): J96.01 - Acute respiratory failure with hypoxia; J96.02 - Acute respiratory failure with hypercapnia Plan: The patient is a 80 year old F, Patient has chronic hypoxic respiratory failure with longstanding history of COPD.Patient continues to smoke daily. ? Cardiac consultation requested because of mild elevation of high sensitive troponin I. Patient denied any prior cardiac history in particular no history of bypass surgery, no history of coronary artery stenting or prior AL.Patient status is DNR Referred over here to [facility] as a direct admission Progressive worsening of her symptoms with hypotension, Seen today at bedside along with the nursing staff.No symptoms of chest pain reported she is on low- dose Levophed maintaining a systolic blood pressure of around 95 mmHg. The cardiac rehabilitation specialist showed underlying normal sinus rhythm.Patient has history of colon cancer with History of colon? resection, Other medical problem include history of sleep apnea, GERD Recommendations; 1.? I reviewed all the current medication will hold the lisinopril beta-alena and amlodipine due to the hypotension 2.? We will continue on low-dose Levophed. 3.? Patient clinical presentation is COPD with acute exacerbation and acute on c hronic hypoxic respiratory failure. Patient has no active chest pain the mild elevation of cardiac biomarkers is secondary to renal insufficiency as well as Chronic hypoxic respiratory failure. 4.? Patient is not a candidate for cardiac catheterization status of the patient is DNR. 5.? The electrocardiogram revealed underlying normal sinus rhythm Echocardiographic evaluation noted with the LV function ejection fraction in the range of 50-55%, mild to moderately enlarged RV secondary to longstanding chronic obstructive pulmonary disease./COPD. From cardiac standpoint recommendation is medical therapy, not a candidate for invasive cardiac evaluation, patient is status is DNR. From cardiac standpoint no further recommendations required, patient to continue follow-up as an outpatient with the cardiology team We will be available if cardiac care needed.
[2020-09-16] MEDS: cloNIDine HCl 0.2 MG Tablet PO ×2 (12:04→21:36)
[2020-09-16] MEDS: amLODIPine 10 MG Tablet PO (12:04)
[2020-09-16] MEDS: Metoprolol Tartrate 25 MG Tablet PO ×2 (12:04→21:36)
[2020-09-16] MEDS: Ipratropium 0.5 MG/2.5 ML SOLUTION INHALATION ×2 (12:21→18:49)
[2020-09-16 12:25] LABS: Allen Test Positive; Base Excess 6 mmol/L (-2 to +2); Bicarbonate 31.2 mmol/L (22-26); Blood Gas Specimen Type ART; O2 Delivery Device Cannula; PO2 83 mmHG (75-100); SITE R Brach; SO2 95 % (95-99); Total Carbon Dioxide 33 mmol/L; pCO2 55.9 mmHg (35-45); pH 7.36 (7.35-7.45)
[2020-09-16] MEDS: levoFLOXacin IV 750 MG/150 ML BAG 100 MG IV (12:42)
--- NOTE | 2020-09-16 13:25 | PN.HOSP_ITS ---
Subjective Subjective: Still feels like she has difficulty breathing, no new issues overnight. Her home oxygen requirements are on 4 L and she is currently maintaining her oxygen sat of 95% on 5 to 6 L. Objective Data Objective Data Vital Signs: Vital Signs Temp Pulse Resp BP Pulse Ox 97.4 F L 109 H 28 H 170/100 H 95 09/16/20 12:00 09/16/20 12:21 09/16/20 12:21 09/16/20 12:00 09/16/20 12:21 Oxygen Flow Rate (L/min) 5 Oxygen Delivery Method Nasal Cannula Weight: 127 lb 10.362 oz Body Mass Index (BMI) 22.1 Intake & Output: Intake and Output for Last 24 Hours 09/15/20 09/16/20 09/17/20 03:59 03:59 03:59 Intake Total 2888.58 / 2888.58 1824.0 / 1824.0 116.4 / 116.4 Output Total 1225 / 1225 4650 / 4650 600 / 600 Balance 1663.58 / 1663.58 -2826.0 / -2826.0 -483.6 / -483.6 Lab / Micro Data Result Diagrams: 09/15/20 04:25 09/15/20 04:25 Labs: Laboratory Results - last 24 hr 09/15/20 09/15/20 09/16/20 15:33 23:15 06:38 APTT 42.1 H 35.5 102.9 H* Micro: Microbiology 09/13/20 15:00 Sputum, Expectorated/Coughed Gram Stain - Final 09/13/20 15:00 Sputum, Expectorated/Coughed Respiratory Culture - Preliminary Appears to be normal respiratory pam. Further studies to follow. 09/13/20 23:25 Mucosa - Nasopharyngeal Respiratory Panel (PCR) - Final 09/14/20 00:20 Urine Catheter - Leavitt Legionella Antigen - Final 09/14/20 00:20 Urine Catheter - Leavitt Streptococcus pneumoniae Antigen (M - Final ABG Data ABG results: ABG 09/16/20 12:22 Specimen Type ART Sample Site R Brach pH 7.36 Bicarbonate Actual 31.2 H Total CO2 33 Base Excess 6 H O2 Saturation 95 ABG pCO2 55.9 H ABG pO2 83 Vishnu Test Positive O2 Delivery Device Cannula Liter Flow 5.0 Physical Exam Narrative General: Alert, Oriented x3, Cooperative, No apparent distress HEENT: Atraumatic, PERRLA, EOMI, Normocephalic Oral: Moist Mucosa Neck: Supple, No JVD Lungs: No rhonchi, No rales, Diminished, Wheezes Cardiovascular: Regular rate, Regular Rhythm, Normal S1, Normal S2, No murmurs Abdomen: Soft, Non Tender, Non-Distended, No Hepato-splenomegaly Extremities: No edema, Capillary Refill Less than 3 Seconds Skin: No rashes, No breakdown Neurological: Neuro grossly intact, Sensory exam intact to light touch and pain Psych/Mental Status: Normal Affect, Appropriate Assessment & Plan Assessment/Plan (1) Acute respiratory failure: Status: Acute Code(s): J96.00 - Acute respiratory failure, unspecified whether with hypoxia or hypercapnia Qualifiers: Respiratory failure complication: hypoxia and hypercapnia Qualified Code(s): J96.01 - Acute respiratory failure with hypoxia; J96.02 - Acute respiratory failure with hypercapnia (2) COPD exacerbation: Status: Acute Code(s): J44.1 - Chronic obstructive pulmonary disease with (acute) exacerbation (3) Hypotensive episode: Status: Resolved Code(s): I95.9 - Hypotension, unspecified (4) NSTEMI (non-ST elevated myocardial infarction): Status: Resolved Code(s): I21.4 - Non-ST elevation (NSTEMI) myocardial infarction (5) COPD with acute exacerbation: Status: Deleted Code(s): J44.1 - Chronic obstructive pulmonary disease with (acute) exacerbation (6) Sleep apnea in adult: Status: Chronic Code(s): G47.30 - Sleep apnea, unspecified (7) HTN (hypertension): Status: Acute Code(s): I10 - Essential (primary) hypertension Qualifiers: Hypertension type: essential hypertension Qualified Code(s): I10 - Essential (primary) hypertension (8) CKD (chronic kidney disease) stage 3, GFR 30-59 ml/min: Status: Chronic Code(s): N18.30 - Chronic kidney disease, stage 3 unspecified Qualifiers: Chronic kidney disease stage 3 subtype: stage 3b (GFR 30-44) Qualified Code(s): N18.32 - Chronic kidney disease, stage 3b (9) Acute and chronic respiratory failure with hypoxia: Status: Chronic Code(s): J96.21 - Acute and chronic respiratory failure with hypoxia Plan: 1. Shock of unknown etiology/acute hypoxic and hypercapnic respiratory failure secondary to acute COPD exacerbation/BARBIE/continued tobacco abuse -Continue with oxygen via nasal cannula, she is currently down to 6 L -Off of pressors -Appreciate wet milling wheel operator assistance -Discontinue Levaquin -Continue with steroids, but transition to p.o., and inhalers -Encourage cessation of tobacco products 2. Non-STEMI/HTN/HLD -Consult to cardiology, based on her renal insufficiency as well as her hypoxia, this was felt to be the cause of her elevated troponin -No aggressive cardiac intervention, will discontinue heparin drip -Note she is hypertensive, will restart her home blood pressure medications -Continue with statin 3. CKD 3b -Creatinine is at baseline -Continue to monitor 4. Seizure disorder -Stable -Continue with her home phenytoin, her phenytoin level is low and she will need to follow-up with neurology as an outpatient 5. History of cervical cancer and colon cancer -She is status post a RADHA with BSO as well as a partial colectomy -Both are in remission 6. Graves' disease -Stable -Continue with methimazole 7. GERD -Stable -Continue with PPI DVT: Heparin Inpatient E&M: [id number] Subs Hosp L2
[2020-09-16] MEDS: Heparin Injection (Vial) 5,000 UNIT/ML VIAL 5000 UNIT SC (14:11)
[2020-09-16] MEDS: MELATONIN 3 MG TABLET PO (20:32)
[2020-09-16] MEDS: Atorvastatin Calcium 20 MG Tablet PO (21:36)
[2020-09-17] VITALS (17 sets, daily range): BP systolic 124–164; BP diastolic 72–90; PULSE 70–104; RESP 18–24; TEMP 36.6–36.8; O2SAT 91–100
[2020-09-17 05:22] LABS: Absolute Lymphocyte Count 0.68 X10^3/uL (0.83-4.51); Absolute Neutrophil Count 3.1 X10^3/uL (2.0-7.7); Basophil# 0.02 X10^3/uL; Basophil% 0.4 % (0-1); Eosinophil# 0.07 X10^3/uL; Eosinophils% 1.6 % (0-5); Hematocrit 34.1 % (37-47); Hemoglobin 10.5 g/dL (12.0-15.0); Lymphocyte # 0.68 X10^3/ul (0.83-4.51); Lymphocyte % 15.1 % (19-41); Mean Corp Hgb Conc 30.8 g/dL (32-36); Mean Corpuscular Hgb 31.5 pg (27.0-32.0); Mean Corpuscular Volume 102.4 fL (81-99); Mean Platelet Vol. 9.4 fl (6.2-12.0); Monocyte# 0.54 X10^3/uL; NRBC Flagged by Analyzer 0 % (0-5); Neutrophil # 3.09 X10^3/uL (2.7-7.7); Neutrophil % 68.9 % (47-70); Platelet Count 159 K/mm3 (150-450); RBC Distribution Width CV 13.5 % (11.6-14.6); RBC Distribution Width SD 51.4 fl (35.1-43.9); Red Blood Count 3.33 M/mm3 (4.2-5.4); White Blood Count 4.5 K/mm3 (4.4-11.0)
[2020-09-17] MEDS: Heparin Injection (Vial) 5,000 UNIT/ML VIAL 5000 UNIT SC ×3 (05:31→20:28)
[2020-09-17] MEDS: ALPRAZolam 0.5 MG Tablet PO ×2 (05:31→19:16)
[2020-09-17 05:34] LABS: Anion Gap 1 (5-15); BUN 33 mg/dL (7-18); BUN/Creat Ratio 17.4 RATIO (10-20); Calcium,Total 7.8 mg/dL (8.5-10.1); Chloride 104 mmol/L (98-107); EST Glomerular Filtration Rate 27 mL/min (>60); Est Glom Filt Rate - Afr Amer 33 mL/min (>60); Glucose 109 mg/dL (74-106); Potassium 3.5 mmol/L (3.5-5.1); Sodium Level 140 mmol/L (136-145)
[2020-09-17] MEDS: Ipratropium 0.5 MG/2.5 ML SOLUTION INHALATION ×2 (06:45→19:37)
[2020-09-17] MEDS: Aspirin 81 MG TAB.CHEW PO (08:17)
[2020-09-17] MEDS: predniSONE 20 MG Tablet 40 MG PO (08:17)
[2020-09-17] MEDS: Methimazole 5 MG Tablet 2.5 MG PO (08:18)
[2020-09-17] MEDS: Metoprolol Tartrate 25 MG Tablet PO ×2 (08:18→20:29)
[2020-09-17] MEDS: cloNIDine HCl 0.2 MG Tablet PO ×2 (08:18→20:28)
[2020-09-17] MEDS: Pantoprazole Sodium 40 MG Tablet PO (08:18)
[2020-09-17] MEDS: amLODIPine 10 MG Tablet PO (08:18)
[2020-09-17] MEDS: Phenytoin Na 100 MG Capsule PO ×2 (08:19→20:28)
[2020-09-17] MEDS: Albuterol 2.5 MG/3 ML VIAL.NEB. INHALATION ×2 (08:51→19:45)
--- NOTE | 2020-09-17 09:40 | PCM.PN.INT ---
Subjective Subjective: Patient did okay overnight. Patient continues to report some dyspnea at rest and states she has not gotten out of bed much. Patient is not having much coughing. No overnight issues were reported. Patient continues to refuse any BiPAP. Objective Data Objective Data Vital Signs: Vital Signs Temp Pulse Resp BP Pulse Ox 36.8 C 77 21 H 164/90 H 100 09/17/20 08:14 09/17/20 08:51 09/17/20 08:51 09/17/20 08:14 09/17/20 08:14 Oxygen Flow Rate (L/min) 4 Oxygen Delivery Method Nasal Cannula Weight: 54.885 kg Body Mass Index (BMI) 22.1 Intake & Output: Intake and Output for Last 24 Hours 09/15/20 09/16/20 09/17/20 23:59 23:59 23:59 Intake Total 1790.41 / 1790.41 1469.32 / 1469.32 240 / 240 Output Total 4900 / 4900 2049 / 2049 150 / 150 Balance -3109.59 / -3109.59 -580.68 / -580.68 90 / 90 Lab / Micro Data Result Diagrams: 09/17/20 05:00 09/17/20 05:00 Labs: Laboratory Results - last 24 hr 09/17/20 09/17/20 05:00 05:00 WBC 4.5 RBC 3.33 L Hgb 10.5 L Hct 34.1 L MCV 102.4 H MCH 31.5 MCHC 30.8 L RDW Std Deviation 51.4 H RDW Coeff of Avelino 13.5 Plt Count 159 MPV 9.4 Immature Gran % (Auto) 2.000 H Neut % (Auto) 68.9 Lymph % (Auto) 15.1 L [place] % (Auto) 12.0 H Eos % (Auto) 1.6 Baso % (Auto) 0.4 Absolute Neuts (auto) 3.1 Absolute Lymphs (auto) 0.68 L Nucleated RBC % 0 Sodium 140 Potassium 3.5 Chloride 104 Carbon Dioxide 35.0 H Anion Gap 1 L BUN 33 H Creatinine 1.90 H Estim Creat Clear Calc 19.30 Est GFR (MDRD) Af Amer 33 L Est GFR (MDRD) Non-Af 27 L BUN/Creatinine Ratio 17.4 Glucose 109 H Calcium 7.8 L Micro: Microbiology 09/13/20 15:00 Sputum, Expectorated/Coughed Gram Stain - Final 09/13/20 15:00 Sputum, Expectorated/Coughed Respiratory Culture - Final Presumptive C albicans 09/13/20 23:25 Mucosa - Nasopharyngeal Respiratory Panel (PCR) - Final 09/14/20 00:20 Urine Catheter - Leavitt Legionella Antigen - Final 09/14/20 00:20 Urine Catheter - Leavitt Streptococcus pneumoniae Antigen (M - Final ABG Data ABG results: ABG 09/16/20 12:22 Specimen Type ART Sample Site R Brach pH 7.36 Bicarbonate Actual 31.2 H Total CO2 33 Base Excess 6 H O2 Saturation 95 ABG pCO2 55.9 H ABG pO2 83 Vishnu Test Positive O2 Delivery Device Cannula Liter Flow 5.0 Physical Exam Const alert, oriented x3 and no apparent distress Constitutional Narrative: Mostly cooperative. Hard of hearing. Appears older than stated age General Appearance: well developed and frail HEENT normocephalic and head/scalp atraumatic Eyes PERRL, EOMs intact bilaterally, conjunctivae normal and no scleral icterus Neck full ROM Lymph Lymphatic: no lymphadenopathy noted Chest Chest Narrative: Increased AP diameter Resp Effort and Inspection: prolonged expiratory phase; Negative for actively coughing or uses accessory muscles Auscultation: wheezes throughout and diminished lung sounds; Negative for rales or rhonchi Cardio regular rate, regular rhythm, S1 normal heart sound, no murmurs, no rub, no gallops and no JVD; Negative for S2 normal heart sound GI normal to inspection, nondistended, normoactive bowel sounds Extremity General Extremity: clubbing; Negative for edema Skin no rashes or lesions noted Skin Narrative: Dermal atrophy noted. Neuro oriented x3 and CN's II-XII intact bilaterally Psych Activity / Motor Behavior: restless Mood & Affect: anxious and flat affect Assessment & Plan Assessment/Plan (1) Hypotensive episode: Status: Resolved Code(s): I95.9 - Hypotension, unspecified (2) Acute and chronic respiratory failure with hypoxia: Status: Chronic Code(s): J96.21 - Acute and chronic respiratory failure with hypoxia (3) Sleep apnea in adult: Status: Chronic Code(s): G47.30 - Sleep apnea, unspecified (4) HTN (hypertension): Status: Acute Code(s): I10 - Essential (primary) hypertension Qualifiers: Hypertension type: essential hypertension Qualified Code(s): I10 - Essential (primary) hypertension (5) CKD (chronic kidney disease) stage 3, GFR 30-59 ml/min: Status: Chronic Code(s): N18.30 - Chronic kidney disease, stage 3 unspecified Qualifiers: Chronic kidney disease stage 3 subtype: stage 3b (GFR 30-44) Qualified Code(s): N18.32 - Chronic kidney disease, stage 3b (6) Elevated troponin level: Status: Resolved Code(s): R77.8 - Other specified abnormalities of plasma proteins (7) Pulmonary embolism: Status: Ruled-out Code(s): I26.99 - Other pulmonary embolism without acute cor pulmonale Qualifiers: Pulmonary embolism type: single subsegmental (without acute cor pulmonale) Qualified Code(s): I26.93 - Single subsegmental pulmonary embolism without acute cor pulmonale Plan: RECOMMENDATIONS: 1. Okay to transition to prednisone therapy and complete a 12 to 14-day taper. Okay to use albuterol every 2 as needed 2. Okay to discontinue anticoagulation from my perspective 3. Continue current antihypertensive medications 4. Continue baseline antiepileptic therapy 5. Walking oximetry prior to discharge 6. Follow-up with nurse practitioner 2 weeks after discharge IMPRESSIONS: 1. Severe hypotension requiring pressor therapy Unclear etiology at this time. Patient may have taken extra antihypertensive medications. Patient does not have an acute infiltrate on chest x-ray. Reasonable to continue with empiric antibiotics for now, but these can likely be discontinued at 48 hours of culture negative. Patient is on Solu-Medrol, so adrenal insufficiency is unlikely. Resolution over 24 hours is suggestive of possible unintentional overdose of antihypertensive medications. Blood pressure appears to be well controlled at this time 2. Acute on chronic combined respiratory failure secondary to COPD exacerbation Patient appears to have significant COPD. Unclear who primary pharmacy clinical specialist is at this time. We will continue with Solu-Medrol, duo nebs and antibiotics. Cultures have been obtained. Patient may also have an element of CHF. Cardiology has been consulted. Wean oxygen as tolerated. It does not appear the patient has a pulmonary emboli. Lower extremity Dopplers are negative, but pulmonary artery pressure is elevated on echocardiogram with mild to moderate global right ventricular dysfunction. Unclear if this is secondary to underlying pulmonary pathology with chronic respiratory failure versus possible PE. Patient without indication for anticoagulation from my perspective. Patient likely has advanced lung disease, but has canceled outpatient visits and PFTs previously. Patient can follow-up with nurse practitioner in 2 weeks after discharge. 3. Elevated troponin Unclear if elevated troponin is secondary to a primary cardiac event versus global hypoxia. Continue to support oxygenation. Cardiology has been consulted. 4. Chronic kidney disease stage III/seizure disorder/hypertension/hyperlipidemia/history of multiple cancers/BARBIE/tobacco abuse/Graves' disease Complicates care, management, recovery and prognosis. Noncompliant with BARBIE therapy at this time. Stressed the importance of smoking cessation. Some concern for patient's ability to comply with home medications. May benefit from dosing service to avoid unintentional overdose. Case management/social work to follow Inpatient E&M: [id number] Subs Hosp L2
--- NOTE | 2020-09-17 12:16 | NURSING ---
While performing the 02 qualification therapy was working with patient. She was only able to walk around the end of her bed (~10 feet) and became very dyspneic, pulse ox read 91% with her 4L on. Her HR went up to 114. We had to move the chair to patient as she could not tolerate walking any further. Dr. Rao made aware.
--- NOTE | 2020-09-17 14:06 | PN.HOSP_ITS ---
Subjective Subjective: Doing about the same today, back down to her 4 L nasal cannula. She did have an ambulatory pulse ox only went down to 91% on 4 L but she was unable to walk very far. She is refusing SNF placement Objective Data Objective Data Vital Signs: Vital Signs Temp Pulse Resp BP Pulse Ox 98.2 F 72 21 H 164/90 H 91 09/17/20 08:14 09/17/20 11:03 09/17/20 08:51 09/17/20 08:14 09/17/20 11:00 Oxygen Flow Rate (L/min) [ 4 AMBULATING with Oxygen #1] Oxygen Flow Rate (L/min) 3 Oxygen Delivery Method Nasal Cannula Weight: 121 lb Body Mass Index (BMI) 22.1 Intake & Output: Intake and Output for Last 24 Hours 09/16/20 09/17/20 09/18/20 03:59 03:59 03:59 Intake Total 1824.0 / 1824.0 1422.82 / 1422.82 640 / 640 Output Total 4650 / 4650 2049 / 0 350 / 350 Balance -2826.0 / -2826.0 -627.18 / -627.18 290 / 290 Lab / Micro Data Result Diagrams: 09/17/20 05:00 09/17/20 05:00 Labs: Laboratory Results - last 24 hr 09/17/20 09/17/20 05:00 05:00 WBC 4.5 RBC 3.33 L Hgb 10.5 L Hct 34.1 L MCV 102.4 H MCH 31.5 MCHC 30.8 L RDW Std Deviation 51.4 H RDW Coeff of Avelino 13.5 Plt Count 159 MPV 9.4 Immature Gran % (Auto) 2.000 H Neut % (Auto) 68.9 Lymph % (Auto) 15.1 L [place] % (Auto) 12.0 H Eos % (Auto) 1.6 Baso % (Auto) 0.4 Absolute Neuts (auto) 3.1 Absolute Lymphs (auto) 0.68 L Nucleated RBC % 0 Sodium 140 Potassium 3.5 Chloride 104 Carbon Dioxide 35.0 H Anion Gap 1 L BUN 33 H Creatinine 1.90 H Estim Creat Clear Calc 19.30 Est GFR (MDRD) Af Amer 33 L Est GFR (MDRD) Non-Af 27 L BUN/Creatinine Ratio 17.4 Glucose 109 H Calcium 7.8 L Micro: Microbiology 09/13/20 15:00 Sputum, Expectorated/Coughed Gram Stain - Final 09/13/20 15:00 Sputum, Expectorated/Coughed Respiratory Culture - Final Presumptive C albicans 09/13/20 23:25 Mucosa - Nasopharyngeal Respiratory Panel (PCR) - Final 09/14/20 00:20 Urine Catheter - Leavitt Legionella Antigen - Final 09/14/20 00:20 Urine Catheter - Leavitt Streptococcus pneumoniae Antigen (M - Final Physical Exam Narrative General: Alert, Oriented x3, Cooperative, No apparent distress HEENT: Atraumatic, PERRLA, EOMI, Normocephalic Oral: Moist Mucosa Neck: Supple, No JVD Lungs: No rhonchi, No rales, Diminished, Wheezes Cardiovascular: Regular rate, Regular Rhythm, Normal S1, Normal S2, No murmurs Abdomen: Soft, Non Tender, Non-Distended, No Hepato-splenomegaly Extremities: No edema, Capillary Refill Less than 3 Seconds Skin: No rashes, No breakdown Neurological: Neuro grossly intact, Sensory exam intact to light touch and pain Psych/Mental Status: Normal Affect, Appropriate Assessment & Plan Assessment/Plan (1) Acute respiratory failure: Status: Acute Code(s): J96.00 - Acute respiratory failure, unspecified whether with hypoxia or hypercapnia Qualifiers: Respiratory failure complication: hypoxia and hypercapnia Qualified Code(s): J96.01 - Acute respiratory failure with hypoxia; J96.02 - Acute respiratory failure with hypercapnia (2) COPD exacerbation: Status: Acute Code(s): J44.1 - Chronic obstructive pulmonary disease with (acute) exacerbation (3) Hypotensive episode: Status: Resolved Code(s): I95.9 - Hypotension, unspecified (4) NSTEMI (non-ST elevated myocardial infarction): Status: Resolved Code(s): I21.4 - Non-ST elevation (NSTEMI) myocardial infarction (5) COPD with acute exacerbation: Status: Deleted Code(s): J44.1 - Chronic obstructive pulmonary disease with (acute) exacerbation (6) Sleep apnea in adult: Status: Chronic Code(s): G47.30 - Sleep apnea, unspecified (7) HTN (hypertension): Status: Acute Code(s): I10 - Essential (primary) hypertension Qualifiers: Hypertension type: essential hypertension Qualified Code(s): I10 - Essential (primary) hypertension (8) CKD (chronic kidney disease) stage 3, GFR 30-59 ml/min: Status: Chronic Code(s): N18.30 - Chronic kidney disease, stage 3 unspecified Qualifiers: Chronic kidney disease stage 3 subtype: stage 3b (GFR 30-44) Qualified Code(s): N18.32 - Chronic kidney disease, stage 3b (9) Acute and chronic respiratory failure with hypoxia: Status: Chronic Code(s): J96.21 - Acute and chronic respiratory failure with hypoxia Plan: 1. Shock of unknown etiology/acute hypoxic and hypercapnic respiratory failure secondary to acute COPD exacerbation/BARBIE/continued tobacco abuse -Continue with oxygen via nasal cannula, she is currently down to 4L -Off of pressors -Appreciate web development director assistance -Discontinue Levaquin -Continue with steroids, transitioned to p.o., and inhalers -Encourage cessation of tobacco products 2. Non-STEMI/HTN/HLD -Consult to cardiology, based on her renal insufficiency as well as her hypoxia, this was felt to be the cause of her elevated troponin -No aggressive cardiac intervention, off heparin drip -Note she is hypertensive, will restart her home blood pressure medications -Continue with statin 3. CKD 3b -Creatinine is at baseline -Continue to monitor 4. Seizure disorder -Stable -Continue with her home phenytoin, her phenytoin level is low and she will need to follow-up with neurology as an outpatient 5. History of cervical cancer and colon cancer -She is status post a RADHA with BSO as well as a partial colectomy -Both are in remission 6. Graves' disease -Stable -Continue with methimazole 7. GERD -Stable -Continue with PPI DVT: Heparin
--- NOTE | 2020-09-17 15:59 | CASEMGMT ---
RN CM in to pt room to discuss dc planning. Pt states she is agreeable to [facility]. She states that she will be living with her dtr in [place] directly from the hospital. She asked this CM to contact her dtr regarding address for HH. TC to dtr Jeanine, provided a list of agencies over the phone in her area that are in network for pt insurance. She states she has no preference as she is not familiar with any agencies. Asked this CM to call and see what agency would accept. TC to [facility] and [facility] who do not provide PT or OT. TC to [facility] who states they cannot take any [place] pts at this time. TC to [facility] [phone]. Spoke to accredited legal secretary who states they do accept pt insurance and would go to pt dtr address. Left vm on Mayela, [facility]'s vm with referral information to see if able to accept. Awaiting returned call.
[2020-09-17] MEDS: MELATONIN 3 MG TABLET PO (20:27)
[2020-09-17] MEDS: guaiFENesin 10 ML UDC (200MG/10ML) PO (20:28)
[2020-09-17] MEDS: Atorvastatin Calcium 20 MG Tablet PO (20:29)
[2020-09-18] VITALS (15 sets, daily range): BP systolic 97–169; BP diastolic 70–99; PULSE 70–105; RESP 20–32; TEMP 36.1–36.8; O2SAT 96–100
[2020-09-18] MEDS: guaiFENesin 10 ML UDC (200MG/10ML) PO (04:35)
[2020-09-18] MEDS: Albuterol 2.5 MG/3 ML VIAL.NEB. INHALATION (05:06)
[2020-09-18] MEDS: Ipratropium 0.5 MG/2.5 ML SOLUTION INHALATION ×4 (05:06→18:45)
[2020-09-18] MEDS: busPIRone 5 MG Tablet 7.5 MG PO ×2 (05:12→13:27)
[2020-09-18] MEDS: Heparin Injection (Vial) 5,000 UNIT/ML VIAL 5000 UNIT SC ×2 (05:12→13:27)
[2020-09-18 06:42] LABS: Anion Gap 4 (5-15); BUN 32 mg/dL (7-18); BUN/Creat Ratio 17.2 RATIO (10-20); Calcium,Total 7.8 mg/dL (8.5-10.1); Chloride 102 mmol/L (98-107); Creatinine, Serum 1.86 mg/dL (0.55-1.02); EST Glomerular Filtration Rate 28 mL/min (>60); Est Glom Filt Rate - Afr Amer 34 mL/min (>60); Estimated Creatinine Clearance 19.72 ml/min; Glucose 121 mg/dL (74-106); Potassium 3.1 mmol/L (3.5-5.1); Sodium Level 139 mmol/L (136-145)
[2020-09-18] MEDS: ALPRAZolam 0.5 MG Tablet PO ×2 (06:54→17:52)
[2020-09-18 08:11] LABS: Magnesium 1.7 mg/dL (1.6-2.6)
[2020-09-18] MEDS: cloNIDine HCl 0.2 MG Tablet PO (08:33)
[2020-09-18] MEDS: Aspirin 81 MG TAB.CHEW PO (08:33)
[2020-09-18] MEDS: amLODIPine 10 MG Tablet PO (08:33)
[2020-09-18] MEDS: Phenytoin Na 100 MG Capsule PO (08:33)
[2020-09-18] MEDS: Pantoprazole Sodium 40 MG Tablet PO (08:33)
[2020-09-18] MEDS: Methimazole 5 MG Tablet 2.5 MG PO (08:33)
[2020-09-18] MEDS: predniSONE 20 MG Tablet 40 MG PO (08:33)
[2020-09-18] MEDS: Metoprolol Tartrate 25 MG Tablet PO (08:33)
--- NOTE | 2020-09-18 08:55 | PN.CC_ITS ---
Subjective Subjective: Patient did okay overnight. Patient has not required any excess oxygen from baseline requirements. Patient has had some hypertension and reported a transient dull ache chest pain this morning. This resolved spontaneo usly was not associated with movement, diaphoresis or nausea. Objective Data Objective Data Vital Signs: Vital Signs Temp Pulse Resp BP Pulse Ox 36.4 C L 87 20 H 169/99 H 100 09/18/20 08:19 09/18/20 08:33 09/18/20 08:19 09/18/20 08:19 09/18/20 08:19 Oxygen Flow Rate (L/min) [ 4 AMBULATING with Oxygen #1] Oxygen Flow Rate (L/min) 4 Oxygen Delivery Method Nasal Cannula Weight: 56.5 kg Body Mass Index (BMI) 22.1 Intake & Output: Intake and Output for Last 24 Hours 09/16/20 09/17/20 09/18/20 23:59 23:59 23:59 Intake Total 1469.32 / 1469.32 940 / 940 150 / 150 Output Total 2049 / 2049 650 / 650 300 / 300 Balance -580.68 / -580.68 290 / 290 -150 / -150 Lab / Micro Data Result Diagrams: 09/17/20 05:00 09/18/20 05:15 Labs: Laboratory Results - last 24 hr 09/18/20 09/18/20 05:15 05:15 Sodium 139 Potassium 3.1 L Chloride 102 Carbon Dioxide 33.0 H Anion Gap 4 L BUN 32 H Creatinine 1.86 H Estim Creat Clear Calc 19.72 Est GFR (MDRD) Af Amer 34 L Est GFR (MDRD) Non-Af 28 L BUN/Creatinine Ratio 17.2 Glucose 121 H Calcium 7.8 L Magnesium 1.7 Micro: Microbiology 09/13/20 15:00 Sputum, Expectorated/Coughed Gram Stain - Final 09/13/20 15:00 Sputum, Expectorated/Coughed Respiratory Culture - Final Presumptive C albicans 09/13/20 23:25 Mucosa - Nasopharyngeal Respiratory Panel (PCR) - Final 09/14/20 00:20 Urine Catheter - [place] Legionella Antigen - Final 09/14/20 00:20 Urine Catheter - [place] Streptococcus pneumoniae Antigen (M - Final Physical Exam Const alert, oriented x3 and no apparent distress Constitutional Narrative: Mostly cooperative. Hard of hearing. Appears older than stated age General Appearance: well developed and frail HEENT normocephalic and head/scalp atraumatic Eyes PERRL, EOMs intact bilaterally, conjunctivae normal and no scleral icterus Neck full ROM Lymph Lymphatic: no lymphadenopathy noted Chest Chest Narrative: Increased AP diameter Resp Effort and Inspection: prolonged expiratory phase; Negative for actively coughing or uses accessory muscles Auscultation: diminished lung sounds; Negative for rales, rhonchi or wheezes Cardio regular rate, regular rhythm, S1 normal heart sound, no murmurs, no rub, no gallops and no JVD; Negative for S2 normal heart sound GI normal to inspection, nondistended, normoactive bowel sounds Extremity General Extremity: clubbing; Negative for edema Skin no rashes or lesions noted Skin Narrative: Dermal atrophy noted. Neuro oriented x3 and CN's II-XII intact bilaterally Psych Activity / Motor Behavior: restless Mood & Affect: anxious and flat affect Assessment & Plan Assessment/Plan (1) Hypotensive episode: Status: Resolved Code(s): I95.9 - Hypotension, unspecified (2) Acute and chronic respiratory failure with hypoxia: Status: Chronic Code(s): J96.21 - Acute and chronic respiratory failure with hypoxia (3) Sleep apnea in adult: Status: Chronic Code(s): G47.30 - Sleep apnea, unspecified (4) HTN (hypertension): Status: Acute Code(s): I10 - Essential (primary) hypertension Qualifiers: Hypertension type: essential hypertension Qualified Code(s): I10 - Essential (primary) hypertension (5) CKD (chronic kidney disease) stage 3, GFR 30-59 ml/min: Status: Chronic Code(s): N18.30 - Chronic kidney disease, stage 3 unspecified Qualifiers: Chronic kidney disease stage 3 subtype: stage 3b (GFR 30-44) Qualified Code(s): N18.32 - Chronic kidney disease, stage 3b (6) Elevated troponin level: Status: Resolved Code(s): R77.8 - Other specified abnormalities of plasma proteins (7) Pulmonary embolism: Status: Ruled-out Code(s): I26.99 - Other pulmonary embolism without acute cor pulmonale Qualifiers: Pulmonary embolism type: single subsegmental (without acute cor pulmonale) Qualified Code(s): I26.93 - Single subsegmental pulmonary embolism without acute cor pulmonale Plan: RECOMMENDATIONS: 1. Okay to transition to prednisone therapy and complete a 12 to 14-day taper. Okay to use albuterol every 2 as needed 2. Okay to discontinue anticoagulation from my perspective 3. Continue current antihypertensive medications 4. Continue baseline antiepileptic therapy 5. Walking oximetry prior to discharge 6. Follow-up with nurse practitioner 2 weeks after discharge if agreeable IMPRESSIONS: 1. Severe hypotension requiring pressor therapy Unclear etiology at this time. Patient may have taken extra antihypertensive medications. Patient does not have an acute infiltrate on chest x-ray. Reasonable to continue with empiric antibiotics for now, but these can likely be discontinued at 48 hours of culture negative. Patient is on steroids, so adrenal insufficiency is unlikely. Resolution over 24 hours is suggestive of possible unintentional overdose of antihypertensive medications. Blood pressure appears to be well controlled at this time 2. Acute on chronic combined respiratory failure secondary to COPD exacerbation Patient appears to have significant COPD. Unclear who primary procurement representative is at this time. We will continue with Solu-Medrol, duo nebs and antibiotics. Cultures have been obtained. Patient may also have an element of CHF. Cardiology has been consulted. Wean oxygen as tolerated. It does not appear the patient has a pulmonary emboli. Lower extremity Dopplers are negative, but pulmonary artery pressure is elevated on echocardiogram with mild to moderate global right ventricular dysfunction. Unclear if this is secondary to underlying pulmonary pathology with chronic respiratory failure versus possible PE. Patient without indication for anticoagulation from my perspective. Patient likely has advanced lung disease, but has canceled outpatient visits and PFTs previously. Patient can follow-up with nurse practitioner in 2 weeks after discharge. 3. Elevated troponin Unclear if elevated troponin is secondary to a primary cardiac event versus global hypoxia. Continue to support oxygenation. Cardiology has been consulted. 4. Chronic kidney disease stage III/seizure disorder/hypertension/hyperlipidemia/history of multiple cancers/BARBIE/tobacco abuse/Graves' disease Complicates care, management, recovery and prognosis. Noncompliant with BARBIE therapy at this time. Stressed the importance of smoking cessation. Some concern for patient's ability to comply with home medications. May benefit from dosing service to avoid unintentional overdose. Case management/social work to follow Inpatient E&M: [id number] [facility] Hosp L2
--- NOTE | 2020-09-18 12:55 | DCINST_ITS ---
Discharge Instructions Outpatient Procedure Reason For Visit: ACUTE RESP FAILURE, COPD EXACERBATION, ELEVATED Diet Discharge Diet: No restrictions Activity Discharge Activity: Return to Normal Activity Dressing / Incision Call your doctor if you observe: Fever of 101 or Higher, Shortness of breath, Dizziness, Fainting spells, Swelling in the ankles, Chest pain and Increased palpitations (irregular heartbeat) Follow Up Care Test Results: Test results from this visit will be discussed in further detail at your follow-up appointment, if applicable. Discharge Plan Admission Admit Date/Time: 09/13/20 21:01 Primary Reason for Your Visit: COPD exacerbation Attending Provider: Billy Rao Primary Care Provider: Mariangel Kulkarni NP Consulting Providers: Baudilio Hahn ; Alex Smalls Instructions Patient Instructions: Care for COPD, COPD: Using Inhalers, Treatments for COPD Discharge Orders/Prescriptions Prescriptions: New prednisone 10 mg tablet 40 mg PO DAILY@0800 Qty: 28 RF: 0 Continued (DME) oxygen-air delivery systems device device See Rx Instructions .ROUTE .MEDSUPPLY Qty: 1 RF: 0 docusate sodium 100 mg capsule 100 mg PO BID PRN (Reason: Constipation) RF: 0 calcium carbonate-vitamin D3 [Calcium 600 with Vitamin D3] 600 mg(1,500mg) - 500 unit capsule 1 cap PO BID Qty: 180 RF: 3 albuterol sulfate [ProAir HFA] 90 mcg/actuation HFA aerosol inhaler 2 puff INHALATION Q4H PRN (Reason: shortness of breath or wheezing) 90 Days Qty: 25.5 RF: 3 amlodipine 10 mg tablet 10 mg PO DAILY Qty: 90 RF: 3 clonidine HCl 0.2 mg tablet 0.2 mg PO BID Qty: 180 RF: 3 methimazole 5 mg tablet 2.5 mg PO DAILY Qty: 45 RF: 3 metoprolol succinate 100 mg tablet extended release 24 hr 100 mg PO DAILY Qty: 90 RF: 3 phenytoin sodium extended 100 mg capsule 100 mg PO BID Qty: 180 RF: 3 rosuvastatin 10 mg tablet 10 mg PO DAILY Qty: 90 RF: 3 trazodone 100 mg tablet 100 mg PO QHS Qty: 90 RF: 3 Symbicort 160-4.5 mcg/actuation HFA aerosol inhaler 2 puff INHALATION BID Qty: 30.6 RF: 3 lansoprazole 30 mg capsule,delayed release(DR/EC) 30 mg PO DAILY Qty: 90 RF: 3 tramadol 50 mg tablet 50 mg PO TID PRN (Reason: pain) Qty: 60 RF: 5 ipratropium-albuterol 0.5 mg-3 mg(2.5 mg base)/3 mL solution for nebulization 3 ml INHALATION Q4H PRN (Reason: shortness of breath or wheezing) Qty: 180 RF: 3 hydrocodone-acetaminophen 10-325 mg tablet 1 tablet PO BID PRN (Reason: pain (scale score 7-10)) Qty: 60 RF: 0 buspirone 7.5 mg tablet 7.5 mg PO TID RF: 0 (DME) nebulizer Qty: 1 RF: 0 alprazolam 0.5 mg tablet 0.5 mg PO BID PRN (Reason: anxiety) Qty: 60 RF: 0 Referrals: [facility] [Provider Group] Ginger Mayo NP, [employer]-C [Nurse Practitioner] - Within 2 Weeks Mariangel Kulkarni NP, [employer] [Primary Care Provider] - In 1 Week Disposition Patient Disposition: Home, self care
[2020-09-18] MEDS: Potassium Chloride Oral Tablet 20 MEQ 60 MEQ PO (13:26)
--- NOTE | 2020-09-18 13:33 | CASEMGMT ---
Received tc from [facility]. They are able to accept pt. Pt aware and attempted to reach dtr argelia Solorzano full. Pt does not need a different script for O2. Faxed dc instructions to [facility].
--- NOTE | 2020-09-18 15:55 | PHA.DC.MC ---
Pharmacy Service has performed discharge medication reconciliation and counseling for this patient. The patient was counseled on the following discharge medications and changes in medications for homegoing were reviewed. 1. PREDNISONE The Reason for Use, instructions for use, and potential side effects were reviewed for all new medications. The patient's questions regarding all of their medications were answered. The patient demonstrated some understanding but would benefit from further education and reinforcement. Home Medications oxygen-air delivery systems #1 03/26/19 calcium carbonate 600 mg (1,500 mg)-vitamin D3 500 unit capsule 1 cap PO BID #180 cap 06/04/19 docusate sodium 100 mg capsule 100 mg PO BID PRN 06/04/19 nebulizer #1 ea 02/11/20 albuterol sulfate 90 mcg/actuation aerosol inhaler 2 puff INHALATION Q4H PRN 90 Days #25.5 g 03/09/20 amlodipine 10 mg tablet 10 mg PO DAILY #90 tab 03/09/20 clonidine HCl 0.2 mg tablet 0.2 mg PO BID #180 tab 03/09/20 methimazole 5 mg tablet 2.5 mg PO DAILY #45 tab 03/09/20 metoprolol succinate 100 mg tablet,extended release 24 hr 100 mg PO DAILY #90 tab 03/09/20 phenytoin sodium extended 100 mg capsule 100 mg PO BID #180 cap 03/09/20 rosuvastatin 10 mg tablet 10 mg PO DAILY #90 tab 03/09/20 trazodone 100 mg tablet 100 mg PO QHS #90 tab 03/09/20 budesonide-formoterol HFA 160 mcg-4.5 mcg/actuation aerosol inhaler 2 puff INHALATION BID #30.6 g 04/30/20 lansoprazole 30 mg capsule,delayed release 30 mg PO DAILY #90 cap 04/30/20 tramadol 50 mg tablet 50 mg PO TID PRN #60 tablet 08/14/20 alprazolam 0.5 mg tablet 0.5 mg PO BID PRN #60 tablet 08/24/20 hydrocodone 10 mg-acetaminophen 325 mg tablet 1 tablet PO BID PRN #60 tablet 09/10/20 ipratropium 0.5 mg-albuterol 3 mg (2.5 mg base)/3 mL nebulization soln 3 ml INHALATION Q4H PRN #180 ml 09/10/20 buspirone 7.5 mg PO TID 09/18/20 prednisone 40 mg PO DAILY@0800 #28 tab 09/18/20 The patient's discharge medication list was reviewed for discrepancies and discrepancies were resolved.
[2020-09-18] MEDS: Potassium Chloride Oral Tablet 20 MEQ 40 MEQ PO (17:07)
--- NOTE | 2020-09-18 18:02 | PCM.DC.SUM ---
Providers Date of Admission: 09/13/20 Primary Care Physician: NENA Chua Consultations 09/13/20 20:58 Physician Consult Routine Consulting Provider: Alex Smalls Consulted Physician Type:: Ensemble Member Reason for Consult: Resp failure, COPD exac, hypotensive on pressors MD Notified: Yes Date Notified:: 09/13/20 Time Notified: 20:59 Method of Notification:: will cortext Physician Consult Routine Consulting Provider: Baudilio Hahn Consulted Physician Type:: CARD -[facility] Reason for Consult: NSTEMI Notified: Yes Date Notified:: 09/13/20 Time Notified: 20:58 Method of Notification:: will cortext Reason For Visit: ACUTE RESP FAILURE, COPD EXACERBATION, ELEVATED Diagnosis Discharge Diagnosis (1) Hypotensive episode: Status: Resolved Code(s): I95.9 - Hypotension, unspecified (2) Acute and chronic respiratory failure with hypoxia: Status: Chronic Code(s): J96.21 - Acute and chronic respiratory failure with hypoxia (3) Sleep apnea in adult: Status: Chronic Code(s): G47.30 - Sleep apnea, unspecified (4) HTN (hypertension): Status: Acute Code(s): I10 - Essential (primary) hypertension Qualifiers: Hypertension type: essential hypertension Qualified Code(s): I10 - Essential (primary) hypertension (5) CKD (chronic kidney disease) stage 3, GFR 30-59 ml/min: Status: Chronic Code(s): N18.30 - Chronic kidney disease, stage 3 unspecified Qualifiers: Chronic kidney disease stage 3 subtype: stage 3b (GFR 30-44) Qualified Code(s): N18.32 - Chronic kidney disease, stage 3b (6) Elevated troponin level: Status: Resolved Code(s): R77.8 - Other specified abnormalities of plasma proteins (7) Pulmonary embolism: Status: Ruled-out Code(s): I26.99 - Other pulmonary embolism without acute cor pulmonale Qualifiers: Pulmonary embolism type: single subsegmental (without acute cor pulmonale) Qualified Code(s): I26.93 - Single subsegmental pulmonary embolism without acute cor pulmonale (8) COPD exacerbation: Status: Chronic Code(s): J44.1 - Chronic obstructive pulmonary disease with (acute) exacerbation Medications at Discharge Home Medications oxygen-air delivery systems #1 03/26/19 calcium carbonate 600 mg (1,500 mg)-vitamin D3 500 unit capsule 1 cap PO BID #180 cap 06/04/19 docusate sodium 100 mg capsule 100 mg PO BID PRN 06/04/19 nebulizer #1 ea 02/11/20 albuterol sulfate 90 mcg/actuation aerosol inhaler 2 puff INHALATION Q4H PRN 90 Days #25.5 g 03/09/20 amlodipine 10 mg tablet 10 mg PO DAILY #90 tab 03/09/20 clonidine HCl 0.2 mg tablet 0.2 mg PO BID #180 tab 03/09/20 methimazole 5 mg tablet 2.5 mg PO DAILY #45 tab 03/09/20 metoprolol succinate 100 mg tablet,extended release 24 hr 100 mg PO DAILY #90 tab 03/09/20 phenytoin sodium extended 100 mg capsule 100 mg PO BID #180 cap 03/09/20 rosuvastatin 10 mg tablet 10 mg PO DAILY #90 tab 03/09/20 trazodone 100 mg tablet 100 mg PO QHS #90 tab 03/09/20 budesonide-formoterol HFA 160 mcg-4.5 mcg/actuation aerosol inhaler 2 puff INHALATION BID #30.6 g 04/30/20 lansoprazole 30 mg capsule,delayed release 30 mg PO DAILY #90 cap 04/30/20 tramadol 50 mg tablet 50 mg PO TID PRN #60 tablet 08/14/20 alprazolam 0.5 mg tablet 0.5 mg PO BID PRN #60 tablet 08/24/20 hydrocodone 10 mg-acetaminophen 325 mg tablet 1 tablet PO BID PRN #60 tablet 09/10/20 ipratropium 0.5 mg-albuterol 3 mg (2.5 mg base)/3 mL nebulization soln 3 ml INHALATION Q4H PRN #180 ml 09/10/20 buspirone 7.5 mg PO TID 09/18/20 prednisone 40 mg PO DAILY@0800 #28 tab 09/18/20 Hospital Course Operations None Procedures None Summary of Care Provided Minutes Spent on Discharge: 35 Hospital Course: Per HPI: The patient is a 80 y/o F w/ PMHx: Chronic COPD w/ Chronic Hypoxic Respiratory Failure (2L NC), Seizure disorder, HTN, HLD, GERD, Hx cervical s/p RADHA and colon CA s/p bowel resection, Tobacco use, Graves disease who presents to the [facility] ED as direct admission on 09/13/20 with history of worsening dyspnea over the last 1 to 2 days with significantly initial altered mental status with worsened wheezing, found by family with initially difficulty arousing and concern for pinpoint pupils noted to be on clonidine with potential double dose with EMS administration of Narcan prompting transition to the ED for evaluation. Patient per EMS was noted to initially be 54% oxygenation in the field placed on a CPAP and eventually in the ED at outside facility transition to 40% Ventimask once clinically improved and was refusing further CPAP usage. Patient administered aerosols as well as Solu-Medrol per EMS and improved upon ED evaluation and following treatment. ED physician outside facility noted mental status significantly improved and patient was completely oriented and able to make medical decisions. Patient declined any BiPAP consideration or any aggressive interventions including pressor therapy. Outside physician ED discussed with this patient the risks of using peripheral IVs with pressor therapy while completely oriented per his report and patient still declined placement of a central line. Hospital Course: 1. Shock of unknown etiology/acute hypoxic and hypercapnic respiratory failure secondary to acute COPD exacerbation/BARBIE/continued tobacco abuse -Continue with oxygen via nasal cannula, she is currently down to 4L -Off of pressors -Appreciate supervisory examiner assistance -Discontinue Levaquin -Continue with steroids, transitioned to p.o., and inhalers. We will plan for a 12-day prednisone taper on discharge -Encourage cessation of tobacco products 2. Non-STEMI/HTN/HLD -Consult to cardiology, based on her renal insufficiency as well as her hypoxia, this was felt to be the cause of her elevated troponin -No aggressive cardiac intervention, off heparin drip -Note she is hypertensive, will restart her home blood pressure medications -Continue with statin 3. CKD 3b -Creatinine is at baseline -Continue to monitor 4. Seizure disorder -Stable -Continue with her home phenytoin, her phenytoin level is low and she will need to follow-up with neurology as an outpatient 5. History of cervical cancer and colon cancer -She is status post a RADHA with BSO as well as a partial colectomy -Both are in remission 6. Graves' disease -Stable -Continue with methimazole 7. GERD -Stable -Continue with PPI Physical Exam Narrative General: Alert, Oriented x3, Cooperative, No apparent distress HEENT: Atraumatic, PERRLA, EOMI, Normocephalic Oral: Moist Mucosa Neck: Supple, No JVD Lungs: No rhonchi, No rales, Diminished, no wheezes Cardiovascular: Regular rate, Regular Rhythm, Normal S1, Normal S2, No murmurs Abdomen: Soft, Non Tender, Non-Distended, No Hepato-splenomegaly Extremities: No edema, Capillary Refill Less than 3 Seconds Skin: No rashes, No breakdown Neurological: Neuro grossly intact, Sensory exam intact to light touch and pain Psych/Mental Status: Normal Affect, Appropriate ABG / Lab / Microbiology Data Result Diagrams: 09/17/20 05:00 09/18/20 05:15 Laboratory: Laboratory Results - last 24 hr 09/18/20 09/18/20 05:15 05:15 Sodium 139 Potassium 3.1 L Chloride 102 Carbon Dioxide 33.0 H Anion Gap 4 L BUN 32 H Creatinine 1.86 H Estim Creat Clear Calc 19.72 Est GFR (MDRD) Af Amer 34 L Est GFR (MDRD) Non-Af 28 L BUN/Creatinine Ratio 17.2 Glucose 121 H Calcium 7.8 L Magnesium 1.7 Microbiology: Microbiology 09/13/20 15:00 Sputum, Expectorated/Coughed Gram Stain - Final 09/13/20 15:00 Sputum, Expectorated/Coughed Respiratory Culture - Final Presumptive C albicans 09/13/20 23:25 Mucosa - Nasopharyngeal Respiratory Panel (PCR) - Final 09/14/20 00:20 Urine Catheter - [place] Legionella Antigen - Final 09/14/20 00:20 Urine Catheter - [place] Streptococcus pneumoniae Antigen (M - Final D/C Instructions Discharge Diet: No restrictions Discharge Activity: Return to Normal Activity Call your doctor if you observe: Fever of 101 or Higher, Shortness of breath, Dizziness, Fainting spells, Swelling in the ankles, Chest pain and Increased palpitations (irregular heartbeat) Meaningful Use Info Meaningful Use Diagnoses (Choose all that apply): None applicable Discharge Plan Admission Admit Date/Time: 09/13/20 21:01 Primary Reason for Your Visit: COPD exacerbation Attending Provider: Billy Rao Primary Care Provider: Mariangel Kulkarni NP Consulting Providers: Baudilio Hahn ; Alex Smalls Instructions Patient Instructions: Care for COPD, COPD: Using Inhalers, Treatments for COPD Discharge Orders/Prescriptions Prescriptions: New prednisone 10 mg tablet 40 mg PO DAILY@0800 Qty: 28 RF: 0 Continued (DME) oxygen-air delivery systems device device See Rx Instructions .ROUTE .MEDSUPPLY Qty: 1 RF: 0 docusate sodium 100 mg capsule 100 mg PO BID PRN (Reason: Constipation) RF: 0 calcium carbonate-vitamin D3 [Calcium 600 with Vitamin D3] 600 mg(1,500mg) -500 unit capsule 1 cap PO BID Qty: 180 RF: 3 albuterol sulfate [ProAir HFA] 90 mcg/actuation HFA aerosol inhaler 2 puff INHALATION Q4H PRN (Reason: shortness of breath or wheezing) 90 Days Qty: 25.5 RF: 3 amlodipine 10 mg tablet 10 mg PO DAILY Qty: 90 RF: 3 clonidine HCl 0.2 mg tablet 0.2 mg PO BID Qty: 180 RF: 3 methimazole 5 mg tablet 2.5 mg PO DAILY Qty: 45 RF: 3 metoprolol succinate 100 mg tablet extended release 24 hr 100 mg PO DAILY Qty: 90 RF: 3 phenytoin sodium extended 100 mg capsule 100 mg PO BID Qty: 180 RF: 3 rosuvastatin 10 mg tablet 10 mg PO DAILY Qty: 90 RF: 3 trazodone 100 mg tablet 100 mg PO QHS Qty: 90 RF: 3 Symbicort 160-4.5 mcg/actuation HFA aerosol inhaler 2 puff INHALATION BID Qty: 30.6 RF: 3 lansoprazole 30 mg capsule,delayed release(DR/EC) 30 mg PO DAILY Qty: 90 RF: 3 tramadol 50 mg tablet 50 mg PO TID PRN (Reason: pain) Qty: 60 RF: 5 ipratropium-albuterol 0.5 mg-3 mg(2.5 mg base)/3 mL solution for nebulization 3 ml INHALATION Q4H PRN (Reason: shortness of breath or wheezing) Qty: 180 RF: 3 hydrocodone-acetaminophen 10-325 mg tablet 1 tablet PO BID PRN (Reason: pain (scale score 7-10)) Qty: 60 RF: 0 buspirone 7.5 mg tablet 7.5 mg PO TID RF: 0 (DME) nebulizer Qty: 1 RF: 0 alprazolam 0.5 mg tablet 0.5 mg PO BID PRN (Reason: anxiety) Qty: 60 RF: 0 Referrals: [facility] [Provider Group] Ginger Mayo [employer]CISION INSTRUMENT MAKER AND REPAIRER, [employer] REPAIRER-C [Nurse Practitioner] - Within 2 Weeks Mariangel Kulkarni NP, [employer] AND REPAIRER-C [Primary Care Provider] - In 1 Week Disposition Patient Disposition: Home Health Service Visit Charges Inpatient E&M: [id number] Disch Hosp
--- NOTE | 2020-09-18 19:36 | NURSING ---
Pt daughter came to pick pt up without any home o2 tank. Asked daughter to please bring in tank. She made some phone calls and reported that the home o2 tank was lost and Nobody knows where it is but the patient. Daughter progressively got more and more agitated. Wanted to take pt home with no supplimental o2. I educated them on the great risks of this but they insisted that she will be fine for the [address] Daughter requested to sign some paper that would allow them to just go. Pt and daughter educated about AMA papers and again the risks of leaving without o2. They requested I bring the AMA papers so they could just leave. AMA paper signed by the patient. Daughter left to bring car around. This nurse spoke privately with the patient and asked if it was truly her desire to leave without o2. She confirmed that she did. Again she was educated on the risks of this action. Again she confirmed she would be just fine. Patient belongings collected and pt taken out in .
--- NOTE | 2020-09-18 19:48 | NURSING ---
This morning, pt's daughter, Jeanine, wondering if pt would be discharged today. Made daughter aware that the doctor had not placed a discharge order yet, but according to the progress noted, it could be likely. Daughter stated she needed to know if she was discharged so she could arrange transportation. Around 1400, after discharge order placed by , attempted to call Jeanine to make aware of pt's discharge today. No answer and voicemail box was full. Around 1600, pt's daughter arrives and states the pt contacted her about being discharged. Pt's daughter did not bring home O2 tank for transport back to Jeanine's [facility] in [place]. Pt's daughter states she would call someone to go to the pt's house to get a portable tank for transport. Daughter then presses call light for RN and states the person who was going to bring the O2 tank it could not find it in the pt's house. Daughter states that herself and the pt both have O2 concentrators in their homes and she would be fine being transported on room air. RN did not feel comfortable discharging pt on room air. made aware.
--- NOTE | 2020-09-21 15:09 | CASEMGMT ---
RN CM notified that pt was d/c'd and no O2 was brought by dtr to take pt home. TC to pt dtr's phone, which is pt phone number. No answer and voicemail is full. TC to pt niece who is listed as next of kin. She states she does not have any other contact number for the patient or her dtr. States pt went to live with dtr in [place]. Unable to reach pt.
== END 2020-09-18 19:30 | disposition home health service (06) | DRG 190 ==
LOC: ICU 09-14 12:19 → PCU 09-17 15:37
PROVIDERS: Hospitalist; Internal Medicine Critical Care Medicine; Admitting Provider Family Medicine; PCP Nurse Practitioner; Visit Provider Family Medicine
DX: J44.1 Chronic obstructive pulmonary disease with (acute) exacerbation (principal); I21.4 Non-ST elevation (NSTEMI) myocardial infarction; J96.22 Acute and chronic respiratory failure with hypercapnia; J96.21 Acute and chronic respiratory failure with hypoxia; I26.93 Single subsegmental thrombotic pulmonary embolism without acute cor pulmonale; R57.9 Shock, unspecified; Z66 Do not resuscitate; G40.909 Epilepsy, unspecified, not intractable, without status epilepticus; E78.5 Hyperlipidemia, unspecified; N18.32 Chronic kidney disease, stage 3b; I12.9 Hypertensive chronic kidney disease with stage 1 through stage 4 chronic kidney disease, or unspecified chronic kidney disease; E05.00 Thyrotoxicosis with diffuse goiter without thyrotoxic crisis or storm; K21.9 Gastro-esophageal reflux disease without esophagitis; G47.33 Obstructive sleep apnea (adult) (pediatric); F17.210 Nicotine dependence, cigarettes, uncomplicated; Z90.49 Acquired absence of other specified parts of digestive tract; Z85.41 Personal history of malignant neoplasm of cervix uteri; Z91.19 Patient's noncompliance with other medical treatment and regimen; Z85.038 Personal history of other malignant neoplasm of large intestine; H91.90 Unspecified hearing loss, unspecified ear
CPT/HCPCS: 36415; 36600; 71045; 80048; 80053; 80185; 82803; 83735; 84100; 84145; 84439; 84443; 84484; 85025; 85610; 85730; 87070; 87205; 87449; 87633; 87641; 93306; 93970; 94640; 94667; 94668; 94762; 97110; 97162; 97166; 97535; 97802; 99251; 99406; J7030; J7040; J7050; Q9957; A4216; C8929; G0463